=== PATIENT | female | born 1980 | race Caucasian/White ===

== ENCOUNTER 2020-07-16 09:28 | Outpatient (REF) | payer OTHER, SELFPAY ==
[2020-07-16 12:03] LABS: Hematocrit 43.2 % (37-47); Hemoglobin 14.4 g/dl (12.0-16.0); Mean Corpuscular HGB Conc 33.3 g/dl (31.0-35.0); Mean Corpuscular Hemoglobin 30.3 pg (27.0-33.0); Mean Corpuscular Volume 90.9 fL (80-98); Platelet Count 281 X10*3/uL (160-400); Red Blood Count 4.75 X10*6/uL (4.20-5.50); Red Cell Distribution Width 12.3 % (11.0-16.0); White Blood Count 11.4 X10*3/uL (4.8-10.8)
[2020-07-16 12:43] LABS: Alanine Aminotransferase 46 U/L (0-31); Albumin Level 4.5 g/dL (3.5-5.0); Alkaline Phosphatase 66 U/L (39-117); Anion Gap 13 (12-20); Aspartate Amino Transferase 38 U/L (5-31); Bilirubin Direct 0.2 mg/dL (0.0-0.5); Bilirubin Total 0.6 mg/dL (0.0-1.0); Blood Urea Nitrogen 13 mg/dL (9-16); Carbon Dioxide 26 mmol/L (22-29); Chloride 104 mmol/L (96-108); Cholesterol 214 mg/dL; Estimated Glomerular Filt Rate > 60; Glucose Fasting 88 mg/dL (60-99); HDL Cholesterol 51 mg/dL; LDL Cholesterol Calculated 136 mg/dl; Potassium 4.3 mmol/L (3.3-5.1); Sodium 139 mmol/L (135-145); Total Protein 7.2 g/dL (6.5-8.0); Triglycerides 139 mg/dL
[2020-07-16 13:03] LABS: TSH reflex Free T4 1.72 uIU/mL (0.32-4.0)
[2020-07-16 15:22] LABS: CT PCR NOT DETECTED (Not Detect.); NG PCR NOT DETECTED (Not Detect.)
[2020-07-17 08:22] LABS: BV Int Neg Control Negative (Negative); BV Int Pos Control Positive (Positive)
[2020-07-19 05:42] LABS: HPV mRNA E6/E7 rflx Not Detected (Not Detected)
== END 2020-07-16 09:29 | disposition home or self-care (01) ==
LOC: HO.LAB 09:28
PROVIDERS: Obstetrics & Gynecology; PCP Hospitalist; Visit Provider Hospitalist
DX: Z01.419 Encounter for gynecological examination (general) (routine) without abnormal findings (principal); Z11.3 Encounter for screening for infections with a predominantly sexual mode of transmission; Z11.51 Encounter for screening for human papillomavirus (HPV)
CPT/HCPCS: 36415; 80048; 80061; 80076; 84443; 85027; 87480; 87491; 87510; 87591; 87624; 87660; 88142

== ENCOUNTER 2020-07-29 15:50 | Outpatient (REF) | payer OTHER, SELFPAY ==
--- NOTE | ~2020-07-29 | MM_ITS ---
EXAMINATION: MM SCREENING DIGITAL BREAST TOMOSYNTHESIS, BILATERAL CLINICAL INFORMATION: Screening. Asymptomatic. Age 40. No prior breast imaging. Family history breast cancer, paternal grandmother. The lifetime risk of breast cancer based on the Tyrer-Cuzick Model is 16%. COMPARISON: None (current study represents initial baseline exam). TECHNIQUE: Digital breast tomosynthesis is performed in both the craniocaudal and mediolateral oblique views along with computer-aided detection (CAD). Synthesized 2D images are generated from the tomosynthesis. Additional right CC and right MLO views are provided. FINDINGS: There are scattered areas of fibroglandular density (ACR BI-RADS breast composition Category b). There are no significant masses, abnormal calcifications, or other abnormalities. The axilla and skin contours are unremarkable. MM/MM tomosynthesis screening BI IMPRESSION: No mammographic evidence of malignancy. ASSESSMENT: BI-RADS 1: Negative RECOMMENDATION: Routine annual mammography screening. This patient's information was entered into a reminder system with a target due date for their next mammogram.
== END 2020-07-29 15:51 | disposition home or self-care (01) ==
LOC: HO.MAMMO 15:50
PROVIDERS: PCP Hospitalist; Visit Provider Hospitalist
DX: Z12.31 Encounter for screening mammogram for malignant neoplasm of breast (principal)
CPT/HCPCS: 77063; 77067

== ENCOUNTER 2020-12-24 15:51 | Outpatient (REF) | payer OTHER, SELFPAY ==
[2020-12-24 17:45] LABS: Alanine Aminotransferase 18 U/L (0-31); Albumin Level 4.3 g/dL (3.5-5.0); Alkaline Phosphatase 57 U/L (39-117); Anion Gap 11 (12-20); Aspartate Amino Transferase 18 U/L (5-31); Bilirubin Total 0.4 mg/dL (0.0-1.0); Blood Urea Nitrogen 15 mg/dL (9-16); Calcium 9.1 mg/dL (8.4-10.2); Carbon Dioxide 23 mmol/L (22-29); Chloride 107 mmol/L (96-108); Estimated Glomerular Filt Rate > 60; Glucose Random 144 mg/dL (60-115); Potassium 3.9 mmol/L (3.3-5.1); Sodium 137 mmol/L (135-145)
== END 2020-12-24 15:52 | disposition home or self-care (01) ==
LOC: HO.LAB 15:51
PROVIDERS: Visit Provider Hospitalist
DX: R74.8 Abnormal levels of other serum enzymes (principal)
CPT/HCPCS: 36415; 80053

== ENCOUNTER 2021-11-12 09:32 | Outpatient (REF) | payer OTHER, SELFPAY ==
[2021-11-12 11:47] LABS: Hematocrit 40.8 % (37.0-47.0); Hemoglobin 13.7 g/dl (12.0-16.0); Mean Corpuscular HGB Conc 33.6 g/dl (31.0-35.0); Mean Corpuscular Hemoglobin 30.6 pg (27.0-33.0); Mean Corpuscular Volume 91.1 fL (80.0-98.0); Platelet Count 205 X10*3/uL (160-400); Red Blood Count 4.48 X10*6/uL (4.20-5.50); Red Cell Distribution Width 12.7 % (11.0-16.0); White Blood Count 9.2 X10*3/uL (4.8-10.8)
[2021-11-12 12:15] LABS: TSH reflex Free T4 1.09 uIU/mL (0.32-4.0)
[2021-11-12 12:24] LABS: Cholesterol 218 mg/dL; HDL Cholesterol 50 mg/dL; LDL Cholesterol Calculated 145 mg/dl; Triglycerides 116 mg/dL
== END 2021-11-12 09:33 | disposition home or self-care (01) ==
LOC: HO.WFDLDS 09:32
PROVIDERS: Visit Provider Hospitalist
DX: Z00.00 Encounter for general adult medical examination without abnormal findings (principal)
CPT/HCPCS: 36415; 80061; 84443; 85027

== ENCOUNTER 2022-04-11 18:10 | Emergency (ER) | payer OTHER, SELFPAY ==
--- NOTE | ~2022-04-11 | US_ITS ---
Indication: Pain, evaluate for muscle tear Real-time imaging by the government employee. Findings; No suspicious finding on the imaging submitted. No fluid collection. US/US extremity nonvascular palacios IMPRESSION: There is no obvious finding on ultrasound. Given history recommend MR for full evaluation
[2022-04-11 18:19] VITALS: BP 156/101; PULSE 96; RESP 18; TEMP 36.7; O2SAT 98; BMI 40.2
--- NOTE | 2022-04-11 18:20 | ED.LOWEXIN ---
HPI - Extremity Injury (Lower) General Chief Complaint: Extremity Injury, Lower Stated Complaint: right leg injury Time Seen by Provider: 04/11/22 18:20 Source: patient Mode of arrival: ambulatory History of Present Illness HPI Narrative: 42-year-old feel with a past medical history of hypothyroid, presenting to the ED complaining of right half pain s/p hearing pop while doing kick boxing class afternoon. Denies direct trauma to calf. Denies injury to either area. Reports difficulty ambulating secondary to pain. Denies fever, chills complaint: leg injury Onset (ago): hour(s) Related Data Previous Rx's Medication Instructions Recorded levothyroxine 100 mcg tablet 200 mcg PO DAILY #180 tabs 10/29/21 carbamide peroxide 6.5 % ear drops 5 drp otic (ear) left DAILY 4 days 01/09/22 (Debrox) #15 mL Allergies Allergy/AdvReac Type Severity Reaction Status Date / Time sulfacetamide Allergy Intermediate allergy Verified 01/09/22 16:55 [From Sulfacet-R] Review of Systems Review of Systems: Constitutional: No Fever, No Chills ENT/Mouth: No Ear Pain, No Nasal Congestion, No sore throat, No Rhinorrhea, No Swallowing Difficulty Cardiovascular: No Chest Pain, No SOB Respiratory: No Cough, No Sputum, No Wheezing Gastrointestinal: No Nausea, No Vomiting, No Diarrhea, No Constipation, No Abdominal pain Genitourinary: No Dysuria, No Urinary Frequency, No Hematuria, No Flank Pain Musculoskeletal: + calf pain, No Myalgias, No Joint Swelling Skin: No Skin Lesions, No rash Neuro: No Weakness, No Numbness, No Paresthesias Yes all other systems are reviewed and are negative Constitutional: Constitutional: Reports as per HPI [facility] Past Medical History Attestation statement: The following information was validated with the patient. Surgical History No pertinent past surgical history Family History Family History Father No problems noted. Mother No problems noted. 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 Current occupational exposures/hazards: No Gender identity: Female Cognitive needs: No Hearing needs: No Vision needs: No Physical Exam Vital Signs: Vital Signs: Last Vital Signs Temp 98.1 F 04/11/22 18:19 Pulse 96 04/11/22 18:19 Resp 18 04/11/22 18:19 BP 156/101 H 04/11/22 18:19 Pulse Ox 98 04/11/22 18:19 O2 Del Method 04/11/22 18:19 BMI result Body Mass Index 40.2 Const: General: cooperative, healthy appearing and no acute distress Orientation/consciousness: patient oriented x3 Limitations: no limitations HEENT: Head: Yes normal to inspection and Yes atraumatic Ears: hearing grossly normal bilaterally General nose exam: Normal external nose present Face and sinus: Yes normal facial exam Eyes: General: appearance normal, both eyes and all related structures EOM: EOMs intact bilaterally Neck: Neck: Yes normal visual inspection and Yes no meningeal signs Resp: Effort & Inspection: normal respiratory effort and no respiratory distress Cardio: Rate: regular rate Heart sounds: S1 normal heart sound present and S2 normal heart sound present Peripheral pulses: Peripheral pulses 2+ throughout Skin: Rashes: no rashes Wounds: no wounds Neuro: General: patient oriented x3, tone normal and no meningeal signs Extrem: Other: Right calf without noted deformity/ecchymosis or erythema. Tender to mid calf with mild swelling. Negative Hickman test Course Course Course Narrative: US extremity nonvascular palacios IMPRESSION: There is no obvious finding on ultrasound. Given history recommend MR for full evaluation >> patient placed in walking boot and supplied with crutches is to follow-up with orthopedics Results discussed with patient including worrisome signs and symptoms and strict return precautions, and when to return to the emergency department. They verbalized understanding and feel safe for discharge at this time. Medical Decision Making Medical Decision Making MDM Narrative: 42-year-old feel with a past medical history of hypothyroid, presenting to the ED complaining of right half pain s/p hearing pop while doing kick boxing class afternoon. On exam hypertensive likely from pain, ambulating with limping gait, physical exam as above. Neurovascular intact distally. Negative Hickman test. Concern for gastrocnemius muscle tear/sprain vs achilles injury. Low suspicion for DVT. No evidence of infection Plan: Ultrasound Differential Diagnosis Differential Diagnoses: The differential diagnosis associated with the presentation includes As above Independent Interpretation I performed an independent interpretation of an: Ultrasound Radiology Impression Discussion of test interpretation with radiology: I have reviewed the radiologist's reading. Prescription Management I considered prescription management with: Pain Medication Discharge Plan Discharge Clinical Impression: Gastrocnemius muscle strain Patient Disposition: Home, Self-Care Instructions: Muscle Strain (ED), R.I.C.E. Treatment (ED) Additional Instructions: you likely strained her calf muscle. Use walking boot and crutches as needed. Bear weight only as tolerated. Have close follow-up with orthopedic Ice and elevate Take Tylenol and Motrin. If symptoms persist or worsen return to the emergency department Prescriptions: No Action levothyroxine 100 mcg tablet 200 mcg PO DAILY Qty: 180 1RF Debrox 6.5 % drops 5 drp otic (ear) left DAILY 4 Days Qty: 15 0RF Referrals: [facility] – [place] Orthopedic Surgeons [Provider Group] - 5 days
== END 2022-04-11 21:26 | disposition home or self-care (01) ==
PROVIDERS: Emergency Provider Emergency Medicine
DX: S86.811A Strain of other muscle(s) and tendon(s) at lower leg level, right leg, initial encounter (principal); X50.9XXA Other and unspecified overexertion or strenuous movements or postures, initial encounter; M79.661 Pain in right lower leg; F17.210 Nicotine dependence, cigarettes, uncomplicated; Y93.71 Activity, boxing; Y92.9 Unspecified place or not applicable; Y99.9 Unspecified external cause status
CPT/HCPCS: 76882; 99282; 99284

== ENCOUNTER → 2022-04-28 13:49 | Outpatient (BNVA) | payer OTHER, SELFPAY | PROVIDERS: Visit Provider Physician Assistant | DX: S86.811A Strain of other muscle(s) and tendon(s) at lower leg level, right leg, initial encounter (principal) ==

== ENCOUNTER 2022-06-03 16:02 | Outpatient (REF) | payer OTHER, SELFPAY | END 2022-06-03 16:03 | disposition home or self-care (01) | LOC: HO.LAB 16:02 | PROVIDERS: PCP Hospitalist; Visit Provider Hospitalist | DX: E03.9 Hypothyroidism, unspecified (principal) | CPT/HCPCS: 36415; 84439; 84443 ==

== ENCOUNTER 2022-06-17 15:49 | Outpatient (REF) | payer OTHER, SELFPAY ==
--- NOTE | ~2022-06-17 | MM_ITS ---
EXAMINATION: MM SCREENING DIGITAL BREAST TOMOSYNTHESIS, BILATERAL CLINICAL INFORMATION: Screening. Asymptomatic. The lifetime risk of breast cancer based on the Tyrer-Cuzick Model is 18.5%. COMPARISON: Mammography: 07/29/2020 TECHNIQUE: Digital breast tomosynthesis is performed in both the craniocaudal and mediolateral oblique views along with computer-aided detection (CAD). Synthesized 2D images are generated from the tomosynthesis. FINDINGS: There are scattered areas of fibroglandular density (ACR BI-RADS breast composition Category b). Within the right breast on craniocaudal view medially, there is a circumscribed approximately 6 mm in diameter density without calcifications lying approximately 8 cm from the nipple for which spot compression view is recommended. No correlate on mediolateral oblique projection is identified. Within the superior aspect of the left breast, there is an asymmetric density for which spot compression view is recommended. I do not definitely see a correlate on craniocaudal view. MM/MM tomosynthesis screening BI IMPRESSION: Bilateral densities for further evaluation as described. ASSESSMENT: BI-RADS 0: Incomplete - Need Additional Imaging Evaluation RECOMMENDATION: 1. Additional views of the bilateral breasts. 2. Targeted ultrasound if warranted after review of the additional views. 3. Radiology department staff will contact the patient for additional imaging. This patient's information was entered into a reminder system with a target due date for their next mammogram.
== END 2022-06-17 15:50 | disposition home or self-care (01) ==
LOC: HO.MAMMO 15:49
PROVIDERS: Visit Provider Hospitalist
DX: Z12.31 Encounter for screening mammogram for malignant neoplasm of breast (principal)
CPT/HCPCS: 77063; 77067

== ENCOUNTER 2022-07-01 16:00 | Outpatient (RCR) | payer OTHER, SELFPAY ==
--- NOTE | 2022-05-20 17:11 | MHC.PT.EP ---
[facility] [place] Office [place] Office [place] Office [address] Laquita Ibanez [address] [phone] F: [phone] F: [phone] F: [phone] F: [phone] Physical Therapy Plan of Care Date of Evaluation: Date of Surgery: Diagnosis: R calf strain/sprain Assessment: Patient is a 42 y.o. feamle who is referred to PT by KYLE Estrada, with Dx of RIGHT calf sprain/strain. Patient impairments include pain, limited ROM, weakness, antalgic gait. Patient current functional limitations are low squats to cabinets, climb, kickboxing/ vigorous exercises, hiking, and walking long distances. Patient will benefit from skilled PT to address aforementioned impairments and functional limitations to meet established goals. Frequency and Duration: The patient will be seen 1x/week for 4 weeks Short Term Goals: 2 weeks Patient demonstrates consistency and independence with HEP to self manage symptoms. Patient presents with increased R ankle DF 0 degrees to restore normal heel to toe gait pattern. Comprehensive Ophthalmologist Goals: 4 weeks Patient presents with increased R ankle eversion 5/5 to be able to perform low squats to cabinets. Patient presents with increased R ankle DF AROM 5 degrees to be able to climb hills when walking outdoors. Treatment Plan: Modalities to reduce pain, spasms and effusion. Manual therapy to restore motion and function. Therapeutic exercise to improve strength and flexibility. Neuromuscular re-education for posture and balance. Therapeutic activities to return to functional activities of daily living. Electronically signed by: Francia Forrester, PT, DPT Please sign and return to therapist. Thank you for your referral.
--- NOTE | 2022-07-02 17:57 | MHC.PT.DC ---
[facility] [place] Office [place] Office [place] Office [address] Laquita Ibanez [address] [phone] F: [phone] F: [phone] F: [phone] F: [phone] Physical Therapy Discharge Report Diagnosis: R calf strain/sprain Date of Surgery: Date of Evaluation: 05/20/22 Date of Discharge: 07/02/22 Treatments to Date: 6 Cancellations to Date: No Shows to Date: Discharge Status: Achieved Goals Improved Function Independent with HEP Discharge Summary: Pt roosevelt all dynamic activities w/o px to her gastroc . Significant increase with LEF'S All Goals met. Patient discharged from PT. Electronically signed by: Francia Forrester, PT, DPT Please sign and return to therapist. Thank you for your referral.
== END 2022-07-02 17:58 | disposition home or self-care (01) ==
LOC: HO.PT 16:00
PROVIDERS: PCP Hospitalist; Visit Provider Physician Assistant
DX: S86.811D Strain of other muscle(s) and tendon(s) at lower leg level, right leg, subsequent encounter (principal)
CPT/HCPCS: 97035; 97110; 97140; 97161; 97530

== ENCOUNTER 2022-07-17 11:07 | Outpatient (REF) | payer OTHER, SELFPAY ==
[2022-07-17 12:40] LABS: Estimated Average Glucose 108 mg/dL; Hemoglobin A1c % 5.4 %
[2022-07-17 13:10] LABS: TSH reflex Free T4 4.92 uIU/mL (0.32-4.0)
[2022-07-17 13:49] LABS: Free T4 (Free Thyroxine) 1.29 ng/dL (0.71-1.85)
== END 2022-07-17 11:08 | disposition home or self-care (01) ==
LOC: HO.LAB 11:07
PROVIDERS: PCP Hospitalist; Visit Provider Hospitalist
DX: Z00.00 Encounter for general adult medical examination without abnormal findings (principal); R73.09 Other abnormal glucose
CPT/HCPCS: 36415; 83036; 84439; 84443

== ENCOUNTER 2022-07-23 14:48 | Outpatient (REF) | payer OTHER, SELFPAY ==
--- NOTE | ~2022-07-23 | MM_ITS ---
EXAMINATION: MM DIAGNOSTIC DIGITAL BREAST TOMOSYNTHESIS, BILATERAL CLINICAL INFORMATION: Recall from screening for subtle asymmetric density medial right breast and upper left breast, suspect summation artifact or incompletely compressed glandular tissue. COMPARISON: Mammography: 06/17/2022, 05/29/2020 (baseline). TECHNIQUE: Digital breast tomosynthesis is performed. 2D images are generated from the tomosynthesis. The following views are obtained: Spot right CC, spot left MLO. FINDINGS: There are scattered areas of fibroglandular density (ACR BI-RADS breast composition Category b). The additional views show no underlying mass or architectural abnormality or persistent asymmetric density. Results are discussed with the patient at time of visit. MM/MM tomosynthesis added view BI IMPRESSION: Additional views show no significant changes from baseline exam. ASSESSMENT: BI-RADS 1: Negative RECOMMENDATION: Routine annual mammography screening. This patient's information was entered into a reminder system with a target due date for their next mammogram.
== END 2022-07-23 14:49 | disposition home or self-care (01) ==
LOC: HO.MAMMO 14:48
PROVIDERS: PCP Hospitalist; Visit Provider Hospitalist
DX: R92.2 Inconclusive mammogram (principal)
CPT/HCPCS: 77062; 77066

== ENCOUNTER 2022-10-19 11:46 | Outpatient (AMB) | payer OTHER, SELFPAY ==
[2022-10-19 13:01] VITALS: BP 138/78; PULSE 96; TEMP 35.4; O2SAT 98
--- NOTE | 2022-10-19 13:01 | MHC.OFFWIV ---
Intake Vital Signs 10/19/22 13:01 Height 5 ft 5 in BP 138/78 Blood Pressure Location Lt brachial Position Sitting Pulse 96 Pulse Source Pulse Oximeter Temp 95.7 F L Temp Source Temporal Artery Scan Pulse Oximetry (%) 98 Oxygen Delivery Method Room Air Intake Visit Reasons: EST/left ear ache/[phone] Patient Tobacco Use Status: Current everyday Tobacco user (rarely smokes) Allergies sulfacetamide [From Sulfacet-R] Allergy (Intermediate, Verified 10/19/22 13:01) allergy Do you need a note to return to daycare/school/sports/work: No HPI HPI Comments History of Present Illness Details 42-year-old female presents for left-sided ear pain for the past 2 weeks. States that she has been taking [id number] medication with poor effect. She does report a sore throat, but does not report measured fevers, chills, dizziness, loss balance, palpitations, or rashes. PFSH Surgical History No pertinent past surgical history Family History Father No problems noted. Mother No problems noted. 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 occupational exposures/hazards: No Gender identity: Female Cognitive needs: No Hearing needs: No Vision needs: No Review of Systems Const Details: Constitutional: No Fever, No Chills ENT/Mouth: Positive left Ear Pain, No Hoarseness, positive sore throat Eyes: No Eye Pain, No Swelling, No Redness, No Foreign Body Cardiovascular: No Chest Pain, No SOB Respiratory: No Cough, No Dyspnea Gastrointestinal: No Nausea, No Vomiting, No Diarrhea, No abdominal Pain Genitourinary: No Dysuria, No Hematuria Musculoskeletal: No joint pain, No Myalgias, No Joint Swelling Skin: No Skin lacerations, No rash Neuro: No Weakness, No Dizziness, No Headache All systems reviewed & are unremarkable except as noted in HPI and below Physical Exam Vital Signs: Last Vital Signs Temp 95.7 F L 10/19/22 13:01 Pulse 96 10/19/22 13:01 BP 138/78 10/19/22 13:01 Pulse Ox 98 10/19/22 13:01 Oxygen Delivery Method Room Air 10/19/22 13:01 Appearance: Alert. Oriented X3. No acute distress. Eyes: Pupils equal, round and reactive to light. ENT: Pharynx normal. Left tympanic membrane erythematous, bulging, suppurative without perforation. Bilateral canals intact. Left canal impacted with cerumen, cerumen disimpacted. No mastoid tenderness. No tenderness to tragal pressure. Neck: Normal inspection. Neck supple. No vertebral tenderness or step-offs. No nuchal rigidity. CVS: Normal heart rate and rhythm. Pulses normal. Respiratory: No respiratory distress. Breath sounds normal. Skin: Skin warm and dry. Normal skin color. Normal skin turgor. Extremities: Gait well balanced well coordinated. Neuro: No motor deficit. No sensory deficit. Cranial nerves 2-12 intact. Assessment & Plan Assessment & Plan (1) Otitis media: Code(s): H66.90 - Otitis media, unspecified, unspecified ear (2) Impacted cerumen of both ears: Code(s): H61.23 - Impacted cerumen, bilateral Plan 42-year-old female presents for left-sided ear pain and sore throat for the past several weeks. She does have a history of cerumen impaction and otitis media. Exam indicates impacted cerumen to the left canal, right tympanic membrane and canal are clear. After cerumen disimpaction by irrigation lavage by JOE, it is noted that patient's left tympanic membrane is erythematous, bulging, with suppurative effusions without perforation. Considering that the patient has been treated multiple times in the past with Augmentin for otitis media, will treat accordingly. Patient has strep pharyngitis test is pending, this medication will also cover for strep. Patient does not have any fevers, chills, no indication of mastoiditis, or nuchal rigidity. No meningeal sign. No rashes. Patient verbalized understanding of discharge instructions. Verbalized understandings of signs and symptoms indicating need for emergent intervention. Orders: Orders AMB Rapid Strep Screen Today J02.9 - Acute pharyngitis, unspecified Medications: New amoxicillin-pot clavulanate 875-125 mg 1 tab PO Q12H 10 days 20 tabs 0RF Patient Instructions: You were evaluated for left-sided ear pain and sore throat. Her strep test is pending. Your exam indicates left otitis media, and internal ear infection. We disimpacted cerumen from the left canal. We are treating you for otitis media with Augmentin 875 mg every 12 hours for the next 10 days. This will also cover for pharyngitis, your strep test is pending. If your test is positive, you do not need to have any further care as this medication does cover for strep pharyngitis. Alternate Tylenol 650 mg every 6 hours and Motrin 600 mg every 6 hours as needed for pain and fever management. Consider taking these medications 3 hours apart so you have pain and fever management every 3 hours. Write down what time you take these medications to prevent accidental overdose. Motrin is the same medication as Advil and ibuprofen. Tylenol is the same medication as acetaminophen. Thank you for choosing this urgent care for evaluation. Please follow-up with primary care physician as needed. Return to the emergency department for any new, concerning, or worsening symptoms. Coding Level of Care Code Est Pt Level 3 (41236) Diagnoses Otitis media H66.90 Impacted cerumen of both ears H61.23
== END 2022-10-19 14:25 | disposition home or self-care (01) ==
PROVIDERS: PCP Hospitalist; Visit Provider Nurse Practitioner Family
DX: H66.90 Otitis media, unspecified, unspecified ear (principal); H61.23 Impacted cerumen, bilateral
CPT/HCPCS: 99213

== ENCOUNTER 2022-10-29 09:49 | Outpatient (AMB) | payer OTHER, SELFPAY ==
--- NOTE | 2022-10-29 10:41 | MHC.OFFWIV ---
Intake Vital Signs 10/29/22 10:57 BP 118/78 Blood Pressure Location Rt brachial Position Sitting Pulse 60 Temp 98.7 F Temp Source Temporal Artery Scan Pulse Oximetry (%) 98 Oxygen Delivery Method Room Air Intake Visit Reasons: EP Ear pain (lobby) Intake Note: Patient here for left ear pain, she came to be seen in our walk in about 10 days ago and was given antibiotics, she has now finished meds and feels like it didnt help because she is still having the same issue. Patient Tobacco Use Status: Current everyday Tobacco user Allergies sulfacetamide [From Sulfacet-R] Allergy (Intermediate, Verified 10/19/22 13:01) allergy HPI EP Ear pain (lobby) HPI Details Patient is a 42-year-old female who comes to the walk-in clinic complaining of persistent fullness to the left greater than right ear for some weeks now. She was evaluated 10 days ago and diagnosed otitis media, prescribed Augmentin states that she completed the course however symptoms have not improved. She denies fever or chills, headache or dizziness, malaise or myalgias, sore throat, cough, or other respiratory symptoms or significant associated symptoms. She does have some loss of hearing and hears crackling in the ears. No history of his own persistent ear infections since being diagnosed with COVID a few years ago, at which time she states that she had some difficulty clearing the infection. No underlying immunocompromising issues reported. [facility] Surgical History No pertinent past surgical history Family History Father No problems noted. Mother No problems noted. 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 occupational exposures/hazards: No Gender identity: Female Cognitive needs: No Hearing needs: No Vision needs: No Review of Systems Const All systems reviewed & are unremarkable except as noted in HPI and below Physical Exam Vital Signs: Last Vital Signs Temp 98.7 F 10/29/22 10:57 Pulse 60 10/29/22 10:57 BP 118/78 10/29/22 10:57 Pulse Ox 98 10/29/22 10:57 Oxygen Delivery Method Room Air 10/29/22 10:57 Const General: cooperative, healthy appearing, comfortable, no acute distress, alert, awake, Physically active and well groomed; No anxious, diaphoretic, ill appearing, intoxicated appearing, poor hygiene or tired appearing Nutritional Appearance: average body habitus Orientation/consciousness: oriented to person Limitations: no limitations HEENT Head: Yes normal to inspection, Yes normocephalic and Yes atraumatic Ears: hearing grossly normal bilaterally, external ears normal, Abnormal EAC present (left) cerumen impaction and TM abnormal dull and erythematous Face and sinus: Yes normal facial exam, Yes sinuses nontender and Yes face symmetric Eyes General: appearance normal, both eyes and all related structures Neck Neck: Yes normal visual inspection, Yes full ROM, Yes no lymphadenopathy, Yes trachea midline, Yes supple and No anterior neck swelling Chest Chest palpation & inspection: normal palpation of entire chest wall Resp Effort & Inspection: normal respiratory effort Skin Other: Good color, warm and dry Neuro General: oriented to person Psych Appearance: grossly normal Mental Status: mental status grossly normal Speech and movement: Normal speech and movement present Affect: normal affect Attitude: cooperative Thought process: Normal thought process present Insight: Good insight present (Psych) Judgement: Good judgement present (Psych) Office Procedures Cerumen Removal From which ear canal was the cerumen removed: left Removal: otoscope w/curette Notes: patient tolerated procedure well and ear canal clear (Only small residual) [id number] Wax Removal by Spoon/Curette Assessment & Plan Assessment & Plan (1) Otitis media: Code(s): H66.90 - Otitis media, unspecified, unspecified ear Plan: Patient with apparent persistent otitis media on the right side, and apparent acute otitis externa underneath her excessive cerumen on the left ear canal. I removed a significant amount of cerumen from the left canal. Will put her on a new course of oral antibiotics for the otitis media, and drops for the right side. She should follow-up if symptoms persist or worsen. (2) Otitis externa: Code(s): H60.90 - Unspecified otitis externa, unspecified ear Medications: New cefdinir 300 mg PO BID 10 days 20 caps 0RF [id number]-[id number]-[id number] 3.5-10,000-1 mg/mL-unit/mL-% 4 drps otic (ear) left QID 7 days 10 mL 0RF Coding Level of Care Code Est Pt Level 4 (18822) Diagnoses Otitis media H66.90 Otitis externa H60.90 CPT Codes Office Procedure - CPT: 94353-Wbo Wax Removal by Spoon/Curette ([id number])
[2022-10-29 10:57] VITALS: BP 118/78; PULSE 60; TEMP 37.1; O2SAT 98
== END 2022-10-29 11:53 | disposition home or self-care (01) ==
PROVIDERS: PCP Hospitalist; Visit Provider Physician Assistant Medical
DX: H66.92 Otitis media, unspecified, left ear (principal); H60.92 Unspecified otitis externa, left ear
CPT/HCPCS: 69210; 99214

== ENCOUNTER 2022-10-30 16:27 | Outpatient (AMB) | payer OTHER, SELFPAY ==
--- NOTE | 2022-10-30 16:35 | MHC.PC.OV ---
Vital Signs 10/30/22 16:38 Height 5 ft 5 in Weight 236 lb BMI 39.3 BP 124/74 Blood Pressure Location Lt brachial Position Sitting Pulse 82 Pulse Source Pulse Oximeter Pulse Oximetry (%) 99 Intake Visit Reasons: Bumps on back area Intake Note: pt is here for bumps on upper back, unsure of how long it was there. 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 Accompanied by: Self / Same As Patient Allergies sulfacetamide [From Sulfacet-R] Allergy (Intermediate, Verified 10/30/22 17:00) allergy Medication List - Last Reconciled 10/30/22 by Lakia Duncan CNP cefdinir 300 mg PO BID 10 days levothyroxine 200 mcg (2 x 100 mcg) PO DAILY [id number] 3.5-10,000-1 mg/mL-unit/mL-% 4 drps otic (ear) left QID 7 days Tobacco use date assessed: 05/20/22 Dental Screening Dental Screen Date: 10/30/22 Did you have a dental visit in the last 12 months?: Yes Did you have a dental problem in the last 6 months where you did not have access to dental care?: No Was dental information given to patient?: Patient has dentist HPI HPI Comments History of Present Illness Details 42-year-old female presents with complaints of painless bumps to her back. She is unsure of how long the bumps have been present. She initially thought they were pimples. She denies burning sensation of the bumps. No fever, chills, body ache, fatigue, weakness. She admits to taking levothyroxine as prescribed. [facility] Surgical History No pertinent past surgical history Family History Father No problems noted. Mother No problems noted. 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 Shreyas Balderas, Cherise Wright, Eric Pacheco and colleagues, with an educational prasad from [employer]. Review of Systems Const Details: Const Denies chills, Denies fatigue, Denies fever(s), Denies headache(s) and Denies weakness ENT Denies dizziness and Denies headache(s) Card Denies chest pain, Denies lightheadedness, Denies dyspnea and Denies other (Palpitations) Resp Denies cough, Denies dyspnea, Denies wheezing and Denies other ( shortness of breath) GI Denies abdominal pain, Denies melena, Denies hematochezia, Denies change in bowel habits, Denies dyspepsia and Denies nausea Denies hematuria and Denies dysuria Musc Denies abnormal gait, Denies myalgias, Denies arthralgias, Denies numbness and Denies tingling Skin/Breast Reports lumps to posterior neck and upper back, Denies unusual bruising and Denies wounds Neuro Denies abnormal gait, Denies dizziness, Denies headache(s), Denies memory loss, Denies numbness, Denies Sensory deficit (Neuro), Denies tingling and Denies weakness Psych Denies anxiety and Denies depression Endo Denies fatigue Aller/Immun Denies wheezing Physical exam (Primary Care) Vital Signs: Last Vital Signs Pulse 82 10/30/22 16:38 BP 124/74 10/30/22 16:38 Pulse Ox 99 10/30/22 16:38 BMI result Body Mass Index 39.3 Tobacco/Smoking Status: Tobacco use Status Tobacco use date assessed 05/20/22 10/30/22 16:37 Patient Tobacco Use Status Current everyday Tobacco 10/30/22 16:37 e-Cigarette/Vaping Use Never Used 10/30/22 16:37 Thrive Assessment: Date of Thrive Assessment Date Thrive assessed 05/20/22 10/30/22 16:37 Const Other: General: no acute distress and well developed Nutritional Appearance: well nourished Orientation/consciousness: patient oriented x3 HENMT Head: Yes normocephalic and Yes atraumatic Eyes General: appearance normal, both eyes and all related structures Pupils: Equal, round and reactive pupils present EOM: EOMs intact bilaterally Resp Effort & Inspection: normal respiratory effort Auscultation: clear to auscultation bilaterally Cardio Rate: regular rate Rhythm: regular rhythm Heart sounds: S1 normal heart sound present, S2 normal heart sound present, no gallops, no murmurs and no rubs GI Palpation (GI): No Abdominal aortic bruit present, Soft to palpation, nontender, No hepatosplenomegaly present and No Rebound tenderness present Auscultation: normal bowel sounds General: Yes no CVA tenderness Back/Spine/Pelvis Back: no CVA tenderness Cervical Spine: cervical ROM normal and No Cervical spine tenderness Thoracic/Lumbar Spine: thoraco-lumbar ROM normal, No pain with thoraco-lumbar ROM, No thoracic spinal tenderness and No lumbar spinal tenderness Extrem General: Yes normal to inspection, No edema and No calf tenderness Skin General: warm and dry. Normal skin color. Normal skin turgor Lesions: Small, firm, mobile lump noted to posterior neck and upper back between the scapulae, no erythema, edema, or pustular head noted Rashes: no rashes Trauma: no lacerations or abrasions Wounds: no wounds Nails: normal Neuro General: patient oriented x3, gait normal and no focal neuro deficit Cranial nerves: Yes Equal, round and reactive pupils present Cognition (Neuro): normal cognition Gait exam (Neuro): Normal gait present Sensory Exam: No Sensory deficit (Neuro) Psych Affect: normal affect Assessment and Plan Assessment & Plan (1) Lumps on the skin: Code(s): R22.9 - Localized swelling, mass and lump, unspecified Plan: 42-year-old female presents with complaints of painless bumps to her back. She is unsure of how long the bumps have been present Small, firm, mobile lump noted to posterior neck and upper back between the scapulae, no erythema, edema, or pustular head noted Likely lipoma Ultrasound ordered Warm/cold compresses encouraged for pain or discomfort Return with symptoms or concerns Verbalized understanding and agreed with plan. (2) Hypothyroidism (acquired): Code(s): E03.9 - Hypothyroidism, unspecified Plan: TSH was slightly elevated in June 2022 TSH/T4 ordered Continue to take levothyroxine as prescribed Will review lab results and make changes to her care plan if warranted Follow-up with PCP as planned Return with concerns or symptoms Verbalized understanding and agreed with the treatment plan. Orders: Orders TSH reflex Free T4 Today E03.9 - Hypothyroidism, unspecified US soft tiss head and/or neck Today R22.9 - Localized swelling, mass and lump, unspecified Coding Level of Care Code Est Pt Level 3 (28937) Diagnoses Lumps on the skin R22.9 Hypothyroidism (acquired) E03.9 Time Spent (min) 25
[2022-10-30 16:38] VITALS: BP 124/74; PULSE 82; O2SAT 99; BMI 39.3
== END 2022-10-30 17:14 | disposition home or self-care (01) ==
PROVIDERS: PCP Hospitalist; Visit Provider Nurse Practitioner Family
DX: R22.9 Localized swelling, mass and lump, unspecified (principal); E03.9 Hypothyroidism, unspecified
CPT/HCPCS: 99213

== ENCOUNTER 2022-11-06 08:44 | Outpatient (REF) | payer OTHER, SELFPAY ==
[2022-11-06 10:27] LABS: TSH reflex Free T4 5.66 uIU/mL (0.32-4.0)
[2022-11-06 13:21] LABS: Free T4 (Free Thyroxine) 1.12 ng/dL (0.71-1.85)
== END 2022-11-06 08:45 | disposition home or self-care (01) ==
LOC: HO.LAB 08:44
PROVIDERS: PCP Hospitalist; Visit Provider Nurse Practitioner Family
DX: E03.9 Hypothyroidism, unspecified (principal)
CPT/HCPCS: 36415; 84439; 84443

== ENCOUNTER 2022-11-11 13:54 | Outpatient (REF) | payer OTHER, SELFPAY ==
--- NOTE | ~2022-11-11 | US_ITS ---
EXAMINATION: US SOFT TISSUE HEAD/NECK CLINICAL INFORMATION: Localized swelling, mass or lump, unspecified. COMPARISON: None available. TECHNIQUE: Linear transducer bliss-scale and color Doppler examination of the posterior neck/back. FINDINGS: Corresponding with the palpable findings in the posterior lower neck and upper back, there are 0.4 x 0.4 x 0.3 cm and 0.9 x 0.7 x 0.6 cm hypoechoic complex intradermal cysts. These show increase in through sound transmission and no associated color Doppler flow. There is no discrete draining sinus track. No mass or lymphadenopathy is seen. US/US soft tiss head and/or neck IMPRESSION: Corresponding with the palpable findings in the posterior lower neck/upper back, 4 mm and 9 mm intradermal cyst are seen. The appearance suggests possible epidermal inclusion cysts. These should be managed on a clinical basis.
== END 2022-11-11 13:55 | disposition home or self-care (01) ==
LOC: HO.US 13:54
PROVIDERS: PCP Hospitalist; Visit Provider Nurse Practitioner Family
DX: R22.9 Localized swelling, mass and lump, unspecified (principal)
CPT/HCPCS: 76536

== ENCOUNTER 2023-01-08 15:02 | Outpatient (REF) | payer OTHER, SELFPAY ==
[2023-01-08 16:43] LABS: TSH reflex Free T4 2.42 uIU/mL (0.32-4.0)
== END 2023-01-08 15:03 | disposition home or self-care (01) ==
LOC: HO.LAB 15:02
PROVIDERS: PCP Nurse Practitioner Family; Visit Provider Nurse Practitioner Family
DX: E03.9 Hypothyroidism, unspecified (principal)
CPT/HCPCS: 36415; 84443

== ENCOUNTER 2023-02-22 14:55 | Outpatient (AMB) | payer OTHER, SELFPAY ==
--- NOTE | 2023-02-22 14:59 | MHC.OFFVIS ---
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 She has no major concerns today she has noticed at times that her periods got a little bit closer together they seem to have spaced out a little bit more now in her more normal (about 24 days between the end of 1 period and Beginning of the next which is how she counts it). She had to return for repeat views of a mammogram last spring which was unnerving but everything turned out to be fine and she will be getting her yearly mammogram in the spring. She was told once about 10 years ago in [place] that she had fibroids and she is just wondering about them. They are not particularly causing her any trouble although when her periods became a little bit closer she wondered if that is what was going on she has lost a little bit await and so her periods her regularize little bit more now. Her thyroid is stable now on the levothyroxine and she was screened for other health concerns within the last couple of years. She thinks she gets enough calcium in her diet as well as has a balanced diet she does kickboxing and walking for exercise. 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 She is not sexually active now but when she was she was using withdrawal. If she became sexually active she would use condoms she has no real concerns about STIs, but is open to testing for what we normally test for. [facility] Surgical History No pertinent past surgical history Family History (Updated 02/22/23 @ 15:06 by VAIBHAV Morrison) Father No problems noted. Mother No problems noted. 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 Current occupational exposures/hazards: No Gender identity: Female Cognitive needs: No Hearing needs: No Vision needs: No Female Reproductive History Menstrual Age of Menarche: 12 Duration of menses: 3-5 days Date of last menstrual period: 02/17/23 control method: none Total pregnancies: 0 Date of last pap smear: 07/17/20 (negative) Date of Mammogram: 07/23/22 Physical Exam Vital Signs: Last Vital Signs BP 120/76 02/22/23 15:00 BMI result Body Mass Index 37.3 Const General: healthy appearing, comfortable, no acute distress, well developed and alert Nutritional Appearance: average body habitus Orientation/consciousness: patient oriented x3 Limitations: no limitations HEENT Head: Yes normocephalic Neck Neck: Yes normal visual inspection Thyroid: Thyroid normal Chest Chest palpation & inspection: normal inspection of the chest Breast/axilla inspection: normal inspection of the breasts and normal inspection of the axillae Breast/axilla palpation: normal palpation of the breasts and normal palpation of the axillae Resp Effort & Inspection: normal respiratory effort GI Inspection: Yes normal to inspection, No Abdominal wall edema and No distended Palpation (GI): Soft to palpation and nontender Other: External exam within normal limits though vulva is slightly pink. Patient not complaining of any itching currently but sometimes does have some itching. OTC Monistat discussed Vagina pink moist healthy appearing cervix pink moist with normal appearing mucus swabs taken for testing. Uterus difficult to feel completely but does not feel especially enlarged adnexa not enlarged good tone with Kegel General: Yes bladder normal to palpation External Female Exam: normal external appearance and normal appearance of the urethra Speculum Exam - Vagina: normal appearance of the vagina, normal palpation and normal vaginal discharge Speculum Exam - Cervix: normal appearance of the cervix, normal palpation and nontender Bimanual exam- vagina & uterus: normal bimanual exam, normal palpation, uterine size normal, bladder normal to palpation, consistency normal, normal palpation, uterine mobility normal, uterine shape normal, No Cervical tenderness present, non-tender and no cervical motion tenderness Bimanual Exam- Adnexa, other: normal adnexae, no masses, normal and No adnexal tenderness Neuro General: patient oriented x3 Results Reviewed Results Reviewed: Name: Lalita Brown Age/Sex: 40/F Attending: Sera Lomax NP : 1980 Submitted by: Lola Krishnan MD Copies to: Sera Lomax NP MR #: [id number] Status: DEP REF Collected: 07/16/20 Location: .LAB Received: 07/17/20 Interpretation Satisfactory for evaluation. Negative for intraepithelial lesion or malignancy. HPV mRNA E6/E7: NOT DETECTED This assay detects E6/E7 viral messenger RNA (mRNA) from 14 high-risk HPV types (16, 18, 31, 33, 35, 39, 45, 51, 52, 56, 58, 59, 66, 68) HPV testing performed by [facility], [place], [place]. See reference laboratory portion of the EMR for entire report. Clinical Information LMP: 07/06/20 Previous PAP test: Unknown Date/Findings Material Received ThinPrep Cervical Copies To Lola Krishnan MD [address] [place] [address] [place] [id number] Sera Lomax NP [address] [place] [address] Electronically Signed By: Raquel Beltran 07/19/20 9861 The Pap Test is a screening procedure with the inherent possibility of both false negative and false positive results. Results should be interpreted in the context of historic and current clinical findings. Reliability of the Pap Test is enhanced by performing the test on a regular repetitive basis. Patient: Lalita Brown Age/Sex: 40/F MR#: [id number] Page 1 of 1 Patient: Lalita Brown MR#: [id number] : 1980 Acct:[id number] Age/Sex: 42 / F ADM Date: 07/23/22 Loc: HO.MAMMO Attending Dr: Sera Lomax NP Ordering Physician: Sera Lomax NP Results: 1Negative Date of Service: 07/23/22 Follow Up: 1 Year From Original Mammogram Procedure(s): MM tomosynthesis added view BI Accession Number(s): [id number] cc: Sera Lomax NP~ EXAMINATION: MM DIAGNOSTIC DIGITAL BREAST TOMOSYNTHESIS, BILATERAL CLINICAL INFORMATION: Recall from screening for subtle asymmetric density medial right breast and upper left breast, suspect summation artifact or incompletely compressed glandular tissue. COMPARISON: Mammography: 06/17/2022, 05/29/2020 (baseline). TECHNIQUE: Digital breast tomosynthesis is performed. 2D images are generated from the tomosynthesis. The following views are obtained: Spot right CC, spot left MLO. FINDINGS: There are scattered areas of fibroglandular density (ACR BI-RADS breast composition Category b). The additional views show no underlying mass or architectural abnormality or persistent asymmetric density. Results are discussed with the patient at time of visit. MM/MM tomosynthesis added view BI IMPRESSION: Additional views show no significant changes from baseline exam. ASSESSMENT: BI-RADS 1: Negative RECOMMENDATION: Routine annual mammography screening. This patient's information was entered into a reminder system with a target due date for their next mammogram. Dictated By: Austin Hernández MD Signed By: <Electronically signed by Austin Hernández MD in OV> 07/23/22 1729 DD/ 1515 TD/TT: Brush Fabrication Supervisor: GISELLE Assessment & Plan Assessment & Plan (1) History of uterine fibroid: Code(s): Z86.018 - Personal history of other benign neoplasm (2) Well woman exam with routine gynecological exam: Code(s): Z01.419 - Encounter for gynecological examination (general) (routine) without abnormal findings (3) Cervical cancer screening: Comment: neg pap w neg hpv in 2020, no hx of abnls as far as she knows; Code(s): Z12.4 - Encounter for screening for malignant neoplasm of cervix Plan -----Discussed in this visit the following: healthy balanced diet, regular and consistent exercise, getting recommended health screens, doing the best she can for her particular health concerns, kegel exercises, pap smear screening and followup recommendations, mammography screening and SBE, normal changes in cycles in her life stage--- . Testing done for gonorrhea chlamydia trichomoniasis Gardnerella and Yoli discussed the common findings of Gardnerella and Yoli in vaginal donna and the there is no need for treatment unless symptoms are consistent with bacterial vaginosis or yeast. Discussed the limitations of testing. Offered testing for STIs in blood work but she does not feel she has a need at this time. If she became sexually active in the future she would use condoms. Discussed future mammogram screenings discussed the normal regimen for screening for Pap smears in her age group discussed simin menopausal changes to expect. Since she has curious about her fibroids and was interested in finding out if that was responsible for her heavier closer periods for a while, I offered a pelvic ultrasound to assess them and we would have a follow-up visit afterwards. If she decides not to have the ultrasound, for cost or any other reason, that would be fine and she could just cancel it and it would be fine. I do not feel there is a particular urgency at this time based on her exam and menstrual history I did discuss with her reasons why it would be important to definitely do an ultrasound for instance if she had a very irregular bleeding pattern or pain or other issues going on. I have ordered the ultrasound in if she cancels she may cancel an follow-up visit would go way as well. Discussed some of the upcoming symptoms of simin menopausal changes and how to manage them. RTC 1 year. Orders: Orders CT NG by PCR Today Z20.2 - Contact with and (suspected) exposure to infections with a predominantly sexual mode of transmission US pelvic and transvaginal Today Z86.018 - Personal history of other benign neoplasm Bacterial Vaginosis Panel Today Z20.2 - Contact with and (suspected) exposure to infections with a predominantly sexual mode of transmission Coding Level of Care Code Est Pt Prev Care 40-64y(81363) Diagnoses History of uterine fibroid Z86.018 Well woman exam with routine gynecological exam Z01.419 Cervical cancer screening Z12.4
[2023-02-22 15:00] VITALS: BP 120/76; BMI 37.3
== END 2023-02-22 16:04 | disposition home or self-care (01) ==
PROVIDERS: PCP Hospitalist; Visit Provider Advanced Practice Midwife
DX: Z01.419 Encounter for gynecological examination (general) (routine) without abnormal findings (principal); Z86.018 Personal history of other benign neoplasm
CPT/HCPCS: 99396

== ENCOUNTER 2023-02-22 14:55 | Outpatient (REF) | payer OTHER, SELFPAY ==
[2023-02-23 02:04] LABS: CT PCR NOT DETECTED (Not Detect.); NG PCR NOT DETECTED (Not Detect.)
[2023-02-23 12:08] LABS: BV Int Neg Control Negative (Negative); BV Int Pos Control Positive (Positive)
== END 2023-02-22 14:56 | disposition home or self-care (01) ==
LOC: HO.LNP 14:55
PROVIDERS: PCP Hospitalist; Visit Provider Advanced Practice Midwife
DX: Z01.419 Encounter for gynecological examination (general) (routine) without abnormal findings (principal); Z20.2 Contact with and (suspected) exposure to infections with a predominantly sexual mode of transmission
CPT/HCPCS: 0353U; 87480; 87510; 87660

== ENCOUNTER 2023-06-19 10:37 | Outpatient (REF) | payer OTHER, SELFPAY | END 2023-06-19 10:38 | disposition home or self-care (01) | LOC: HO.MAMMO 10:37 | PROVIDERS: PCP Nurse Practitioner Family; Visit Provider Hospitalist | DX: Z12.31 Encounter for screening mammogram for malignant neoplasm of breast (principal) | CPT/HCPCS: 77063; 77067 ==

== ENCOUNTER → 2023-06-19 10:45 | Outpatient (BNV) | payer OTHER, SELFPAY | PROVIDERS: PCP Nurse Practitioner Family; Visit Provider Radiology Diagnostic Radiology | DX: Z12.31 Encounter for screening mammogram for malignant neoplasm of breast (principal) | CPT/HCPCS: 77063; 77067 ==

== ENCOUNTER 2023-10-04 14:03 | Outpatient (REF) | payer OTHER, SELFPAY ==
--- NOTE | ~2023-10-04 | US_ITS ---
EXAMINATION: US PELVIS CLINICAL INFORMATION: Personal history of neoplasm. COMPARISON: None available. TECHNIQUE: Ultrasound of the pelvis is performed using both transabdominal and transvaginal transducers along with Doppler. Transvaginal imaging is performed due to inadequate visualization transabdominally. FINDINGS: Uterus: The uterus is anteverted and retroflexed measuring 9.0 x 4.7 x 6.3 cm. The double wall endometrial thickness is 13 mm. The uterus is smooth in contour and has normal myometrial echogenicity. 3 mural fibroids are noted ranging in size from 1.5 cm up to 3.4 cm. Adnexa: Both ovaries are visualized. There is normal color flow to the adnexa. There is no ovarian torsion. There is no pelvic ascites or fluid collection. Right ovary measures 3.0 x 1.6 x 2.2 cm for a volume of 5.0 mL. Left ovary measures 3.4 x 2.7 x 2.8 cm for a volume of 13.5 mL which includes a cyst measuring 2.3 cm. US/US pelvic and transvaginal IMPRESSION: 1. Uterine fibroids. 2. A 2.3 cm left ovarian cyst. No follow-up is necessary.
== END 2023-10-04 14:04 | disposition home or self-care (01) ==
LOC: HO.US 14:03
PROVIDERS: PCP Nurse Practitioner Family; Visit Provider Advanced Practice Midwife
DX: Z86.018 Personal history of other benign neoplasm (principal)
CPT/HCPCS: 76830; 76856

== ENCOUNTER 2023-10-06 10:53 | Outpatient (AMB) | payer OTHER, SELFPAY ==
--- NOTE | 2023-10-06 10:57 | A.OFFPC_ITS ---
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 Is last menstrual period known: Yes Last menstrual period: 08/26/23 Post menopausal: No Patient : No Allergies Sulfa (Sulfonamide Antibiotics) Allergy (Mild, Verified 10/06/23 11:46) Rash Medication List - Last Reconciled 10/06/23 by Sabrina Perez, OUTBOARD MOTOR MECHANIC- levothyroxine 200 mcg (2 x 100 mcg) PO DAILY Tobacco use date assessed: 10/06/23 Dental Screening Dental Screen Date: 10/06/23 Did you have a dental visit in the last 12 months?: Yes Did you have a dental problem in the last 6 months where you did not have access to dental care?: No Was dental information given to patient?: Patient has dentist HPI HPI Comments History of Present Illness Details 43-year-old female with former tobacco u ser, uterine fibroid, elevated liver enzymes, impaired fasting glucose, hypothyroidism, obesity. 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 related to 12/07 exposure), Mom with DM, MGM with DM, older brother - alive and well. No children. Health Maintenance: ? Colon NA ? Mammo 06/19/2023 ? DEXA NA ? PAP 07/17/2020 ? Tdap 04/13/2012 will get done today. Specialists: [facility] Here today to est care & for a CPE. Records reviewed before visit today. Hypothyroid, due for repeat labs. Taking levothyroxine as directed. Denies sx. Quit smoking, 1/2 PPD x 20 years. Bumps on back and neck which required US imaging in the past, one of the bumps is gone now but other one is still there. It is more annoying than anything. The sizes waxes and wanes. Has not had this looked at by Derm yet. Is interested. Intentional wt loss, exercising. Having irregular periods, hx of uterine fibroids, TV US done last week, results pending. 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 Routine eye exam - wears contacts ALATNA s/p MARYLOU, would like hearing exam. Plan Refer to dermatology an audiology. Repeat labs in 6 months. Continue levothyroxine. Refill sent today. Labs done today and reviewed. Labs from today show a normal CBC, normal CMP, hemoglobin A1c 5.3%, normal iron profile, total cholesterol 182, LDL 110, HDL 56, triglycerides 80, vitamin-D 23.7, TSH 1.08, normal urine microalbumin creatinine ratio Return to office in 6 months for routine follow up of hypothyroidism & Vit D def, sooner as needed [facility] Medical History (Updated 10/06/23 @ 15:21 by Sabrina Perez, [facility]) Elevated liver enzymes Elevated glucose level Impacted cerumen of both ears Surgical History No pertinent past surgical history Family History (Updated 02/22/23 @ 15:06 by VAIBHAV Morrison) Father No problems noted. Mother No problems noted. 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 1. Little interest or pleasure in doing things: not at all 2. Feeling down, depressed, or hopeless: several days 3. Trouble falling or staying asleep, or sleeping too much: several days 4. Feeling tired or having little energy: several days 5. Poor appetite or overeating: several days 6. Feeling bad about yourself - or that you are a failure or have let yourself or your family down: several days 7. Trouble concentrating on things, such as reading the newspaper or watching television: several days 8. Moving or speaking so slowly that other people could have noticed. Or the opposite - being so fidgety or restless that you have been moving around a lot more than usual: not at all 9. Thoughts that you would be better off or of hurting yourself in some way: not at all Total score: 6 Depression Screening Interpretation: Negative Depression Screening Done: Yes 60271 - PHQ-9 Billing: Yes Source: Developed by Drs. Shreyas Balderas, Cherise Wright, Eric Pacheco and colleagues, with an educational prasad from [employer]. Thrive Questionnaire Date Thrive assessed: 10/06/23 I am a: Patient What is your living situation today?: I have a steady place to live Within the past 12 months, did the food you bought not last and you didn't have the money to get more?: Never true Within the past 12 months, did you worry whether your food would run out before you got money to buy more?: Never true Do you have trouble paying for medicines?: No Do you have trouble getting transportation to medical appointments?: No Do you have trouble paying your heating and electricity bill?: No Do you have trouble taking care of your child, family member or friend?: No Do you have trouble with day-to-day activities such as bathing, preparing meals, shopping, managing finances, etc.?: No Are you currently unemployed and looking for a job?: No Are you interested in more education?: No Please select the resources that you would like help with: None Currently or been in a relationship where the following occur: No concerns reported THRIVE Score: 0 AUDIT C Alcohol Use Questionnaire (AUDIT-C) 1. How often do you have a drink containing alcohol?: Monthly or less 2. How many drinks containing alcohol do you have on a typical day when you are drinking?: 1 or 2 3. How often do you have six or more drinks on one occasion?: Never Total Score: 1 Score Reviewed/Action Taken: Yes MEKHI-7 AMB Questionnaire MEKHI-7 Date MEKHI - 7 assessed: 10/06/23 Feeling nervous, anxious, or on edge: 1 = Several days Not being able to stop or control worryin = Several days Worrying too much about different things: 1 = Several days Trouble relaxin = Several days Being so restless that it is hard to sit still: 0 = Not at all Becoming easily annoyed or irritable: 0 = Not at all Feeling afraid as if something awful might happen: 0 = Not at all Total MEKHI-7 score (0-4 normal; 5-9 mild; 10-14 moderate; 15-21 severe): 4 Source: Developed by Drs. Shreyas Balderas, Cherise Wright, Eric Pacheco and colleagues, with an educational prasad from [employer]. MEKHI-7 Assessment Billing MEKHI-7 Assessment Tool: MEKHI-7 Assessment 06248 Review of Systems Const Details: Constitutional: Denies fever. Skin: Denies rash. Eye: Denies eye pain. ENMT: Denies sore throat and nasal congestion. Respiratory: Denies shortness of breath and cough. Gastrointestinal: Denies nausea, vomiting or abdominal pain. Cardiovascular: Denies chest pain and syncope. Genitourinary: Denies dysuria. Musculoskeletal: Denies back pain and extremity pain. Neurologic: Denies headaches, confusion, and weakness. Psychiatric: Denies suicidal thoughts and substance abuse. Allergy/ Immunologic: Denies impaired immunity. Physical exam (Primary Care) Vital Signs: Last Vital Signs Temp 97.7 F 10/06/23 11:00 Pulse 63 10/06/23 11:00 Resp 16 10/06/23 11:00 BP 112/70 10/06/23 11:00 Pulse Ox 96 10/06/23 11:00 Oxygen Delivery Method Room Air 10/06/23 11:00 BMI result Body Mass Index 35.3 BMI Assessment/Plan discussion: High BMI High, discussed plan: lifestyle Tobacco/Smoking Status: Tobacco use Status Tobacco use date assessed 10/06/23 10/06/23 11:07 Patient Tobacco Use Status Former Tobacco user (she 10/06/23 11:07 quit) e-Cigarette/Vaping Use Never Used 10/06/23 10:59 PHQ-9: PHQ-9 Score PHQ-9: Total score 6 10/06/23 14:55 Depression Screening Interpretation: Negative Thrive Assessment: Date of Thrive Assessment Date Thrive assessed 10/06/23 10/06/23 11:12 Currently or been in a relationship where the following occur: No concerns reported Const Other: General: Well developed, well nourished, in no acute distress. Appears stated age. Head: Normocephalic, atraumatic. Eyes: Pupils are equal, round and reactive to light and accommodation. Conjunctivae are clear. Vision grossly normal. Ears: TMs clear AU, EACS WNL Nose: Patent, without discharge. Mouth: There are no ulcers or lesions noted. No inflammation, no post nasal drip, no plaques nor exudates. Neck: Supple, no adenopathy or thyromegaly. Lungs: Clear to auscultation bilaterally. No rales, rhonchi or wheeze noted. Good air flow in all colon. Heart: Regular rate and rhythm. No murmurs, click, rubs or gallops are noted. Abdomen: Bowel sounds present in all quadrants. The abdomen is soft, nontender, with no masses or organomegaly noted. No hernias are noted. Musculoskeletal: Joints are nontender, without swelling, redness, or effusions. Range of motion is observed to be normal. Pulses: Peripheral pulses are equal and palpable bilaterally. Extremities: No clubbing, cyanosis nor edema is noted. Neurologic: Gait and station normal. Cranial Nerves 2-12 intact. Motor strength grossly symmetrical and intact. No sensory loss. Balance normal. Skin: No rashes, ulcers noted. Turgor is good. Skin color is good. Hair and nails are without abnormalities. Nape of neck is a marble size cyst Psych: Normal eye contact, affect and mood appropriate, and normal interactions. Patient is alert and appropriate to context. Immunizations Boostrix Tdap 2.5 Lf unit-8 mcg-5 Lf/0.5 mL intramuscular syringe Performing Provider: RAMON Fenton Performing Location: [facility] Administered by: Yandy Presley RN on 10/06/23 12:29 Dose Route Admin Location Dispensed Lot Number Expiration Date NDC Risk Management Analyst 0.5 mL IM Left Deltoid 0.5 mL [id number] 11/04/25 [id number] Lulu VIS Given Date VIS Provided VIS Publication Date 10/06/23 Single Vaccine 20 Eligibility Eligibility Date Funding Source Not VFC Eligible 10/06/23 Private Assessment and Plan Assessment & Plan (1) Encounter for general adult medical examination without abnormal findings: Code(s): Z00.00 - Encounter for general adult medical examination without abnormal findings (2) Hypothyroidism (acquired): Code(s): E03.9 - Hypothyroidism, unspecified (3) Elevated liver enzymes: Comment: resolved based on labs today. Code(s): R74.8 - Abnormal levels of other serum enzymes (4) Elevated glucose level: Comment: resolved based on labs today Code(s): R73.09 - Other abnormal glucose (5) Skin cyst: Code(s): L72.9 - Follicular cyst of the skin and subcutaneous tissue, unspecified (6) Hearing loss: Code(s): H91.90 - Unspecified hearing loss, unspecified ear Qualifiers: Hearing loss type: unspecified Laterality: bilateral Qualified Code(s): H91.93 - Unspecified hearing loss, bilateral (7) Obesity (BMI 35.0-39.9 without comorbidity): Code(s): E66.9 - Obesity, unspecified (8) Vitamin D deficiency: Code(s): E55.9 - Vitamin D deficiency, unspecified Orders: Orders Comprehensive [place]. Panel Fast Today E03.9 - Hypothyroidism, unspecified, R73.09 - Other abnormal glucose, R74.8 - Abnormal levels of other serum enzymes, Z00.00 - Encounter for general adult medical examination without abnormal findings Complete Blood Count no Diff Today E03.9 - Hypothyroidism, unspecified, R73.09 - Other abnormal glucose, R74.8 - Abnormal levels of other serum enzymes, Z00.00 - Encounter for general adult medical examination without abnormal findings IRON PROFILE Today E03.9 - Hypothyroidism, unspecified, R73.09 - Other abnormal glucose, R74.8 - Abnormal levels of other serum enzymes, Z00.00 - Encounter for general adult medical examination without abnormal findings Lipid Panel Today E03.9 - Hypothyroidism, unspecified, R73.09 - Other abnormal glucose, R74.8 - Abnormal levels of other serum enzymes, Z00.00 - Encounter for general adult medical examination without abnormal findings TSH reflex Free T4 Today E03.9 - Hypothyroidism, unspecified, R73.09 - Other abnormal glucose, R74.8 - Abnormal levels of other serum enzymes, Z00.00 - Encounter for general adult medical examination without abnormal findings Vitamin D 25-OH Total 03/29/24 E03.9 - Hypothyroidism, unspecified, E55.9 - Vitamin D deficiency, unspecified TSH reflex Free T4 03/29/24 E03.9 - Hypothyroidism, unspecified, E55.9 - Vitamin D deficiency, unspecified Hemoglobin A1c Today E03.9 - Hypothyroidism, unspecified, R73.09 - Other abnormal glucose, R74.8 - Abnormal levels of other serum enzymes, Z00.00 - Encounter for general adult medical examination without abnormal findings Microalbumin, Random (w Creat) Today E03.9 - Hypothyroidism, unspecified, R73.09 - Other abnormal glucose, R74.8 - Abnormal levels of other serum enzymes, Z00.00 - Encounter for general adult medical examination without abnormal fin dings Vitamin B12 and Folate Today E03.9 - Hypothyroidism, unspecified, R73.09 - Other abnormal glucose, R74.8 - Abnormal levels of other serum enzymes, Z00.00 - Encounter for general adult medical examination without abnormal findings Vitamin D 25-OH Total Today E03.9 - Hypothyroidism, unspecified, R73.09 - Other abnormal glucose, R74.8 - Abnormal levels of other serum enzymes, Z00.00 - Encounter for general adult medical examination without abnormal findings TDaP Immunization Today Z23 - Encounter for immunization Referrals Dermatology Referral L72.9 - Follicular cyst of the skin and subcutaneous tissue, unspecified Audiology Referral H91.90 - Unspecified hearing loss, unspecified ear Medications: New cholecalciferol (vitamin D3) 50 mcg PO DAILY 90 caps 1RF Changed From levothyroxine 200 mcg (2 x 100 mcg) PO DAILY 180 tabs 1RF E03.9 - Hypothyroidism, unspecified To levothyroxine 200 mcg (2 x 100 mcg) PO DAILY 90 days 180 tabs 1RF E03.9 - Hypothyroidism, unspecified Patient Instructions: Health screenings for women You should visit your health care provider from time to time, even if you are healthy. The purpose of these visits is to: Screen for medical issues Assess your risk for future medical problems Encourage a healthy lifestyle Update vaccinations and other preventive care services Help you get to know your provider in case of an illness Information Even if you feel fine, you should still see your provider for regular checkups. These visits can help you avoid problems in the future. For example, the only way to find out if you have high blood pressure is to have it checked regularly. High blood sugar and high cholesterol levels also may not have any symptoms in the early stages. A simple blood test can check for these conditions. There are specific times when you should see your provider or receive specific health screenings. The [place] Preventive Services Task Force publishes a list of recommended screenings. Below are screening guidelines for women ages 18 to 39. BLOOD PRESSURE SCREENING Your blood pressure should be checked at least once every 3 to 5 years if: Your blood pressure is in the normal range (top number less than 120 mm Hg and bottom number less than 80 mm Hg) You don't have risk factors for high blood pressure Ask your provider if you need your blood pressure checked more often if: The top number is 120 to 129 mm Hg or the bottom number is 70 to 79 mm Hg You have diabetes, heart disease, kidney problems, are overweight, or have certain other health conditions You have a first-degree relative with high blood pressure You are Black You had high blood pressure during a If the top number is 130 mm Hg or greater or the bottom number is 80 mm Hg or greater, this is considered stage 1 hypertension. Schedule an appointment with your provider to learn how you can reduce your blood pressure. Watch for blood pressure screenings in your area. Ask your provider if you can stop in to have your blood pressure checked. BREAST CANCER SCREENING Experts do not agree about the benefits of breast self-exams in finding breast cancer or saving lives. Talk to your provider about what is best for you. A screening mammogram is not recommended for most women under age 40. Your provider may discuss and recommend mammograms, MRI scans, or ultrasounds if you have an increased risk for breast cancer, such as: A mother or sister who had breast cancer at a young age (most often starting screening earlier than the age the close relative was diagnosed) You carry a high-risk genetic marker CERVICAL CANCER SCREENING Cervical cancer screening should start at age 21 years unless your provider advises otherwise. After the first test: Women ages 21 through 29 should have a Pap test every 3 years. Exoprts do not agree on whether HPV testing is recommended for this age group. Women ages 30 through 65 should be screened with either a Pap test every 3 years or the HPV test every 5 years or both tests every 5 years (called cotesting ). Women who have been treated for precancer (cervical dysplasia) should continue to have Pap tests for 20 years after treatment or until age 65, whichever is longer. If you have had your uterus and cervix removed (total hysterectomy), and you have not been diagnosed with cervical cancer or precancer (high grade cervical neoplasia), you do not need cervical cancer screening. CHOLESTEROL SCREENING Cholesterol screening should begin at: Age 45 for women with no known risk factors for coronary heart disease Age 20 for women with known risk factors for coronary heart disease Repeat cholesterol screening should take place: Every 5 years for women with normal cholesterol levels More often if changes occur in lifestyle (including weight gain and diet) More often if you have diabetes, heart disease, kidney problems, or certain other conditions DIABETES SCREENING You should be screened for diabetes starting at age 35 and then repeated every 3 years if you have no risk factors for diabetes. Screening may need to start earlier and be repeated more often if you have other risk factors for diabetes, such as: You have a first degree relative with diabetes. You are overweight or have obesity. You have high blood pressure, prediabetes, or a history of heart disease. Screening for diabetes should be done if you are planning to become and you are overweight and have other risk factors such as high blood pressure. DENTAL EXAM Go to the dentist once or twice every year for an exam and cleaning. Your dentist will evaluate if you need more frequent visits. EYE EXAM Have an eye exam every 5 to 10 years before age 40. If you have vision problems, have an eye exam every 2 years or more often if recommended by your provider. You should have an eye exam that includes an examination of your retina (back of your eye) at least every year if you have diabetes. IMMUNIZATIONS Commonly needed vaccines include: Flu shot: get one every year. COVID-19 vaccine: ask your provider what is best for you. Tetanus-diphtheria and acellular pertussis (Tdap) vaccine: have one at or after age 19 as one of your tetanus-diphtheria vaccines if you did not receive it as an adolescent. Tetanus-diphtheria: have a booster (or Tdap) every 10 years. Varicella vaccine: receive 2 doses if you never had chickenpox or the varicella vaccine. Hepatitis B vaccine: receive 2, 3, or 4 doses, depending on your exact circumstances. Measles, mumps, and rubella (MMR) vaccine: receive 1 to 2 doses if you are not already immune to MMR. Your provider can tell you if you are immune. Ask your provider about the human papillomavirus (HPV) vaccine if: You have not received the HPV vaccine in the past You have not completed the full vaccine series (you should catch up on this shot) Ask your provider if you should receive other immunizations if you have certain health problems that increase your risk for some diseases such as pneumonia. INFECTIOUS DISEASE SCREENING Women who are sexually active should be screened for chlamydia and gonorrhea up until age 25. Women 25 years and older should be screened for chlamydia and gonorrhea if at high risk. Screening for hepatitis C: All adults ages 18 to 79 should get a one-time test for hepatitis C. people should be screened at every . Screening for human immunodeficiency virus (HIV): All people ages 15 to 65 should get a one-time test for HIV. Depending on your lifestyle and medical history, you may also need to be screened for infections such as syphilis and HIV, as well as other infections. PHYSICAL EXAM All adults should visit their provider from time to time, even if they are healthy. The purpose of these visits is to: Screen for disease Assess your risk of future medical problems Encourage a healthy lifestyle Update your vaccinations and other preventive care services Maintain a relationship with a provider in case of an illness Your height, weight, and BMI should be checked at every exam. During your exam, your provider may ask you about: Depression and anxiety Diet and exercise Alcohol and tobacco use Safety issues, such as using seat belts, smoke detectors, and intimate partner violence Your medicines and risk for interactions SKIN SELF-EXAM Your provider may check your skin for signs of skin cancer, especially if you're at high risk, such as if you: Have had skin cancer before Have close relatives with skin cancer Have a weakened immune system OTHER SCREENING Talk with your provider about colon cancer screening if you have a strong family history of colon cancer or polyps, or if you have had inflammatory bowel disease or polyps yourself. Routine bone density screening of women under 40 is not recommended. Walk-In Care (Urgent Care): We Make it Easy Walk-in for urgent medical issues such as: ? Seasonal Allergies ? Insect Bites ? Cough ? Diarrhea ? Acute Asthma Attacks ? Back, Knee or Joint Pain ? Ear Infection ? Fever without a Rash ? Headaches ? Nausea ? [place] Eye, Rash or Skin Irritation ? Sore Throat ? Sports Physicals ? Vomiting Most insurances are accepted. Patients do not need to be part of the [facility] to seek care at the walk-in clinic. Locations [address] [facility] , [place] [address] ? [phone] [facility] Walk-In Care in [place] provides services to ages 18 and over. Open Wednesday-Wednesday: 8 a.m. to 5 p.m. and Wednesday: 9 a.m. to 3 p.m.* *Hours may vary due to staffing availability. To confirm Walk-In Care hours in [place], please call [phone]. [address] [place] [address] ? [phone] [facility] Walk-In Care in [place] provides services to ages 12 and over. Open Wednesday-Wednesday: 8 a.m. to 5 p.m. Hours may vary due to staffing availability. To confirm Walk-In Care hours in [place], please call [phone]. LABORATORY SERVICES: [facility] Lab ? Primary Location [address] [place] [address] Wednesday through Wednesday 6:00 AM ? 5:00 PM Wednesday 7:00 AM ? 11:00 AM* [phone] The [facility] Lab is centrally located near the front entrance of the [facility] for easy outpatient access. Convenient parking is provided for outpatients. *Hours may vary due to staffing availability. To confirm Laboratory hours for any location, please call [phone]. Offsite Location For your convenience, we offer offsite laboratory draw stations at the following locations: [address] [place] [address] ? [address], [address] Wednesday through Wednesday 7:30 AM ? 1:00 PM* [phone] *Hours may vary due to staffing availability. To confirm Laboratory hours for any location, please call [phone]. [place] ? [address] Wednesday through Wednesday 6:00 AM ? 3:30 PM* Wednesday 6:30 AM ? 3 PM* [phone] *Hours may vary due to staffing availability. To confirm Laboratory hours for any location, please call [phone]. [address] [facility] Wednesday through Wednesday 7:30 AM ? 4:00 PM* [phone] *Hours may vary due to staffing availability. To confirm Laboratory hours for any location, please call [phone]. [address] Wednesday through 9:00 AM ? 4:00 PM* *Hours may vary due to staffing availability. To confirm Laboratory hours for any location, please call [phone]. Appointments are not necessary. Walk-ins are welcome. Like all the departments throughout the [facility], our Lab undergoes frequent reviews to ensure the quality and accuracy of test results, and our staff takes special pride in its status as a nationally accredited facility. Patient Portal: ONE PATIENT. ONE RECORD. BETTER CARE. [facility] has a fully integrated, cutting- edge mobile electronic health information system that has revolutionized the way we care for our patients and manage our organization. This system improves communication and coordination enabling us to provide safe, higher-quality care, and an overall positive experience for staff and patients. Our first priority, as always, is to deliver the highest quality care possible. The system is running in the background supporting that priority. This portal is for all [facility] services and practices. If you are experiencing any technical difficulties with enrolling or logging into the Patient Portal please complete the [facility] Patient Portal Technical Support Form. [facility] now offers a new secure on-line interactive tool for patients to review their health information ? Patient Portal. This interactive web portal will enable patients and their families to take an active role in their care by providing easy, secure access to their health information via the internet. The Patient Portal provides patients with instant access to their health information, including laboratory results, medications, allergies, demographic information, visit history, and more. In addition to managing their own care, parents and health care proxies with authorized consent will appreciate the ability to access the records of those individuals for whom they provide care. Please note: if you wish to gain access (Proxy) to another patient?s portal, you will be required to come to the Medical Records Department in person at [facility]. Both the patient giving proxy access and the proxy will need to provide photo identification and complete the appropriate authorization. The Patient Portal also allows track their appointments online. The [facility] Patient Portal also saves patients time by allowing them to submit updates to their demographic and contact information prior to their visits. Portal email notifications will also alert patients to any new activity on their portal, such as test results and new appointments. In order to initially enroll in the [facility] Patient Portal, you will need to enter some required information including the following: ? your [facility] Medical Record number ? your personal home email address ? name ? date of Please note: In order to enroll in the [facility] Patient Portal, we need to have your email address on file in your electronic medical record. The email address needs to be specific for one person (yourself) in order for your Portal enrollment to be successful. You can update your email address in person with our Registration staff when you are registering for a hospital visit. Otherwise, you will need to come to the Health Information Management (Medical Records) Department at [facility]. We are open from Wednesday ? Wednesday from 7:30 a.m. ? 4:30 p.m. You will be required to present a photo id. Once you have successfully enrolled in the Patient Portal, you will receive a one-time user id and password for the Portal, sent to your email address. This will allow you to log into the Patient Portal within 99 hrs and reset your own logon id and password, and define personal security questions. Once your permanent login and password have been set, you can log into the [facility] Patient Portal at any time via the blue button above or from the Portal Logon button on any page of the [facility] website. [facility] and [facility] encourage all of our patients to enroll in Patient Portal as it presents a valuable opportunity for patients and their families to actively participate in their care and stay healthy Welcome to [facility]. We look forward to working with you. Coding Level of Care Code Est Pt Prev Care 40-64y(18964) Diagnoses Encounter for general adult medical examination without abnormal findings Z00.00 Hypothyroidism (acquired) E03.9 Elevated liver enzymes R74.8 Elevated glucose level R73.09 Skin cyst L72.9 Bilateral hearing loss, unspecified hearing loss type H91.93 Hearing loss type: unspecified Laterality: bilateral Obesity (BMI 35.0-39.9 without comorbidity) E66.9 Vitamin D deficiency E55.9 Additional Codes MEKHI-7 Assessment Billing - MEKHI-7 Assessment Tool: MEKHI-7 Assessment 09384 ([id number])
[2023-10-06 11:00] VITALS: BP 112/70; PULSE 63; RESP 16; TEMP 36.5; O2SAT 96; BMI 35.3
== END 2023-10-06 12:18 | disposition home or self-care (01) ==
PROVIDERS: PCP Nurse Practitioner Family; Visit Provider Nurse Practitioner Family
DX: Z00.00 Encounter for general adult medical examination without abnormal findings (principal); E03.9 Hypothyroidism, unspecified; R74.8 Abnormal levels of other serum enzymes; Z23 Encounter for immunization; R73.09 Other abnormal glucose; L72.9 Follicular cyst of the skin and subcutaneous tissue, unspecified; H91.93 Unspecified hearing loss, bilateral; E66.9 Obesity, unspecified; E55.9 Vitamin D deficiency, unspecified
CPT/HCPCS: 90471; 90715; 99396

== ENCOUNTER 2023-10-06 12:31 | Outpatient (REF) | payer OTHER, SELFPAY ==
[2023-10-06 14:17] LABS: Hematocrit 39.1 % (37.0-47.0); Hemoglobin 13.3 g/dl (12.0-16.0); Mean Corpuscular Hemoglobin 31.5 pg (27.0-33.0); Mean Corpuscular Volume 92.7 fL (80.0-98.0); PLT CLUMP 1; Red Blood Count 4.22 X10*6/uL (4.20-5.50); Red Cell Distribution Width 12.7 % (11.0-16.0)
[2023-10-06 14:18] LABS: White Blood Count 9.1 X10*3/uL (4.8-10.8)
[2023-10-06 14:34] LABS: Estimated Average Glucose 105 mg/dL; Hemoglobin A1c % 5.3 % (<6.0)
[2023-10-06 14:37] LABS: Mean Platelet Volume 13.4 fL (9.4-12.3); Platelet Count 187 X10*3/uL (160-400)
[2023-10-06 14:57] LABS: Creatinine Urine 65.91 mg/dL; Microalbum/Creatinine Ratio Ur 18.2 ug/mg cr (<30)
[2023-10-06 15:06] LABS: Alanine Aminotransferase 22 U/L (0-31); Albumin Level 4.2 g/dL (3.5-5.0); Alkaline Phosphatase 68 U/L (39-117); Anion Gap 11 (12-20); Aspartate Amino Transferase 22 U/L (5-31); Bilirubin Total 0.6 mg/dL (0.0-1.0); Blood Urea Nitrogen 11 mg/dL (9-16); Calcium 9.1 mg/dL (8.4-10.2); Carbon Dioxide 25 mmol/L (22-29); Chloride 108 mmol/L (96-108); Cholesterol 182 mg/dL (<200); Estimated Glomerular Filt Rate > 60; Glucose Fasting 75 mg/dL (60-99); HDL Cholesterol 56 mg/dL (>40); Iron 130 mcg/dL (30-160); LDL Cholesterol Calculated 110 mg/dL (<100); Percent Iron Saturation 48 % (15-50); Potassium 3.8 mmol/L (3.3-5.1); Sodium 140 mmol/L (135-145); Total Iron Binding Capacity 273 mcg/dL (228-428); Total Protein 6.8 g/dL (6.5-8.0); Triglycerides 80 mg/dL (<150); Unsaturated Iron Binding 143 ug/dL
[2023-10-06 15:10] LABS: TSH reflex Free T4 1.08 uIU/mL (0.32-4.0); Vitamin D 25-OH Total 23.7 ng/mL (>30)
[2023-10-06 15:25] LABS: Vitamin B12 320 pg/mL (200-900)
== END 2023-10-06 12:32 | disposition home or self-care (01) ==
LOC: HO.WFDLDS 12:31
PROVIDERS: Visit Provider Nurse Practitioner Family
DX: Z00.00 Encounter for general adult medical examination without abnormal findings (principal); E03.9 Hypothyroidism, unspecified; R73.09 Other abnormal glucose; R74.8 Abnormal levels of other serum enzymes
CPT/HCPCS: 36415; 80053; 80061; 82043; 82306; 82570; 82607; 82746; 83036; 83540; 84443; 85027

== ENCOUNTER 2023-11-01 13:51 | Outpatient (AMB) | payer OTHER, SELFPAY ==
--- NOTE | 2023-11-01 13:51 | A.OFFVIS_ITS ---
Intake Visit Reasons: TV Follow up US Allergies Sulfa (Sulfonamide Antibiotics) Allergy (Mild, Verified 11/01/23 13:52) Rash Medication List - Last Reconciled 11/01/23 by Yandy Babcock CNM cholecalciferol (vitamin D3) 50 mcg PO DAILY levothyroxine 200 mcg (2 x 100 mcg) PO DAILY 90 days Is last menstrual period known: Yes (10/18/23) HPI HPI TV Follow up US: Details: This is a tele visit to review patient's ultrasound that was ordered after a 02/15/2023 visit to follow-up on a history of fibroids. It was done this past September. She reports that she is not sexually active she was sexually active with her last partner in the used the pull out method. In the past she was on hormonal control pills combination pills most likely and she did not like how they made her feel so was not a good trade off for the contraception for her. Her periods are very very heavy and crampy and lately they started to come more like every 3 to 3 and half weeks so they are coming closer which is annoying as well. She says that she takes ibuprofen to do with the cramps and she sometimes takes up to 12 mg ibuprofen in 1 does. She typically does not repeat the dose during the day but she does know that is a lot. In her problem list there was a note of previous elevated LFTs but she can not remember from when that was and discussion took place in this visit as well as review past LFTs as far back as 2020 to see if there were it it LFTs and discussed possible negative effects of increased doses of nonsteroidal anti-in flammatories on her GI system as well liver functions and other organ systems. I reviewed the ultrasound in detail which shows 3 fibroids ranging from 1-1/2-3.4 cm and and these can be blamed for her heavier periods those difficult to say for sure. Discussed options for dealing with this is she so chose and she is aware that it is trade off between side effects and affect the desire. Discussed that it is probably not vu to take that much ibuprofen in 1 dose she always eats ahead of taking it. Discussed the options available to her at this point that would be less invasive which include progestin only OCPs and I discussed the rationale why we would not start combination OCPs at this stage of her life. And that those might be a less invasive way to see if the progestin would have any effect on the dysmenorrhea and the amount of her periods. If it had some ameliorating effect but she wanted to increase the effect could then progressed to a Mirena IU S or she could try that from the start. Either 1 would best be started at beginning of the menses and explained why. If neither had any ameliorating effect on her heavy crampy periods, and she wished to discuss surgical options in having a visit with ink jet operator would be in order and explained again that I am not a ink jet operator and do not do surgery. She does not have another appointment scheduled. If we do not see her before then her next appointment would be January for her account solutions analyst annual exam and if she decided in several months to try either 1 of these options that I discussed then she should call and at least have a tele visit to discuss them if she decides soon it could be sooner and she would need to call the minute she gets a period in order to schedule the Mirena insertion both should be initiated within the 1s t 2 days of her menses. [facility] Medical History Elevated liver enzymes Elevated glucose level Impacted cerumen of both ears Surgical History No pertinent past surgical history Family History Father No problems noted. Mother No problems noted. 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 Current occupational exposures/hazards: No Gender identity: Female Cognitive needs: No Hearing needs: No Vision needs: No Female Reproductive History Menstrual Age of Menarche: 12 Date of last pap smear: 07/17/20 (neg.) Telehealth Telehealth Telehealth Platform: Telephone Location of provider rendering services: practice address Location of patient: address on file Patient Identification confirmed using: Name, : Yes Telehealth method: voice only Patient verbally consented to treatment: Yes Patient verbally consented to billing insurance company: Yes Patient informed of any privacy concerns related to visit: Yes Minutes spent on Phone/Video with Pt.: 21 Results Reviewed Results Reviewed: Patient: Lalita Brown MR#: [id number] : 1980 Acct:[id number] Age/Sex: 43 / F ADM Date: 10/04/23 Loc: HO.US Attending Dr: Yandy Babcock CNM Ordering Physician: Yandy Babcock CNM Date of Service: 10/04/23 Procedure(s): US pelvic and transvaginal Accession Number(s): [id number] cc: Yandy Babcock CNM; Lakia Duncan INFRASTRUCTURE CONSULTANT~ EXAMINATION: US PELVIS CLINICAL INFORMATION: Personal history of neoplasm. COMPARISON: None available. TECHNIQUE: Ultrasound of the pelvis is performed using both transabdominal and transvaginal transducers along with Doppler. Transvaginal imaging is performed due to inadequate visualization transabdominally. FINDINGS: Uterus: The uterus is anteverted and retroflexed measuring 9.0 x 4.7 x 6.3 cm. The double wall endometrial thickness is 13 mm. The uterus is smooth in contour and has normal myometrial echogenicity. 3 mural fibroids are noted ranging in size from 1.5 cm up to 3.4 cm. Adnexa: Both ovaries are visualized. There is normal color flow to the adnexa. There is no ovarian torsion. There is no pelvic ascites or fluid collection. Right ovary measures 3.0 x 1.6 x 2.2 cm for a volume of 5.0 mL. Left ovary measures 3.4 x 2.7 x 2.8 cm for a volume of 13.5 mL which includes a cyst measuring 2.3 cm. US/US pelvic and transvaginal IMPRESSION: 1. Uterine fibroids. 2. A 2.3 cm left ovarian cyst. No follow-up is necessary. Dictated By: Austin Patel MD Signed By: <Electronically signed by Austin Patel MD in OV> 10/25/23 3362 DD/ 9155 TD/TT: Perinatal Instructor: FELICITY Assessment & Plan Assessment & Plan (1) Cervical cancer screening: Comment: neg pap w neg hpv in 2020, no hx of abnls as far as she knows; Code(s): Z12.4 - Encounter for screening for malignant neoplasm of cervix Category: Medical (2) History of uterine fibroid: Code(s): Z86.018 - Personal history of other benign neoplasm Category: Medical (3) Personal history of dysmenorrhea: Code(s): Z87.42 - Personal history of other diseases of the female genital tract Category: Medical (4) control counseling: Code(s): Z30.09 - Encounter for other general counseling and advice on contraception Category: Medical Plan This is a tele visit to review patient's ultrasound that was ordered after a 02/15/2023 visit to follow-up on a history of fibroids. It was done this past September. She reports that she is not sexually active she was sexually active with her last partner in the used the pull out method. In the past she was on hormonal control pills combination pills most likely and she did not like how they made her feel so was not a good trade off for the contraception for her. Her periods are very very heavy and crampy and lately they started to come more like every 3 to 3 and half weeks so they are coming closer which is annoying as well. She says that she takes ibuprofen to do with the cramps and she sometimes takes up to 12 mg ibuprofen in 1 does. She typically does not repeat the dose during the day but she does know that is a lot. In her problem list there was a note of previous elevated LFTs but she can not remember from when that was and discussion took place in this visit as well as review past LFTs as far back as 2020 to see if there were it it LFTs and discussed possible negative effects of increased doses of nonsteroidal anti-inflammatories on her GI system as well liver functions and other organ systems. I reviewed the ultrasound in detail which shows 3 fibroids ranging from 1-1/2-3.4 cm and and these can be blamed for her heavier periods those difficult to say for sure. Discussed options for dealing with this is she so chose and she is aware that it is trade off between side effects and affect the desire. Discussed that it is probably not vu to take that much ibuprofen in 1 dose she always eats ahead of taking it. Discussed the options available to her at this point that would be less invasive which include progestin only OCPs and I discussed the rationale why we would not start combination OCPs at this stage of her life. And that those might be a less invasive way to see if the progestin would have any effect on the dysmenorrhea and the amount of her periods. If it had some ameliorating effect but she wanted to increase the effect could then progressed to a Mirena IU S or she could try that from the start. Either 1 would best be started at beginning of the menses and explained why. If neither had any ameliorating effect on her heavy crampy periods, and she wished to discuss surgical options in having a v isit with ink jet operator would be in order and explained again that I am not a ink jet operator and do not do surgery. She does not have another appointment scheduled. If we do not see her before then her next appointment would be January for her account solutions analyst annual exam and if she decided in several months to try either 1 of these options that I discussed then she should call and at least have a tele visit to discuss them if she decides soon it could be sooner and she would need to call the minute she gets a period in order to schedule the Mirena insertion both should be initiated within the 1st 2 days of her menses. Coding Level of Care Code Tele Est Pt Level 3 (46037) Diagnoses Cervical cancer screening Z12.4 History of uterine fibroid Z86.018 Personal history of dysmenorrhea Z87.42 control counseling Z30.09 Time Spent (min) 40 Comment 5 cr/21 speaking w pt/14 charting
== END 2023-11-01 14:41 | disposition home or self-care (01) ==
LOC: HO.HWSM 13:51
PROVIDERS: PCP Nurse Practitioner Family; Visit Provider Advanced Practice Midwife
DX: Z30.09 Encounter for other general counseling and advice on contraception (principal); Z86.018 Personal history of other benign neoplasm; Z87.42 Personal history of other diseases of the female genital tract
CPT/HCPCS: 99213

== ENCOUNTER → 2023-11-01 13:51 | Outpatient (BNVA) | payer OTHER, SELFPAY | PROVIDERS: PCP Nurse Practitioner Family; Visit Provider Advanced Practice Midwife ==

== ENCOUNTER 2024-02-07 11:27 | Outpatient (AMB) | payer OTHER, SELFPAY ==
--- NOTE | 2024-02-07 11:28 | MHC.PC.OV ---
Vital Signs 02/07/24 11:30 Height 5 ft 5 in Weight 202 lb BMI 33.6 BP 111/67 Blood Pressure Location Lt brachial Position Sitting Respiration 13 Pulse 67 Pulse Source Pulse Oximeter Pulse Oximetry (%) 97 Oxygen Delivery Method Room Air Intake Visit Reasons: back pain Intake Note: Patient complaining of back pain with abd pain x 2 weeks Washer Assembler Required: No Allergies Sulfa (Sulfonamide Antibiotics) Allergy (Mild, Verified 02/07/24 11:30) Rash Tobacco use date assessed: 10/06/23 Dental Screening Dental Screen Date: 10/06/23 HPI HPI Comments History of Present Illness Details 44-year-old female with former tobacco user, uterine fibroid, elevated liver enzymes, impaired fasting glucose, hypothyroidism, obesity, family hx of breast ca, Vit D def, 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 related to 12/07 exposure), Mom with DM, MGM with DM, older brother - alive and well. No children. Health Maintenance: ? Colon NA ? Mammo 06/19/2023 ? DEXA NA ? PAP 07/17/2020 ? Tdap 10/06/23 Specialists: Technical Sales Advisor Orthopedics Derm Audio Here today for c/o back pain, low back, left side that started 3-4 weeks ago. Worse w/ standing. Better w/ laying down, heat and walking. has been doing wt lifting/barbell class, pain started before this but is worse . Has been taking it easy over the last few days and admits the pain is better than it has been. is also having digestive problems, described as cramping and sometimes constipation. Unsure if this is related or not. Has had constipation in the past. Reports normal urination, no hematuria, no fever, chills, nausea, vomiting. Thinks maybe this has happened before & resolved w/o intervention. Denies red flag assoc w/ back pain. Exam Awake alert oriented, no acute distress Neck full range of motion Abdomen is soft, normoactive bowel sounds, no peritoneal signs, does have some mild tenderness with deep palpation of transverse low abdomen without rebound No spinal tenderness with palpation, mild tenderness to paraspinal left low back, no CVAT bilat, SLR + bilat causing pain in L low back, moves all extremities x4, normal strength, tone, reflexes, neurovascularly intact Plan The plan will be to check a urine to rule out urinary cause. We will check a KUB given the new complaints of constipation. We will also check spinal films to include SI involvement as she does have pain paraspinal in the on the left lower back. Patient will be called later with the results as well as the treatment plan. Called w/ results at 1634 UA negative. Xrays show mod constipation and mild lumbar spondylosis at L5-S1. Advised to use Miralax OTC, cont to use until constipation is resolved. Supportive care for her back; APAP NTE 3gm/24 hours, topical treatments such as lidocaine patches, tiger balm, etc can sometimes be helpful.. Offered and declined mgmt referral @ this time Asked she contact me if her pain does not improve or worsens. This note is constructed using voice recognition software. While every effort has been made to ensure accuracy in collection development librarian, still errors may have been included Sometimes, these errors may affect the content or meaning of the given sentence . Total time spent caring for the patient today was 30 minutes. This includes time spent before the visit reviewing the chart, time spent during the visit, and time spent after the visit on documentation [facility] Medical History Elevated liver enzymes Elevated glucose level Impacted cerumen of both ears Surgical History No pertinent past surgical history Family History Father No problems noted. Mother No problems noted. 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 Shreyas Balderas, Cherise Wright, Eric Pacheco and colleagues, with an educational prasad from [employer]. Physical exam (Primary Care) Vital Signs: Last Vital Signs Pulse 67 02/07/24 11:30 Resp 13 02/07/24 11:30 BP 111/67 02/07/24 11:30 Pulse Ox 97 02/07/24 11:30 Oxygen Delivery Method Room Air 02/07/24 11:30 BMI result Body Mass Index 33.6 Tobacco/Smoking Status: Tobacco use Status Tobacco use date assessed 10/06/23 02/07/24 11:32 Patient Tobacco Use Status Former Tobacco user (she 02/07/24 11:32 quit) e-Cigarette/Vaping Use Never Used 02/07/24 11:32 Thrive Assessment: Date of Thrive Assessment Date Thrive assessed 10/06/23 02/07/24 11:32 Results Reviewed Results Reviewed: [facility] [address] [place] [address] [place] [address] XRay Report Signed Patient: Lalita Brown MR#: [id number] : 1980 Acct:[id number] Age/Sex: 44 / F ADM Date: 02/07/24 Loc: HO.HMGCX Attending Dr: Sabrina ACEVEDO Ordering Physician: Sabrina Perez Date of Service: 02/07/24 Procedure(s): XR KUB Accession Number(s): [id number] cc: Sabrina Perez~ EXAMINATION: XR ABDOMEN KUB CLINICAL INDICATION: Abdominal pain. COMPARISON: None available. TECHNIQUE: AP view of the abdomen. FINDINGS: Nonobstructive bowel gas pattern. Moderate degree of colonic stool burden. No acute osseous findings. Included portions of the lung bases are clear. XR/XR KUB IMPRESSION: Nonobstructive bowel gas pattern. Moderate colonic stool burden. Electronically signed by: Tanesha Vang MD 02/07/2024 03:45 PM [facility] Dictated By: Tanesha Vang Signed By: <Electronically signed by Tanesha Vang in OV> 02/07/24 1545 DD/ 1220 TD/TT: 02/07/24 1234 Health Data Administrator: [facility] [address] [place] [address] [place] [address] XRay Report Signed Patient: Lalita Brown MR#: [id number] : 1980 Acct:[id number] Age/Sex: 44 / F ADM Date: 02/07/24 Loc: HO.HMGCX Attending Dr: Sabrina ACEVEDO Ordering Physician: Sabrina Perez Date of Service: 02/07/24 Procedure(s): XR sacroiliac joint 1-2V Accession Number(s): [id number] cc: Sabrina Perez~ EXAMINATION: XR SACROILIAC JOINTS CLINICAL INFORMATION: Lower back pain. COMPARISON: None available. TECHNIQUE: 3 views of the sacroiliac joints FINDINGS: Bones and soft tissues are normal. No fracture. Alignment is anatomic. Sacroiliac joint spaces are well-maintained without erosions or surrounding sclerosis. XR/XR sacroiliac joint 1-2V IMPRESSION: Normal sacroiliac joints. Electronically signed by: Tanesha Vang MD 02/07/2024 03:51 PM [facility] Dictated By: Tanesha Vang Signed By: <Electronically signed by Tanesha Vang in OV> 02/07/24 1551 DD/ 1220 TD/TT: 02/07/24 1234 Health Data Administrator: [facility] [address] [place] [address] [place] [address] XRay Report Signed Patient: Lalita Brown MR#: [id number] : 1980 Acct:[id number] Age/Sex: 44 / F ADM Date: 02/07/24 Loc: HORioHMGCX Attending Dr: Sabrina ACEVEDO Ordering Physician: Sabrina Perez Date of Service: 02/07/24 Procedure(s): XR lumbar spine 4V min Accession Number(s): [id number] cc: Sabrina Perez~ RADIOGRAPH LUMBAR SPINE CLINICAL HISTORY: Lower back pain. COMPARISON: No relevant prior studies are available for comparison. TECHNIQUE: 5 views of the lumbar spine including bilateral oblique views. FINDINGS: No evidence of acute compression deformity or subluxation. Mild intervertebral disc height loss and facet arthropathy at L5-S1 with suggestion of neuroforaminal encroachment. Small multilevel anterior marginal osteophytes. No significant paraspinal soft tissue abnormality. XR/XR lumbar spine 4V min IMPRESSION: 1. No acute compression deformity or subluxation. 2. Mild lumbar spondylosis at L5-S1. Electronically signed by: Tanesha Vang MD 02/07/2024 03:53 PM EST Dictated By: Tanesha Vang Signed By: <Electronically signed by Tanesha Vang in OV> 02/07/24 1553 DD/ 1220 TD/TT: 02/07/24 1234 Health Data Administrator: Coding Level of Care Code Est Pt Level 4 (32177) Complex EM visit Add On G2211 Diagnoses Acute left-sided low back pain without sciatica M54.50 Chronicity: acute Sciatica presence: without sciatica Abdominal cramping R10.9 Constipation K59.00 Lumbar spondylolysis M43.06 Assessment & Plan Assessment & Plan (1) Left low back pain: Code(s): M54.50 - Low back pain, unspecified Category: Medical Qualifiers: Chronicity: acute Sciatica presence: without sciatica Qualified Code(s): M54.50 - Low back pain, unspecified Plan: . (2) Abdominal cramping: Code(s): R10.9 - Unspecified abdominal pain Category: Medical Plan: . (3) Constipation: Code(s): K59.00 - Constipation, unspecified Category: Medical (4) Lumbar spondylolysis: Comment: mild lumbar spondylosis at L5-S1. Code(s): M43.06 - Spondylolysis, lumbar region Category: Medical Plan . Orders: Orders XR sacroiliac joint 1-2V Today M54.50 - Low back pain, unspecified, R10.9 - Unspecified abdominal pain UA CC w/rflx Micro + Cult Today M54.50 - Low back pain, unspecified, R10.9 - Unspecified abdominal pain XR KUB Today M54.50 - Low back pain, unspecified, R10.9 - Unspecified abdominal pain
[2024-02-07 11:30] VITALS: BP 111/67; PULSE 67; RESP 13; O2SAT 97; BMI 33.6
== END 2024-02-07 11:46 | disposition home or self-care (01) ==
LOC: HO.HMCFM 11:27
PROVIDERS: PCP Nurse Practitioner Family; Visit Provider Nurse Practitioner Family
DX: M54.50 Low back pain, unspecified (principal); R10.9 Unspecified abdominal pain; K59.00 Constipation, unspecified; M43.06 Spondylolysis, lumbar region

== ENCOUNTER 2024-02-07 11:27 | Outpatient (REF) | payer OTHER, SELFPAY ==
--- NOTE | ~2024-02-07 | XR_ITS ---
EXAMINATION: XR SACROILIAC JOINTS CLINICAL INFORMATION: Lower back pain. COMPARISON: None available. TECHNIQUE: 3 views of the sacroiliac joints FINDINGS: Bones and soft tissues are normal. No fracture. Alignment is anatomic. Sacroiliac joint spaces are well-maintained without erosions or surrounding sclerosis. XR/XR sacroiliac joint 1-2V IMPRESSION: Normal sacroiliac joints. Electronically signed by: Tanesha Vang MD 02/07/2024 03:51 PM [facility]
--- NOTE | ~2024-02-07 | XR_ITS ---
RADIOGRAPH LUMBAR SPINE CLINICAL HISTORY: Lower back pain. COMPARISON: No relevant prior studies are available for comparison. TECHNIQUE: 5 views of the lumbar spine including bilateral oblique views. FINDINGS: No evidence of acute compression deformity or subluxation. Mild intervertebral disc height loss and facet arthropathy at L5-S1 with suggestion of neuroforaminal encroachment. Small multilevel anterior marginal osteophytes. No significant paraspinal soft tissue abnormality. XR/XR lumbar spine 4V min IMPRESSION: 1. No acute compression deformity or subluxation. 2. Mild lumbar spondylosis at L5-S1. Electronically signed by: Tanesha Vang MD 02/07/2024 03:53 PM [facility]
--- NOTE | ~2024-02-07 | XR_ITS ---
EXAMINATION: XR ABDOMEN KUB CLINICAL INDICATION: Abdominal pain. COMPARISON: None available. TECHNIQUE: AP view of the abdomen. FINDINGS: Nonobstructive bowel gas pattern. Moderate degree of colonic stool burden. No acute osseous findings. Included portions of the lung bases are clear. XR/XR KUB IMPRESSION: Nonobstructive bowel gas pattern. Moderate colonic stool burden. Electronically signed by: Tanesha Vang MD 02/07/2024 03:45 PM [facility]
[2024-02-07 15:59] LABS: Appearance Urine Clear; Color Urine Yellow; Glucose Urine UA Negative (Negative); Leukocyte Esterase Urine Negative (Negative); Nitrite Urine Negative (Negative); Urine Blood Negative (Negative); Urine Ketones Negative (Negative); Urine Protein Negative (Neg-Trace)
== END 2024-02-07 11:28 | disposition home or self-care (01) ==
LOC: HO.HMGCX 11:27
PROVIDERS: PCP Nurse Practitioner Family; Visit Provider Nurse Practitioner Family
DX: R10.9 Unspecified abdominal pain (principal); M54.50 Low back pain, unspecified
CPT/HCPCS: 72110; 72200; 74018; 81003

== ENCOUNTER 2024-04-05 15:01 | Outpatient (AMB) | payer OTHER, SELFPAY ==
--- NOTE | 2024-04-05 16:23 | MHC.PC.OV ---
Intake Visit Reasons: Lumps Concern Allergies Sulfa (Sulfonamide Antibiotics) Allergy (Mild, Verified 04/05/24 16:33) Rash Medication List - Last Reconciled 04/05/24 by Sabrina Perez [facility]- cholecalciferol (vitamin D3) 50 mcg PO DAILY levothyroxine 200 mcg (2 x 100 mcg) PO DAILY 90 days Tobacco use date assessed: 04/05/24 Dental Screening Dental Screen Date: 04/05/24 Did you have a dental visit in the last 12 months?: Yes Did you have a dental problem in the last 6 months where you did not have access to dental care?: No Was dental information given to patient?: Patient has dentist HPI HPI Comments History of Present Illness Details 44-year-old female with former tobacco user, uterine fibroid, elevated liver enzymes, impaired fasting glucose, hypothyroidism, obesity, family hx of breast ca, Vit D def, 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 related to 12/07 exposure), Mom with DM, MGM with DM, older brother - alive and well. No children. Health Maintenance: ?Colon NA ?Mammo 06/19/2023 ?DEXA NA ?PAP 07/17/2020 ?Tdap 10/06/23 Specialists: Contact Assembler Orthopedics Derm Audio The patient is a 44-year-old female presenting with concerns of a palpable breast lump and accompanying skin changes on the left breast. She first noticed the lump approximately a few days ago, accompanied by localized pain. The patient describes the lump as being positioned in the left breast, challenging to pinpoint due to breast size, but approximately at the 3 o'clock position on a clock face visualization. She reports that the lump feels more elongated rather than circular. Moreover, the patient observed skin changes slightly above the area of the lump, noting initially some form of maria de jesus or abnormality which has since largely resolved, although mild skin alterations persist. There is no history of trauma or recent injury to the area. The patient denies any fever, chills, or drainage from the nipples. She recalls undergoing a mammogram in May, which showed no abnormalities at that time. The patient admits to some apprehension regarding health-related issues and expresses concern about the findings. Review of Systems - Breast: Reports palpable lump on left breast, denies nipple discharge. - Skin: Reports skin changes above the lump on the left breast, denies associated insect bite. - Constitutional: Denies fever or chills. Exam Tearful when talking about her sx and anxiety See breast diagram below for details Plan - Proceed with an urgent diagnostic mammo and ultrasound of the left breast to assess the characteristics of the palpable lump. - If needed, follow up imaging such as a diagnostic mammogram or biopsy may be required based on the initial ultrasound findings. - Compare any new imaging results with the previous mammogram conducted in May for consistency and comprehensive evaluation. Patient was informed and verbally consented to the use of an ambient scribe for clinic note documentation during this visit. Discussion Notes I discussed with the patient the presence of a palpable breast lump and the need for further imaging to elucidate the nature of the mass, including an urgent diagnostic ultrasound. We also mentioned the potential need for subsequent diagnostic procedures such as a mammogram or biopsy if warranted by ultrasound findings. I advised the patient to refrain from excessive palpation of the affected area to prevent skewing the imaging results. Reassurance was provided regarding the patient's nervousness, and she was cautioned against searching for information online, which could lead to increased anxiety without any medical basis. It was explained that diagnostic evaluations would be expedited and that providing follow-up based on test results would be our priority. The importance of away from non-urgent internet searches and focusing on scheduled evaluations was emphasized. Patient Instructions - Arrange for a diagnostic imaging of your left breast as soon as possible by [facility]. The order has been sent. - Avoid excessive touching or palpation of the affected area to prevent irritation or inflammation. - Be mindful of any new changes in the breast or skin and report them. - Stay calm and trust the medical process, avoiding unnecessary internet searches. - Follow up with me if you have any questions or concerns before or after the imaging. This note is constructed using voice recognition software. While every effort has been made to ensure accuracy in cleaning specialist, still errors may have been included Sometimes, these errors may affect the content or meaning of the given sentence . Total time spent caring for the patient today was 20 minutes. This includes time spent before the visit reviewing the chart, time spent during the visit, and time spent after the visit on documentation [facility] Medical History Elevated liver enzymes Elevated glucose level Impacted cerumen of both ears Surgical History No pertinent past surgical history Family History Father No problems noted. Mother No problems noted. 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 Shreyas Balderas, Cherise Wright, Eric Pacheco and colleagues, with an educational prasad from [employer]. Physical exam (Primary Care) Tobacco/Smoking Status: Tobacco use Status Tobacco use date assessed 10/06/23 02/07/24 11:32 Patient Tobacco Use Status Former Tobacco user 02/07/24 11:32 e-Cigarette/Vaping Use Never Used 02/07/24 11:32 Thrive Assessment: Date of Thrive Assessment Date Thrive assessed 10/06/23 02/07/24 11:32 Chest Chest/axillae images: 1. flat erythematous skin change 2. patient points to oblonged palpable lump here Nipple intact, no drainage Telehealth Telehealth Telehealth Platform: [facility] Location of provider rendering services: practice address Location of patient: address on file Patient Identification confirmed using: Name, : Yes Telehealth method: video Patient verbally consented to treatment: Yes Patient verbally consented to billing insurance company: Yes Patient informed of any privacy concerns related to visit: Yes Minutes spent on Phone/Video with Pt.: 11 Coding Level of Care Code Tele Est Pt Level 3 (94425) Complex EM visit Add On G2211 Diagnoses Mass of upper outer quadrant of left breast N63.21 Breast mass location: upper outer quadrant Breast skin changes R23.4 Assessment & Plan Assessment & Plan (1) Left breast lump: Code(s): N63.20 - Unspecified lump in the left breast, unspecified quadrant Category: Medical Qualifiers: Breast mass location: upper outer quadrant Qualified Code(s): N63.21 - Unspecified lump in the left breast, upper outer quadrant (2) Breast skin changes: Code(s): R23.4 - Changes in skin texture Category: Medical Plan . Orders: Orders MM diagnostic mammo unilat LT Today N63.20 - Unspecified lump in the left breast, unspecified quadrant, R23.4 - Changes in skin texture US breast LT complete Today N63.20 - Unspecified lump in the left breast, unspecified quadrant, R23.4 - Changes in skin texture
== END 2024-04-05 16:37 | disposition home or self-care (01) ==
LOC: HO.HMCFM 15:01
PROVIDERS: PCP Nurse Practitioner Family; Visit Provider Nurse Practitioner Family
DX: N63.21 Unspecified lump in the left breast, upper outer quadrant (principal); R23.4 Changes in skin texture

== ENCOUNTER → 2024-04-05 15:01 | Outpatient (BNVA) | payer OTHER, SELFPAY | PROVIDERS: PCP Nurse Practitioner Family; Visit Provider Nurse Practitioner Family ==

== ENCOUNTER 2024-04-11 10:03 | Outpatient (REF) | payer OTHER, SELFPAY ==
--- NOTE | ~2024-04-11 | MM_ITS ---
EXAMINATION: MM DIAGNOSTIC DIGITAL BREAST TOMOSYNTHESIS, BILATERAL Limited left breast ultrasound. CLINICAL INFORMATION: Patient has red skin change and a left palpable breast lump in the 3:00 area. COMPARISON: Mammography: Comparison is made with relevant prior exams. TECHNIQUE: Digital breast mammography with tomosynthesis is performed in both the craniocaudal and mediolateral oblique views along with computer-aided detection (CAD). Limited left breast ultrasound. FINDINGS: There are scattered areas of fibroglandular density (ACR BI-RADS breast composition Category b). Right: There are no significant masses, abnormal calcifications, or other abnormalities. Left: BB marker in the upper outer breast without underlying abnormality. Targeted color Doppler ultrasound scanning in the area of palpable lump and small skin redness/change demonstrates normal fibroglandular breast tissue scanning from 1-3 o'clock. At 2:00 10 cm from the nipple there is a tiny hypoechoic intradermal area measuring approximately 3 x 1 mm this area could represent a sebaceous cyst flap epidermal inclusion cyst which is benign. Results are provided to the patient at time of visit by the technologist. MM/MM tomosynthesis diagnostic BI IMPRESSION: Right: Negative. Left: No mammographic or sonographic abnormality to account for the patient's palpable lump in the left breast. Possible 3 mm intradermal epidermal inclusion cyst/sebaceous cysts. Benign. Recommend breast surgical consultation at this time for skin irritation and redness and changes and left breast palpable lump without mammographic or sonographic findings. A breast MR could be considered for further evaluation if clinically indicated. MRI needs to be ordered by the patient's providing clinician. ASSESSMENT: BI-RADS BI-RADS 2 - Benign Findings RECOMMENDATION: 1 year F/U This patient's information was entered into a reminder system with a target due date for their next mammogram. Electronically signed by: Rowan Mireles DO 04/11/2024 11:56 AM [facility]
== END 2024-04-11 10:04 | disposition home or self-care (01) ==
LOC: HO.MAMMO 10:03
PROVIDERS: PCP Nurse Practitioner Family; Visit Provider Nurse Practitioner Family
DX: N63.21 Unspecified lump in the left breast, upper outer quadrant (principal); R23.4 Changes in skin texture
CPT/HCPCS: 76642; 77062; 77066

== ENCOUNTER → 2024-04-11 10:15 | Outpatient (BNV) | payer OTHER, SELFPAY | PROVIDERS: PCP Nurse Practitioner Family; Visit Provider Internal Medicine | DX: N63.25 Unspecified lump in the left breast, overlapping quadrants (principal); R23.4 Changes in skin texture | CPT/HCPCS: 76642; 77062; 77066 ==

== ENCOUNTER 2024-04-17 13:57 | Outpatient (AMB) | payer OTHER, SELFPAY ==
--- NOTE | 2024-04-17 13:57 | A.OFFPC_ITS ---
Vital Signs 04/17/24 14:00 Height 5 ft 5 in Weight 200 lb BMI 33.3 BP 136/78 Blood Pressure Location Lt brachial Position Sitting Respiration 14 Pulse 68 Pulse Source Pulse Oximeter Temp 97.8 F Temp Source Oral Pulse Oximetry (%) 98 Oxygen Delivery Method Room Air Intake Visit Reasons: 6 months fu Hypothyroid Intake Note: 6 months follow up Adult Daycare Coordinator Required: No Allergies Sulfa (Sulfonamide Antibiotics) Allergy (Mild, Verified 04/17/24 13:58) Rash Medication List - Last Reconciled 04/17/24 by Sabrina Perez, [facility]- cholecalciferol (vitamin D3) 50 mcg PO DAILY levothyroxine 200 mcg (2 x 100 mcg) PO DAILY 90 days Tobacco use date assessed: 04/05/24 Dental Screening Dental Screen Date: 04/05/24 HPI HPI Comments History of Present Illness Details 44-year-old female with former tobacco u ser, uterine fibroid, elevated liver enzymes, impaired fasting glucose, hypothyroidism, obesity, family hx of breast ca, Vit D def, 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 related to 12/07 exposure), Mom with DM, MGM with DM, older brother - alive and well. No children. Health Maintenance: ? Colon NA ? Mammo 06/19/2023 ? DEXA NA ? PAP 07/17/2020 ? Tdap 10/06/23 Flu Specialists: [facility] History of Present Illness The patient is a 44-year-old female presenting with a routine follow-up for hypothyroidism. She reports adherence to her prescribed thyroid medication and daily Vitamin D supplementation, with improved symptoms. Constipation well controlled @ current time. Low back feels good right now. Doing core exercises. She has experienced a recent musculoskeletal issue, describing a sensation on the outside of her right foot that feels like a rubber band being pulled. This condition has been more noticeable over the past couple of weeks, especially during exercise, and is alleviated by stretching. There are no new injuries, although she recently acquired new boots. The patient also mentions weight management challenges, noting a static weight within the same 5-pound range for the last two months despite active efforts including strength training and cardio exercises. The patient's medical history includes anxiety, which flared with concerns about a perceived breast lump. A referral for a breast surgeon consultation is pending due to an insurance referral requirement. There is a noted skin discoloration in the breast area with no recent changes in its appearance. She reports past struggles with depressive symptoms, particularly during winter months, but manages successfully without current significant issues. Social History - Regular exercise includes cardio four to six days a week and strength training. - Conscious about diet, tracking intake and implementing periodic caloric deficits. - Received flu and COVID vaccinations. - Multivitamin supplement intake. - Engages in physical activities like ki ckboxing. Physical Exam General: Awake, alert. No apparent distress Eyes: Sclera and conjunctiva clear bilaterally Throat: Moist mucosa membrane, pharynx within normal limits Neck: thyroid nontender Cardiovascular: Regular rate and rhythm Respiratory: Clear to auscultation bilaterally, breaths normal MSK: R foot neurovasc intact, unable to replicate the pain that she has, points to the lateral aspect of her foot and into the right side of her heel. The skin is intact. Plan - Maintain current management of hypothy roidism; review lab results to adjust medication if necessary. - Monitor right foot for worsening sympt oms; patient advised to continue stretching and apply warmth post-exercise. - Follow-up on breast surgeon referral; ensure insurance approval and subsequent scheduling. - Encourage continued physical activity and dietary monitoring for weight management. - Advise on strategies for managing anxi ety, including the continuation of current interventions. - Encourage hydration and use of zinc fo r throat itchiness. Patient was informed and verbally consented to the use of an ambient scribe for clinic note documentation during this visit. Discussion Notes I discussed with the patient the ongoing management of her hypothyroidism, emphasizing the importance of continuing her current medication and reviewing la b results to ensure optimal dosage. We talked about her right foot discomfort and agreed on continued monitoring and specific non-pharmacological strategies to alleviate symptoms, such as stretching and warming the area. I reassured her about the breast referral process and advised her to keep track of any changes. We also addressed her weight concerns, acknowledging her physical activity improvements and the significance of strength training in body composition changes. Lastly, we talked about her anxiety management and ways to mitigate winter-associated mood fluctuations. Patient Instructions - Continue taking thyroid medication as prescribed. - Perform stretches and apply warmth to the right foot after exercise. - Monitor any changes in the foot and sk in discoloration and update me if symptoms worsen. - Stay vigilant for communication from [place] breast surgeon's office; contact my office if there are delays. - Follow a balanced diet and exercise re gime, focusing on strength training and proper hydration. - Add zinc supplements for throat drynes s, as needed. - Schedule next wellness visit after Sep, sooner PRN refills will be sent after review of labs, as appropriate. Total time spent caring for the patient today was 45 minutes. This includes time spent before the visit reviewing the chart, time spent during the visit, and time spent after the visit on documentation, reviewing laboratory results, diagnostic imaging, medications, performing a medically necessary evaluation, counseling on diagnoses, care coordination, ordering appropriate tests, ordering appropriate medications, review of tests performed by other providers, reporting test results with the patient, communication with other healthcare providers. [facility], [facility] Medical History Elevated liver enzymes Elevated glucose level Impacted cerumen of both ears Surgical History No pertinent past surgical history Family History Father No problems noted. Mother No problems noted. 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 1. Little interest or pleasure in doing things: not at all 2. Feeling down, depressed, or hopeless: several days 3. Trouble falling or staying asleep, or sleeping too much: not at all 4. Feeling tired or having little energy: not at all 5. Poor appetite or overeating: not at all 6. Feeling bad about yourself - or that you are a failure or have let yourself or your family down: not at all 7. Trouble concentrating on things, such as reading the newspaper or watching television: not at all 8. Moving or speaking so slowly that other people could have noticed. Or the opposite - being so fidgety or restless that you have been moving around a lot more than usual: not at all 9. Thoughts that you would be better off or of hurting yourself in some way: not at all Total score: 1 Depression Screening Interpretation: Negative Depression Screening Done: Yes 16155 - PHQ-9 Billing: Yes Source: Developed by Drs. Shreyas Balderas, Cherise Wright, Eric Pacheco and colleagues, with an educational prasad from [employer]. Thrive Questionnaire Date Thrive assessed: 04/17/24 I am a: Patient What is your living situation today?: I have a steady place to live Within the past 12 months, did the food you bought not last and you didn't have the money to get more?: Never true Within the past 12 months, did you worry whether your food would run out before you got money to buy more?: Never true Do you have trouble paying for medicines?: No Do you have trouble getting transportation to medical appointments?: No Do you have trouble paying your heating and electricity bill?: No Do you have trouble taking care of your child, family member or friend?: No Do you have trouble with day-to-day activities such as bathing, preparing meals, shopping, managing finances, etc.?: No Are you currently unemployed and looking for a job?: No Are you interested in more education?: No Currently or been in a relationship where the following occur: I choose not to answer THRIVE Score: 0 AUDIT C Alcohol Use Questionnaire (AUDIT-C) 1. How often do you have a drink containing alcohol?: 2-4 times a month 2. How many drinks containing alcohol do you have on a typical day when you are drinking?: 1 or 2 3. How often do you have six or more drinks on one occasion?: Never Total Score: 2 Score Reviewed/Action Taken: Yes MEKHI-7 AMB Questionnaire MEKHI-7 Date MEKHI - 7 assessed: 04/17/24 Feeling nervous, anxious, or on edge: 2 = More than half the days Not being able to stop or control worryin = Not at all Worrying too much about different things: 1 = Several days Trouble relaxin = Several days Being so restless that it is hard to sit still: 0 = Not at all Becoming easily annoyed or irritable: 0 = Not at all Feeling afraid as if something awful might happen: 0 = Not at all Total MEKHI-7 score (0-4 normal; 5-9 mild; 10-14 moderate; 15-21 severe): 4 Source: Developed by Drs. Shreyas Balderas, Cherise Wright, Eric Pacheco and colleagues, with an educational prasad from [employer]. MEKHI-7 Assessment Billing MEKHI-7 Assessment Tool: MEKHI-7 Assessment 14906 Physical exam (Primary Care) Vital Signs: Last Vital Signs Temp 97.8 F 04/17/24 14:00 Pulse 68 04/17/24 14:00 Resp 14 04/17/24 14:00 BP 136/78 04/17/24 14:00 Pulse Ox 98 04/17/24 14:00 Oxygen Delivery Method Room Air 04/17/24 14:00 BMI result Body Mass Index 33.3 BMI Assessment/Plan discussion: High BMI High, discussed plan: lifestyle Tobacco/Smoking Status: Tobacco use Status Tobacco use date assessed 04/05/24 04/17/24 14:00 Patient Tobacco Use Status Former Tobacco user (she 04/17/24 14:00 quit) e-Cigarette/Vaping Use Never Used 04/17/24 14:00 PHQ-9: PHQ-9 Score PHQ-9: Total score 1 04/17/24 14:28 Depression Screening Interpretation: Negative Thrive Assessment: Date of Thrive Assessment Date Thrive assessed 04/17/24 04/17/24 14:00 Currently or been in a relationship where the following occur: I choose not to answer Coding Level of Care Code Est Pt Level 5 (27291) Complex EM visit Add On G2211 Diagnoses Vitamin D deficiency E55.9 Hypothyroidism (acquired) E03.9 Skin cyst L72.9 Slow transit constipation K59.01 Constipation type: slow transit constipation BMI 33.0-33.9,adult Z68.33 Class 1 obesity due to excess calories without serious comorbidity with body mass index (BMI) of 33.0 to 33.9 in adult E66.811; E66.09; Z68.33 Obesity type: due to excess calories Serious obesity comorbidity presence: without serious comorbidity Mass of upper outer quadrant of left breast N63.21 Breast mass location: upper outer quadrant Lumbar spondylolysis M43.06 Right foot pain M79.671 Additional Codes MEKHI-7 Assessment Billing - MEKHI-7 Assessment Tool: MEKHI-7 Assessment 34177 ([id number]) PHQ-9 - 11009 - PHQ-9 Billing: Yes ([id number]) Assessment & Plan Assessment & Plan (1) Vitamin D deficiency: Code(s): E55.9 - Vitamin D deficiency, unspecified Category: Medical (2) Hypothyroidism (acquired): Code(s): E03.9 - Hypothyroidism, unspecified Category: Medical (3) Skin cyst: Comment: L breast Code(s): L72.9 - Follicular cyst of the skin and subcutaneous tissue, unspecified Category: Medical (4) Constipation: Code(s): K59.00 - Constipation, unspecified Category: Medical Qualifiers: Constipation type: slow transit constipation Qualified Code(s): K59.01 - Slow transit constipation (5) BMI 33.0-33.9,adult: Code(s): Z68.33 - Body mass index [BMI] 33.0-33.9, adult Category: Medical (6) Class 1 obesity with body mass index (BMI) of 33.0 to 33.9 in adult: Code(s): E66.811 - Obesity, class 1; Z68.33 - Body mass index [BMI] 33.0-33.9, adult Category: Medical Qualifiers: Obesity type: due to excess calories Serious obesity comorbidity presence: without serious comorbidity Qualified Code(s): E66.811 - Obesity, class 1; E66.09 - Other obesity due to excess calories; Z68.33 - Body mass index [BMI] 33.0-33.9, adult (7) Left breast lump: Code(s): N63.20 - Unspecified lump in the left breast, unspecified quadrant Category: Medical Qualifiers: Breast mass location: upper outer quadrant Qualified Code(s): N63.21 - Unspecified lump in the left breast, upper outer quadrant (8) Lumbar spondylolysis: Comment: mild lumbar spondylosis at L5-S1. Code(s): M43.06 - Spondylolysis, lumbar region Category: Medical (9) Right foot pain: Code(s): M79.671 - Pain in right foot Category: Medical Plan .
[2024-04-17 14:00] VITALS: BP 136/78; PULSE 68; RESP 14; TEMP 36.6; O2SAT 98; BMI 33.3
== END 2024-04-17 14:29 | disposition home or self-care (01) ==
LOC: HO.HMCFM 13:57
PROVIDERS: PCP Nurse Practitioner Family; Visit Provider Nurse Practitioner Family
DX: E03.9 Hypothyroidism, unspecified (principal); E55.9 Vitamin D deficiency, unspecified; L72.9 Follicular cyst of the skin and subcutaneous tissue, unspecified; K59.01 Slow transit constipation; Z68.33 Body mass index [BMI] 33.0-33.9, adult; E66.811 Obesity, class 1; N63.21 Unspecified lump in the left breast, upper outer quadrant; M43.06 Spondylolysis, lumbar region; M79.671 Pain in right foot

== ENCOUNTER 2024-04-17 14:26 | Outpatient (REF) | payer OTHER, SELFPAY ==
[2024-04-17 17:23] LABS: TSH reflex Free T4 5.07 uIU/mL (0.32-4.0); Vitamin D 25-OH Total 64.7 ng/mL (>30)
[2024-04-17 18:32] LABS: Free T4 (Free Thyroxine) 1.28 ng/dL (0.71-1.85)
== END 2024-04-17 14:27 | disposition home or self-care (01) ==
LOC: HO.WFDLDS 14:26
PROVIDERS: Visit Provider Nurse Practitioner Family
DX: E55.9 Vitamin D deficiency, unspecified (principal); E03.9 Hypothyroidism, unspecified; L72.9 Follicular cyst of the skin and subcutaneous tissue, unspecified; K59.01 Slow transit constipation; E66.811 Obesity, class 1; E66.09 Other obesity due to excess calories; Z68.33 Body mass index [BMI] 33.0-33.9, adult; N63.21 Unspecified lump in the left breast, upper outer quadrant; M43.06 Spondylolysis, lumbar region; M79.671 Pain in right foot
CPT/HCPCS: 36415; 82306; 84439; 84443; 96127

== ENCOUNTER 2024-06-13 15:03 | Outpatient (AMB) | payer OTHER, SELFPAY ==
--- NOTE | 2024-06-13 15:10 | A.OFFVIS_ITS ---
Vital Signs 3 06/13/24 15:15 Height 5 ft 5 in Weight 197 lb BMI 32.8 BP 133/82 Blood Pressure Location Lt brachial Position Sitting Pulse 61 Intake Visit Reasons: unspecified lump in the left breast, UOQ Intake Note: Patient is seen in office for evaluation of a lump in the left breast, upper outer quadrant. Pt c/o: feels a lump on the left breast for aprox 4 months, denies redness, discharge, pain, no prior breast surgeries or infections, admits to hx of breast cancer paternal grandmother mm/us:04/11/24 Foundry Superintendant Required: No Social Worker: Social Worker Present Accompanied by: Self / Same As Patient Allergies Sulfa (Sulfonamide Antibiotics) Allergy (Mild, Verified 06/13/24 15:15) Rash Medication List - Last Reconciled 06/13/24 by Richy Castillo MD cholecalciferol (vitamin D3) 25 mcg PO DAILY levothyroxine 25 mcg PO DAILY levothyroxine 200 mcg (2 x 100 mcg) PO DAILY 90 days HPI Comments Details: 44-year-old female patient presenting for evaluation of a lump in the left breast noted on self-examination and confirmed on physical examination. The lump was 1st identified approximately 4 months ago on self-examination. She denies any significant pain, discharge or bleeding from the site. The lesion appears to be limited to the skin with no underlying mass noted. She underwent evaluation with mammogram and ultrasound on 04/11/2024 which revealed no suspicious findings in either breast. Her family history is significant only for a maternal grandmother with history of breast cancer diagnosed in her mid 50s. The patient's menarche was at 12, she is G0, in his premenopausal. She denies a family history of ovarian. She does have Ashkenazi Adventist heritage in her mother's side. [facility] Medical History Elevated liver enzymes Elevated glucose level Impacted cerumen of both ears Surgical History No pertinent past surgical history Family History Father No problems noted. Mother No problems noted. 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 Current occupational exposures/hazards: No Gender identity: Female Cognitive needs: No Hearing needs: No Vision needs: No Female Reproductive History Menstrual Age of Menarche: 12 Date of last menstrual period: 05/30/24 Total pregnancies: 0 Review of Systems Const All systems reviewed & are unremarkable except as noted in HPI and below Physical Exam Vital Signs: Last Vital Signs Pulse 61 06/13/24 15:15 BP 133/82 06/13/24 15:15 BMI result Body Mass Index 32.8 Const General: cooperative and no acute distress Nutritional Appearance: well nourished Orientation/consciousness: patient oriented x3 Limitations: no limitations HEENT Head: Yes normocephalic and Yes atraumatic Ears: hearing grossly normal bilaterally Chest Other: Left breast: Small superficial skin cyst in the upper outer quadrant measuring approximately 3 mm in diameter with a bluish discoloration with no underlying mass. Findings most consistent with a epidermal inclusion cyst. No nipple retraction, no nipple discharge, no palpable mass, no enlarged lymph nodes. Right breast: No skin change, no nipple retraction, no nipple discharge, no palpable mass, no enlarged lymph nodes Chest/axillae images: 2 1. Site of cystic skin lesion Resp Effort & Inspection: normal respiratory effort, no audible wheezes, no cough and no respiratory distress Cardio Jugular venous distension: no JVD GI Inspection: Yes normal to inspection Skin Other: Warm, dry, no rash Neuro General: patient oriented x3 Extrem General: Yes no clubbing, cyanosis or edema Assessment & Plan Assessment & Plan (1) Breast skin changes: Code(s): R23.4 - Changes in skin texture Category: Medical Plan 44-year-old female patient presenting with a left breast skin lesion which appears most consistent with an epidermal inclusion cyst with no underlying mass appreciated. The remainder of her breast exam was normal as well. Review of the mammogram and ultrasound also revealed no suspicious changes in either breast. I recommended observation of this skin lesion with excision if the lesion becomes more symptomatic with redness, pain or discharge. She is welcome to call if any changes are noted for re-evaluation. The patient expressed understanding and agrees with the plan. Coding Level of Care Code New Pt Level 4 (56627) Diagnoses Breast skin changes R23.4
[2024-06-13 15:15] VITALS: BP 133/82; PULSE 61; BMI 32.8
== END 2024-06-13 15:45 | disposition home or self-care (01) ==
LOC: HO.HGS 15:03
PROVIDERS: PCP Nurse Practitioner Family; Visit Provider Surgery
DX: R23.4 Changes in skin texture (principal)
CPT/HCPCS: 99204

== ENCOUNTER 2024-06-14 13:29 | Outpatient (REF) | payer OTHER, SELFPAY ==
[2024-06-15 13:02] LABS: Bacterial Vaginosis PCR NEGATIVE (Negative); Candida Group PCR DETECTED (Not Detect); Candida glab krusei PCR NOT DETECTED (Not Detect); Trichomonas vaginalis PCR NOT DETECTED (Not Detect)
== END 2024-06-14 13:30 | disposition home or self-care (01) ==
LOC: HO.LAB 13:29
PROVIDERS: PCP Nurse Practitioner Family; Visit Provider Nurse Practitioner Family
DX: N89.8 Other specified noninflammatory disorders of vagina (principal); E03.9 Hypothyroidism, unspecified; E66.811 Obesity, class 1; E66.09 Other obesity due to excess calories; Z68.33 Body mass index [BMI] 33.0-33.9, adult
CPT/HCPCS: 81515; 96127

== ENCOUNTER 2024-06-14 13:29 | Outpatient (AMB) | payer OTHER, SELFPAY ==
--- NOTE | 2024-06-14 13:32 | A.OFFPC_ITS ---
Vital Signs 06/14/24 13:35 Height 5 ft 5 in Weight 197 lb 8 oz BMI 32.9 BP 118/72 Blood Pressure Location Lt brachial Position Sitting Respiration 12 Pulse 68 Pulse Source Pulse Oximeter Temp 97.2 F Temp Source Oral Pulse Oximetry (%) 99 Oxygen Delivery Method Room Air Intake Visit Reasons: yeast inf Intake Note: Patient complaining of itching and discharge since Wednesday Security Project Manager Required: No Allergies Sulfa (Sulfonamide Antibiotics) Allergy (Mild, Verified 06/14/24 13:40) Rash Tobacco use date assessed: 06/14/24 Dental Screening Dental Screen Date: 06/14/24 Did you have a dental visit in the last 12 months?: Yes Did you have a dental problem in the last 6 months where you did not have access to dental care?: No Was dental information given to patient?: Patient has dentist HPI HPI Comments History of Present Illness Details 44-year-old female with former tobacco u ser, uterine fibroid, elevated liver enzymes, impaired fasting glucose, hypothyroidism, obesity, family hx of breast ca, Vit D def, epidermal inclusion cyst L breast (gen surg eval 05/2024) Social: [place] as a 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 related to 12/07 exposure), Mom with DM, MGM with DM, older brother - alive and well. No children. Health Maintenance: ?Colon NA ?Mammo 06/19/2023 ?DEXA NA ?PAP 07/17/2020 ?Tdap 10/06/23 Flu Specialists: [employer] System [facility] History of Present Illness - The patient is a 44-year-old female pr esenting with vaginal itching and discharge. - Symptoms began the previous Wednesday and are characterized by white discharge without malodor. - There is no history of antibiotic use before the onset of symptoms. - Monistat was used on Wednesday, providing partial relief. - Recently active with a new sexual part ner, but patient denies STI concerns. - Previous history of bacterial vaginosi s. - Reduced discharge noted, but continued dryness and occasional itchiness persist. Hypothyroid - taking levothyroxine as directed, due for repeat labs, will get done today. Physical Exam Awake alert NAD Self swab for BV performed Mood and affect appropriate Discussion Notes I discussed that the current symptoms likely indicate a yeast infection. I explained the process for performing a self-swab to check for yeast, bacterial vaginosis, and Trichomonas. The benefits of patient-performed swabs, given their similar accuracy to provider-performed swabs, were highlighted. I explained the potential need for further treatment based on the results of the swab and the possibility of intravaginal MetroGel if bacterial vaginosis is confirmed. Additionally, I informed the patient about new recommendations to consider james ating male partners to reduce recurrence of bacterial vaginosis. The patient is aware that results typically return in 24 hours, and results will be communicated via the portal. Anticipatory guidance includes monitoring for future symptoms and the steps to be followed based on current results. Regarding hypothyroidism, a lab order was due two weeks ago, and the patient will follow up with the necessary blood work today. A work excuse note will be provided as per the patient?s request. Assessment and Plan 1. Vaginal Candidiasis: The patient's sy mptoms suggest Yoli infection, warranting swab testing for confirmation. Self-swab testing for yeast, BV, and Trichomonas has been advised to ascertain the infection type. 2. Bacterial Vaginosis: As BV is a possi bility due to history, if detected, intravaginal MetroGel treatment will be considered. Partner treatment was discussed to reduce recurrence risk. 3. Hypothyroidism: The patient is schedu led for thyroid function testing today to evaluate the current levothyroxine regimen, with follow-up decisions based on test outcomes. Patient Instructions - Perform the self-swab test as instruct ed to evaluate for yeast infection and STDs. - Await swab test results which will be available within 24 hours and accessed via the patient portal. - Please go to the lab today for thyroid function testing. - Monitor for any worsening symptoms or new concerns. - A work note will be provided at the [facility] desk for your convenience. Consent Consent was obtained from the patient for Amsel criteria testing using a self- performed vaginal swab to check for yeast, bacterial vaginosis, and Trichomonas. Risks of potential discomfort during swabbing were discussed, with reassurance provided regarding the procedure?s similar accuracy to provider-performed swabs. The patient agreed to proceed with plans outlined for potential diagnoses and understands discussion points made about privacy and accessing results through the patient portal. Consent for the drawing of blood for thyroid testing was verbally confirmed. Patient was informed and verbally consented to the use of an ambient scribe for clinic note documentation during this visit. Total time spent caring for the patient today was 30 minutes. This includes time spent before the visit reviewing the chart, time spent during the visit, and time spent after the visit on documentation, reviewing laboratory results, diagnostic imaging, medications, performing a medically necessary evaluation, counseling on diagnoses, care coordination, ordering appropriate tests, ordering appropriate medications, review of tests performed by other providers, reporting test results with the patient, communication with other healthcare providers. [facility] Medical History Elevated liver enzymes Elevated glucose level Impacted cerumen of both ears Surgical History No pertinent past surgical history Family History Father No problems noted. Mother No problems noted. 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 1. Little interest or pleasure in doing things: not at all 2. Feeling down, depressed, or hopeless: not at all 3. Trouble falling or staying asleep, or sleeping too much: several days 4. Feeling tired or having little energy: several days 5. Poor appetite or overeating: not at all 6. Feeling bad about yourself - or that you are a failure or have let yourself or your family down: not at all 7. Trouble concentrating on things, such as reading the newspaper or watching television: not at all 8. Moving or speaking so slowly that other people could have noticed. Or the opposite - being so fidgety or restless that you have been moving around a lot more than usual: not at all 9. Thoughts that you would be better off or of hurting yourself in some way: not at all Total score: 2 Depression Screening Interpretation: Negative Depression Screening Done: Yes 20553 - PHQ-9 Billing: Yes Source: Developed by Drs. Shreyas Balderas, Cherise Wright, Eric Pacheco and colleagues, with an educational prasad from [employer]. Thrive Questionnaire Date Thrive assessed: 06/14/24 I am a: Patient What is your living situation today?: I have a steady place to live Within the past 12 months, did the food you bought not last and you didn't have the money to get more?: Never true Within the past 12 months, did you worry whether your food would run out before you got money to buy more?: Never true Do you have trouble paying for medicines?: No Do you have trouble getting transportation to medical appointments?: No Do you have trouble paying your heating and electricity bill?: No Do you have trouble taking care of your child, family member or friend?: No Do you have trouble with day-to-day activities such as bathing, preparing meals, shopping, managing finances, etc.?: No Are you currently unemployed and looking for a job?: No Are you interested in more education?: No Please select the resources that you would like help with: None Currently or been in a relationship where the following occur: I choose not to answer THRIVE Score: 0 AUDIT C Alcohol Use Questionnaire (AUDIT-C) 1. How often do you have a drink containing alcohol?: Never 3. How often do you have six or more drinks on one occasion?: Never Total Score: 0 Score Reviewed/Action Taken: Yes MEKHI-7 AMB Questionnaire MEKHI-7 Date MEKHI - 7 assessed: 06/14/24 Feeling nervous, anxious, or on edge: 0 = Not at all Not being able to stop or control worryin = Not at all Worrying too much about different things: 0 = Not at all Trouble relaxin = Not at all Being so restless that it is hard to sit still: 0 = Not at all Becoming easily annoyed or irritable: 0 = Not at all Feeling afraid as if something awful might happen: 0 = Not at all Total MEKHI-7 score (0-4 normal; 5-9 mild; 10-14 moderate; 15-21 severe): 0 Source: Developed by Drs. Shreyas Balderas, Cherise Wright, Eric Pacheco and colleagues, with an educational prasad from [employer]. MEKHI-7 Assessment Billing MEKHI-7 Assessment Tool: MEKHI-7 Assessment 66077 Physical exam (Primary Care) Vital Signs: Last Vital Signs Temp 97.2 F 06/14/24 13:35 Pulse 68 06/14/24 13:35 Resp 12 06/14/24 13:35 BP 118/72 06/14/24 13:35 Pulse Ox 99 06/14/24 13:35 Oxygen Delivery Method Room Air 06/14/24 13:35 BMI result Body Mass Index 32.9 BMI Assessment/Plan discussion: High BMI High, discussed plan: lifestyle Tobacco/Smoking Status: Tobacco use Status Tobacco use date assessed 06/14/24 06/14/24 13:37 Patient Tobacco Use Status Former Tobacco user 06/14/24 13:37 e-Cigarette/Vaping Use Never Used 06/14/24 13:37 PHQ-9: PHQ-9 Score PHQ-9: Total score 2 06/14/24 13:37 Depression Screening Interpretation: Negative Thrive Assessment: Date of Thrive Assessment Date Thrive assessed 06/14/24 06/14/24 13:37 Currently or been in a relationship where the following occur: I choose not to answer Coding Level of Care Code Est Pt Level 4 (05142) Complex EM visit Add On G2211 Diagnoses Vaginal discharge N89.8 Hypothyroidism (acquired) E03.9 Class 1 obesity due to excess calories without serious comorbidity with body mass index (BMI) of 33.0 to 33.9 in adult E66.811; E66.09; Z68.33 Obesity type: due to excess calories Serious obesity comorbidity presence: without serious comorbidity BMI 33.0-33.9,adult Z68.33 Additional Codes MEKHI-7 Assessment Billing - MEKHI-7 Assessment Tool: MEKHI-7 Assessment 33654 ([id number]) PHQ-9 - 78714 - PHQ-9 Billing: Yes ([id number]) Assessment & Plan Assessment & Plan (1) Vaginal discharge: Code(s): N89.8 - Other specified noninflammatory disorders of vagina Category: Medical (2) Hypothyroidism (acquired): Code(s): E03.9 - Hypothyroidism, unspecified Category: Medical (3) Class 1 obesity with body mass index (BMI) of 33.0 to 33.9 in adult: Code(s): E66.811 - Obesity, class 1; Z68.33 - Body mass index [BMI] 33.0-33.9, adult Category: Medical Qualifiers: Obesity type: due to excess calories Serious obesity comorbidity presence: without serious comorbidity Qualified Code(s): E66.811 - Obesity, class 1; E66.09 - Other obesity due to excess calories; Z68.33 - Body mass index [BMI] 33.0-33.9, adult (4) BMI 33.0-33.9,adult: Code(s): Z68.33 - Body mass index [BMI] 33.0-33.9, adult Category: Medical Plan . Orders: Orders Bacterial Vaginosis Panel Today N89.8 - Other specified noninflammatory disorders of vagina
[2024-06-14 13:35] VITALS: BP 118/72; PULSE 68; RESP 12; TEMP 36.2; O2SAT 99; BMI 32.9
== END 2024-06-14 13:56 | disposition home or self-care (01) ==
LOC: HO.HMCFM 13:30
PROVIDERS: PCP Nurse Practitioner Family; Visit Provider Nurse Practitioner Family
DX: N89.8 Other specified noninflammatory disorders of vagina (principal); E03.9 Hypothyroidism, unspecified; E66.811 Obesity, class 1; E66.09 Other obesity due to excess calories; Z68.33 Body mass index [BMI] 33.0-33.9, adult

== ENCOUNTER 2024-06-14 13:53 | Outpatient (REF) | payer OTHER, SELFPAY | END 2024-06-14 13:54 | disposition home or self-care (01) | LOC: HO.WFDLDS 13:53 | PROVIDERS: Visit Provider Nurse Practitioner Family | DX: E03.9 Hypothyroidism, unspecified (principal) | CPT/HCPCS: 36415; 84443 ==

== ENCOUNTER 2024-08-02 15:37 | Outpatient (REF) | payer OTHER, SELFPAY | END 2024-08-02 15:38 | disposition home or self-care (01) | LOC: HO.SH 15:37 | PROVIDERS: Visit Provider Nurse Practitioner Family | DX: Z01.118 Encounter for examination of ears and hearing with other abnormal findings (principal); H93.13 Tinnitus, bilateral | CPT/HCPCS: 92557; 92567; 92588 ==

== ENCOUNTER 2024-10-31 07:52 | Outpatient (REF) | payer OTHER, SELFPAY ==
[2024-10-31 12:15] LABS: Hematocrit 41.9 % (37.0-47.0); Hemoglobin 13.8 g/dl (12.0-16.0); Mean Corpuscular HGB Conc 32.9 g/dl (31.0-35.0); Mean Corpuscular Hemoglobin 31.3 pg (27.0-33.0); Mean Corpuscular Volume 95.0 fL (80.0-98.0); NRBC Abs Auto 0.000 X10*3/uL (0.0-0.012); NRBC Pct Auto 0.0 /100WBC (0.0-0.2); Platelet Count 197 X10*3/uL (160-400); Red Blood Count 4.41 X10*6/uL (4.20-5.50); White Blood Count 11.1 X10*3/uL (4.8-10.8)
[2024-10-31 12:21] LABS: Hemoglobin A1C 128.0938 umol/L; Total Hemoglobin (HGBA1C) 3777.0816 umol/L
[2024-10-31 12:29] LABS: Alanine Aminotransferase 17 U/L (0-31); Albumin Level 4.4 g/dL (3.5-5.0); Alkaline Phosphatase 51 U/L (39-117); Anion Gap 10 (12-20); Aspartate Amino Transferase 27 U/L (5-31); Blood Urea Nitrogen 12 mg/dL (9-16); Calcium 8.8 mg/dL (8.4-10.2); Carbon Dioxide 26 mmol/L (22-29); Chloride 107 mmol/L (96-108); Cholesterol 185 mg/dL (<200); Estimated Glomerular Filt Rate > 60; HDL Cholesterol 66 mg/dL (>40); Potassium 4.0 mmol/L (3.3-5.1); Sodium 139 mmol/L (135-145); Total Protein 6.8 g/dL (6.5-8.0); Triglycerides 116 mg/dL (<150)
[2024-10-31 12:58] LABS: Folate 12.7 ng/mL (> or = 4.0); Vitamin B12 285 pg/mL (200-900)
== END 2024-10-31 07:53 | disposition home or self-care (01) ==
LOC: HO.LAB 07:52
PROVIDERS: PCP Nurse Practitioner Family; Visit Provider Nurse Practitioner Family
DX: Z00.00 Encounter for general adult medical examination without abnormal findings (principal); E03.9 Hypothyroidism, unspecified; E55.9 Vitamin D deficiency, unspecified; H91.93 Unspecified hearing loss, bilateral; K59.01 Slow transit constipation; E66.9 Obesity, unspecified; Z68.32 Body mass index [BMI] 32.0-32.9, adult; N60.82 Other benign mammary dysplasias of left breast; Z86.018 Personal history of other benign neoplasm; Z79.899 Other long term (current) drug therapy; Z80.3 Family history of malignant neoplasm of breast; Z82.49 Family history of ischemic heart disease and other diseases of the circulatory system; Z13.1 Encounter for screening for diabetes mellitus
CPT/HCPCS: 36415; 80053; 80061; 82043; 82172; 82306; 82570; 82607; 82746; 83036; 84443; 85027; 86141

== ENCOUNTER 2024-10-31 07:52 | Outpatient (AMB) | payer OTHER, SELFPAY ==
--- OUTSIDE RECORDS SUMMARY | 2024-10-31 07:54 | XMS_ITS | Clinical Summary ---
Author Organization [facility] Address [address] [place] [phone] Phone Care Team Providers Care Photographer Assistant Name Role Phone Chayo Cevallos MD Primary Care Provider Allergies Active Allergy Reactions Criticality Noted Date Comments Sulfa (Sulfonamide Antibiotics) 11/2022 Medications levothyroxine (SYNTHROID, LEVOTHROID) 100 MCG tablet 01/30/2023 Active Active Problems No known active problems Social History Tobacco Use Types Packs/Day Years Used Date Smoking Tobacco: Never Assessed Education Answer Date Recorded Are you interested in more education? Not on jc e 03/06/2023 Are you concerned about learning? Not on file 03/06/2023 No 03/06/2023 No 03/06/2023 Digital Access Answer Date Recorded No 03/06/2023 No 03/06/2023 Reliable internet access at home? Not on file 03/06/2023 Device with a working camera? Not on file Comments Unknown Sex and Gender Information Value Date Recorded Sex Assigned at Not on file Legal Sex Female 7:07 PM EST Gender Identity Not on file Sexual Orientation Not on file Last Filed Vital Signs Vital Sign Reading Time Taken Comments Blood Pressure 122/85 03/06/2023 11:51 AM EST Pulse 64 03/06/2023 11:51 AM EST Temperature 37.2 C (99 F) 03/06/2023 11:51 AM EST Respiratory Rate 16 03/06/2023 11:51 AM EST Oxygen Saturation 100% 03/06/2023 11:51 AM EST Inhaled Oxygen Concentration - - Weight 99.8 kg (220 lb) 03/06/2023 11:51 AM EST Height 166.4 cm (5' 5.5 ) 03/06/2023 11:51 AM ES T Body Mass Index 36.05 03/06/2023 11:51 AM EST Plan of Treatment Health Maintenance Due Date Last Done Comments TSH LEVEL 1980 DEPRESSION SCREENING 1992 SMOKING Hx and SMOKELESS TOB ACCO SCREENING 01/10/1993 HEPATITIS C SCREENING 01/10/1998 HIV ONE-TIME SCREENING (18-6 5 YEARS) 01/10/1998 PAP SMEAR 01/10/2001 SCREENING FOR DIABETES 01/10/2015 MAMMOGRAM 2020 Adult Td,Tdap Booster 04/13/2022 04/13/2012 COVID-19 VACCINE (2023-2 5 season) 2023 HEPATITIS A VACCINES Aged Out No long er eligible based on patient's age to complete this topic HIB VACCINES Aged Out No longer eligi ble based on patient's age to complete this topic MENINGOCOCCAL VACCINES (ACWY) Aged Out No longer eligible based on patient's age to complete this topic MENINGOCOCCAL VACCINES (B) Aged Out N o longer eligible based on patient's age to complete this topic PNEUMOCOCCAL VACCINES (0-49 years) Aged Out No longer eligible based on patient's age to complete this topic Medical Devices Not on file Insurance [facility] POS EPO [facility]PO [facility] [employer] Care Teams Photographer Assistant Relationship Specialty Start Date End Date Chayo Cevallos MD [address] [facility] [address] [place] [id number] PCP - General 03/06/23 Additional Source Comments The information contained in this document represents components of the legal health record. It is not the complete legal health record.[facility]
--- NOTE | 2024-10-31 07:55 | A.OFFPC_ITS ---
Vital Signs 10/31/24 07:58 Height 5 ft 5 in Weight 192 lb 2 oz BMI 32.0 BP 105/68 Blood Pressure Location Lt brachial Position Sitting Respiration 12 Pulse 55 Pulse Source Pulse Oximeter Temp 97.5 F Temp Source Oral Pulse Oximetry (%) 98 Oxygen Delivery Method Room Air Intake Visit Reasons: CPE Intake Note: CPE Fraternity Adviser Required: No Allergies Sulfa (Sulfonamide Antibiotics) Allergy (Mild, Verified 10/31/24 08:09) Rash Medication List - Last Reconciled 10/31/24 by Sabrina Perez DRY PAN CHARGER- cholecalciferol (vitamin D3) 25 mcg PO DAILY levothyroxine 25 mcg PO DAILY levothyroxine 200 mcg (2 x 100 mcg) PO DAILY 90 days Tobacco use date assessed: 10/31/24 Dental Screening Dental Screen Date: 10/31/24 Did you have a dental visit in the last 12 months?: Yes Did you have a dental problem in the last 6 months where you did not have access to dental care?: No Was dental information given to patient?: Patient has dentist HPI HPI Comments History of Present Illness Details 44-year-old female with former tobacco u ser, uterine fibroid, elevated liver enzymes, impaired fasting glucose, hypothyroidism, obesity, family hx of breast ca, Vit D def, epidermal inclusion cyst L breast (gen surg eval 05/2024) 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 related to 12/07 exposure), Mom with pacemaker, DM, MGM with DM, older brother - alive and well. No children. *New onset of cardiac stuff since last year. Sounds like CAD. Health Maintenance: ?Colon referred today to [facility] first screening ?Mammo 03/2024 ?DEXA NA ?PAP 07/17/2020, Active w/ [facility] ?Tdap 10/06/23 Flu Routine eye exam - wears contacts Specialists: In [facility] Derm referred last year but did not attend appt Audio WNL 2023 GI History of Present Illness - The patient is a 44-year-old female pr esenting for CPE - c/o menstrual irregularities. - Experiencing periods every 20 days - History of uterine fibroids confirmed via ultrasound in 2023. - Recent gynecological exam @ [facility]. Notes reviewed. - Hypothyroidism managed with levothyrox ine 225 mcg daily. Due for labs. - Vitamin D deficiency managed with supp lementation. Due for labs - Obesity with BMI of 32; weight loss ef forts affected by seasonal habits. - Family history notable for cardiovascu lar issues; brother had cardiac interventions, mother has pacemaker. New since last year. - Reports occasional dizziness upon jasmin ding. This is new. Not assoc w/ CP or syncope. Family History - Brother: Cardiac intervention. - Mother: Pacemaker. - Father: Similar cardiac procedure. - No family history of colon cancer. - Family history of breast cancer (not c olon cancer). Health Maintenance - Mammogram completed in March, follow -up with a breast surgeon confirmed an e pidermal inclusion cyst. - Tetanus vaccination up-to-date; admini stered last year. - Influenza vaccination discussed, plann ing to receive in the coming season. - Colonoscopy screening beginning at age 45 discussed due to new guidelines despite absence of family history of colorectal cancer. - Right not due for bone density screeni singh as she is still experiencing menstruation. Review of Systems - General: Denies significant weight los s, reports feeling stuck at current weight. - Cardiovascular: Reports a family histo ry of cardiovascular issues. Occasional dizziness upon standing. - Endocrine: Hypothyroidism managed with medication. - Reproductive: Reports menstrual irregu larities with cycles every 20; Family history of breast cancer. - Skin: Discussed past epidermal inclusi on cyst. - Musculoskeletal/Neurological: Denies f ainting episodes. - Ears: dry itchy skin bilat ears; using vaseline w/o effect Physical Exam General: Well developed, well nourished, in no acute distress. Appears stated age. BMI of 32. Head: Normocephalic, atraumatic. Eyes: Pupils are equal, round and reactive to light and accommodation. Conjunctivae are clear. Vision grossly normal. Ears: TMs clear AU, EACS WNL, Dry skin bilat EAC Nose: Patent, without discharge. Neck: Supple, no adenopathy or thyromegaly. Breast: Edu on SBE. Lungs: Clear to auscultation bilaterally. No rales, rhonchi or wheeze noted. Good air flow in all colon. Heart: Regular rate and rhythm. No murmurs, click, rubs or gallops are noted. Abdomen: Bowel sounds present in all quadrants. The abdomen is soft, nontender, with no masses or organomegaly noted. No hernias are noted. : Deferred. Reviewed recommendations for routine [facility] [facility].. Pulses: Peripheral pulses are equal and palpable bilaterally. Extremities: No clubbing, cyanosis nor edema is noted. Neurologic: Gait and station normal. Cranial Nerves 2-12 intact. Motor strength grossly symmetrical and intact. No sensory loss. Balance normal. Skin: No rashes, ulcers, or lesions noted. Turgor is good. Skin color is good. Hair and nails are without abnormalities. Psych: Normal eye contact, affect and mood appropriate, and normal interactions. Patient is alert and appropriate to context. Results Pending Discussion Notes During today's visit, we discussed the patient's ongoing menstrual irregularities and the recent gynecological evaluations, including past findings from ultrasound concerning her uterine fibroids. We spoke about possible management options such as using an IUD for regulating periods and potential surgical interventions for fibroid reduction. I sent a message to [facility] director of regulatory affairs to request appointment for further evaluation. Regarding her increased cardiovascular risk due to a family history, I explained the importance of monitoring her cholesterol levels, given new c/o dizziness consideration for a stress test. She worries about cost. [place] decision making, start w/ labs consider stress test or referral to cards in future PRN. Supportive care for dizziness (hydration, slow position changes, etc). We reviewed recent changes in screening guidelines recommending the beginning of colonoscopy at age 45, which will be set up with GI for evaluation. Additionally, consent was gained to proceed with a dermatology referral to evaluate any skin concerns, including her cyst and for a full skin check screening. Lastly, I reminded her of obtaining the flu vaccine for the upcoming season. Patient was given time to ask questions. All questions were answered to their satisfaction. Assessment and Plan 1. Menstrual Irregularities - Gynecological follow-up planned. - Consider IUD. 2. Hypothyroidism - Continue current medication. - Monitor thyroid levels. 3. Obesity - Emphasize diet and exercise. 4. Vitamin D Deficiency - Continue supplements. 5. Uterine Fibroids - Monitor; pending gynecological review. 6. Cardiovascular Family History - Potential stress test; labs planned. 7. Skin Concerns - Dermatology referral obtained. Some irritation noted bilat EAC, recommend using [id number] hydrocortisone. Referral for dermatology for skin check and cysts. Patient Instructions - Follow-up with FAMILY SERVICES COORDINATOR for menstrual ir regularities. - Continue taking levothyroxine and pati min D as prescribed. - Maintain a balanced diet and regular p hysical activity. - Obtain flu shot for the upcoming seaso n. - Schedule and attend dermatology appoin tment for skin evaluation. - Arrange stress test if recommended aft er lab results. - RTO 6 months w/ labs thyroid. Sooner p rn Consent Patient was informed and verbally consented to the use of an ambient scribe for clinic note documentation during this visit. An additional 30 minutes was spent addressing the problem(s) noted at todays visit. This includes time spent before the visit reviewing the chart, time spent during the visit, and time spent after the visit on documentation reviewing laboratory results, diagnostic imaging, medications, performing a medically necessary evaluation, counseling on diagnoses, care coordination, ordering appropriate tests, ordering appropriate medications, review of tests performed by other providers, reporting test results with the patient, communication with other healthcare providers. [facility] Medical History Elevated liver enzymes Elevated glucose level Impacted cerumen of both ears Surgical History No pertinent past surgical history Family History Father No problems noted. Mother No problems noted. 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 Current occupational exposures/hazards: No Gender identity: Female Cognitive needs: No Hearing needs: No Vision needs: No Female Reproductive History Menstrual Age of Menarche: 12 Questionnaire Thrive Questionnaire Date Thrive assessed: 06/14/24 I am a: Patient What is your living situation today?: I have a steady place to live Within the past 12 months, did the food you bought not last and you didn't have the money to get more?: Never true Within the past 12 months, did you worry whether your food would run out before you got money to buy more?: Never true Do you have trouble paying for medicines?: No Do you have trouble getting transportation to medical appointments?: No Do you have trouble paying your heating and electricity bill?: No Do you have trouble taking care of your child, family member or friend?: No Do you have trouble with day-to-day activities such as bathing, preparing meals, shopping, managing finances, etc.?: No Are you currently unemployed and looking for a job?: No Are you interested in more education?: No Please select the resources that you would like help with: None Currently or been in a relationship where the following occur: I choose not to answer THRIVE Score: 0 MEKHI-7 AMB Questionnaire MEKHI-7 Date MEKHI - 7 assessed: 06/14/24 Source: Developed by Drs. Shreyas Balderas, Cherise Wright, Eric Pacheco and colleagues, with an educational prasad from [employer]. Physical exam (Primary Care) Vital Signs: Last Vital Signs Temp 97.5 F 10/31/24 07:58 Pulse 55 10/31/24 07:58 Resp 12 10/31/24 07:58 BP 105/68 10/31/24 07:58 Pulse Ox 98 10/31/24 07:58 Oxygen Delivery Method Room Air 10/31/24 07:58 BMI result Body Mass Index 32.0 BMI Assessment/Plan discussion: High BMI High, discussed plan: lifestyle Tobacco/Smoking Status: Tobacco use Status Tobacco use date assessed 10/31/24 10/31/24 07:58 Patient Tobacco Use Status Former Tobacco user 10/31/24 07:55 e-Cigarette/Vaping Use Never Used 10/31/24 07:55 Thrive Assessment: Date of Thrive Assessment Date Thrive assessed 06/14/24 10/31/24 07:55 Currently or been in a relationship where the following occur: I choose not to answer Coding Level of Care Code Est Pt Level 4 (14540) Est Pt Prev Care 40-64y(31858) Diagnoses Encounter for general adult medical examination without abnormal findings Z00.00 Hypothyroidism (acquired) E03.9 Vitamin D deficiency E55.9 Bilateral hearing loss, unspecified hearing loss type H91.93 Hearing loss type: unspecified Laterality: bilateral Slow transit constipation K59.01 Constipation type: slow transit constipation Cervical cancer screening Z12.4 History of uterine fibroid Z86.018 Obesity (BMI 30-39.9) E66.9 Skin cyst L72.9 Skin cancer screening Z12.83 Family history of breast cancer Z80.3 Family history of pacemaker Z82.49 Family history of coronary artery disease Z82.49 Assessment & Plan Assessment & Plan (1) Encounter for general adult medical examination without abnormal findings: Onset Date: ~10/31/24 Code(s): Z00.00 - Encounter for general adult medical examination without abnormal findings Category: Medical (2) Hypothyroidism (acquired): Code(s): E03.9 - Hypothyroidism, unspecified Category: Medical (3) Vitamin D deficiency: Code(s): E55.9 - Vitamin D deficiency, unspecified Category: Medical (4) Hearing loss: Comment: normal hearing test [place] [facility] [place] Code(s): H91.90 - Unspecified hearing loss, unspecified ear Category: Medical Qualifiers: Hearing loss type: unspecified Laterality: bilateral Qualified Code(s): H91.93 - Unspecified hearing loss, bilateral (5) Constipation: Code(s): K59.00 - Constipation, unspecified Category: Medical Qualifiers: Constipation type: slow transit constipation Qualified Code(s): K59.01 - Slow transit constipation (6) Cervical cancer screening: Comment: neg pap w neg hpv in 2020, no hx of abnls as far as she knows; Code(s): Z12.4 - Encounter for screening for malignant neoplasm of cervix Category: Medical (7) History of uterine fibroid: Code(s): Z86.018 - Personal history of other benign neoplasm Category: Medical (8) Obesity (BMI 30-39.9): Code(s): E66.9 - Obesity, unspecified Category: Medical (9) Skin cyst: Comment: L breast Code(s): L72.9 - Follicular cyst of the skin and subcutaneous tissue, unspecified Category: Medical (10) Skin cancer screening: Code(s): Z12.83 - Encounter for screening for malignant neoplasm of skin Category: Medical (11) Family history of breast cancer: Code(s): Z80.3 - Family history of malignant neoplasm of breast Category: Medical (12) Family history of pacemaker: Comment: MOM 2024 Code(s): Z82.49 - Family history of ischemic heart disease and other diseases of the circulatory system Category: Medical (13) Family history of coronary artery disease: Comment: DAD AND BROTHER 2024 Code(s): Z82.49 - Family history of ischemic heart disease and other diseases of the circulatory system Category: Medical Plan , Orders: Orders Comprehensive Met. Panel Today E03.9 - Hypothyroidism, unspecified, E55.9 - Vitamin D deficiency, unspecified, E66.9 - Obesity, unspecified Complete Blood Count no Diff Today E03.9 - Hypothyroidism, unspecified, E55.9 - Vitamin D deficiency, unspecified, E66.9 - Obesity, unspecified Hemoglobin A1c Today E03.9 - Hypothyroidism, unspecified, E55.9 - Vitamin D deficiency, unspecified, E66.9 - Obesity, unspecified Lipid Panel Today E03.9 - Hypothyroidism, unspecified, E55.9 - Vitamin D deficiency, unspecified, E66.9 - Obesity, unspecified Microalbumin, Random (w Creat) Today E03.9 - Hypothyroidism, unspecified, E55.9 - Vitamin D deficiency, unspecified, E66.9 - Obesity, unspecified Vitamin B12 and Folate Today E03.9 - Hypothyroidism, unspecified, E55.9 - Vitamin D deficiency, unspecified, E66.9 - Obesity, unspecified Vitamin D 25-OH Total Today E03.9 - Hypothyroidism, unspecified, E55.9 - Vitamin D deficiency, unspecified, E66.9 - Obesity, unspecified Apolipoprotein A1 Today E03.9 - Hypothyroidism, unspecified, E55.9 - Vitamin D deficiency, unspecified, E66.9 - Obesity, unspecified Apolipoprotein B Today E03.9 - Hypothyroidism, unspecified, E55.9 - Vitamin D deficiency, unspecified, E66.9 - Obesity, unspecified CRP High Sensitivity Today E03.9 - Hypothyroidism, unspecified, E55.9 - Vitamin D deficiency, unspecified, E66.9 - Obesity, unspecified TSH reflex Free T4 6 Months E03.9 - Hypothyroidism, unspecified, E55.9 - Vitamin D deficiency, unspecified TSH reflex Free T4 Today E03.9 - Hypothyroidism, unspecified, E55.9 - Vitamin D deficiency, unspecified, E66.9 - Obesity, unspecified Vitamin D 25-OH Total 6 Months E03.9 - Hypothyroidism, unspecified, E55.9 - Vitamin D deficiency, unspecified Referrals Gastroenterology Referral Z12.11 - Encounter for screening for malignant neoplasm of colon Dermatology Referral L72.9 - Follicular cyst of the skin and subcutaneous tissue, unspecified, Z12.83 - Encounter for screening for malignant neoplasm of skin Patient Instructions: Health screenings for women You should visit your health care provider from time to time, even if you are healthy. The purpose of these visits is to: Screen for medical issues Assess your risk for future medical problems Encourage a healthy lifestyle Update vaccinations and other preventive care services Help you get to know your provider in case of an illness Information Even if you feel fine, you should still see your provider for regular checkups. These visits can help you avoid problems in the future. For example, the only way to find out if you have high blood pressure is to have it checked regularly. High blood sugar and high cholesterol levels also may not have any symptoms in the early stages. A simple blood test can check for these conditions. There are specific times when you should see your provider or receive specific health screenings. The [place] Preventive Services Task Force publishes a list of recommended screenings. Below are screening guidelines for women ages 18 to 39. BLOOD PRESSURE SCREENING Your blood pressure should be checked at least once every 3 to 5 years if: Your blood pressure is in the normal range (top number less than 120 mm Hg and bottom number less than 80 mm Hg) You don't have risk factors for high blood pressure Ask your provider if you need your blood pressure checked more often if: The top number is 120 to 129 mm Hg or the bottom number is 70 to 79 mm Hg You have diabetes, heart disease, kidney problems, are overweight, or have certain other health conditions You have a first-degree relative with high blood pressure You are Black You had high blood pressure during a If the top number is 130 mm Hg or greater or the bottom number is 80 mm Hg or greater, this is considered stage 1 hypertension. Schedule an appointment with your provider to learn how you can reduce your blood pressure. Watch for blood pressure screenings in your area. Ask your provider if you can stop in to have your blood pressure checked. BREAST CANCER SCREENING Experts do not agree about the benefits of breast self-exams in finding breast cancer or saving lives. Talk to your provider about what is best for you. A screening mammogram is not recommended for most women under age 40. Your provider may discuss and recommend mammograms, MRI scans, or ultrasounds if you have an increased risk for breast cancer, such as: A mother or sister who had breast cancer at a young age (most often starting screening earlier than the age the close relative was diagnosed) You carry a high-risk genetic marker CERVICAL CANCER SCREENING Cervical cancer screening should start at age 21 years unless your provider advises otherwise. After the first test: Women ages 21 through 29 should have a Pap test every 3 years. Exoprts do not agree on whether HPV testing is recommended for this age group. Women ages 30 through 65 should be screened with either a Pap test every 3 years or the HPV test every 5 years or both tests every 5 years (called cotesting ). Women who have been treated for precancer (cervical dysplasia) should continue to have Pap tests for 20 years after treatment or until age 65, whichever is longer. If you have had your uterus and cervix removed (total hysterectomy), and you have not been diagnosed with cervical cancer or precancer (high grade cervical neoplasia), you do not need cervical cancer screening. CHOLESTEROL SCREENING Cholesterol screening should begin at: Age 45 for women with no known risk factors for coronary heart disease Age 20 for women with known risk factors for coronary heart disease Repeat cholesterol screening should take place: Every 5 years for women with normal cholesterol levels More often if changes occur in lifestyle (including weight gain and diet) More often if you have diabetes, heart disease, kidney problems, or certain other conditions DIABETES SCREENING You should be screened for diabetes starting at age 35 and then repeated every 3 years if you have no risk factors for diabetes. Screening may need to start earlier and be repeated more often if you have other risk factors for diabetes, such as: You have a first degree relative with diabetes. You are overweight or have obesity. You have high blood pressure, prediabetes, or a history of heart disease. Screening for diabetes should be done if you are planning to become and you are overweight and have other risk factors such as high blood pressure. DENTAL EXAM Go to the dentist once or twice every year for an exam and cleaning. Your dentist will evaluate if you need more frequent visits. EYE EXAM Have an eye exam every 5 to 10 years before age 40. If you have vision problems, have an eye exam every 2 years or more often if recommended by your provider. You should have an eye exam that includes an examination of your retina (back of your eye) at least every year if you have diabetes. IMMUNIZATIONS Commonly needed vaccines include: Flu shot: get one every year. COVID-19 vaccine: ask your provider what is best for you. Tetanus-diphtheria and acellular pertussis (Tdap) vaccine: have one at or after age 19 as one of your tetanus-diphtheria vaccines if you did not receive it as an adolescent. Tetanus-diphtheria: have a booster (or Tdap) every 10 years. Varicella vaccine: receive 2 doses if you never had chickenpox or the varicella vaccine. Hepatitis B vaccine: receive 2, 3, or 4 doses, depending on your exact circumstances. Measles, mumps, and rubella (MMR) vaccine: receive 1 to 2 doses if you are not already immune to MMR. Your provider can tell you if you are immune. Ask your provider about the human papillomavirus (HPV) vaccine if: You have not received the HPV vaccine in the past You have not completed the full vaccine series (you should catch up on this shot) Ask your provider if you should receive other immunizations if you have certain health problems that increase your risk for some diseases such as pneumonia. INFECTIOUS DISEASE SCREENING Women who are sexually active should be screened for chlamydia and gonorrhea up until age 25. Women 25 years and older should be screened for chlamydia and gonorrhea if at high risk. Screening for hepatitis C: All adults ages 18 to 79 should get a one-time test for hepatitis C. people should be screened at every . Screening for human immunodeficiency virus (HIV): All people ages 15 to 65 should get a one-time test for HIV. Depending on your lifestyle and medical history, you may also need to be screened for infections such as syphilis and HIV, as well as other infections. PHYSICAL EXAM All adults should visit their provider from time to time, even if they are healthy. The purpose of these visits is to: Screen for disease Assess your risk of future medical problems Encourage a healthy lifestyle Update your vaccinations and other preventive care services Maintain a relationship with a provider in case of an illness Your height, weight, and BMI should be checked at every exam. During your exam, your provider may ask you about: Depression and anxiety Diet and exercise Alcohol and tobacco use Safety issues, such as using seat belts, smoke detectors, and intimate partner violence Your medicines and risk for interactions SKIN SELF-EXAM Your provider may check your skin for signs of skin cancer, especially if you're at high risk, such as if you: Have had skin cancer before Have close relatives with skin cancer Have a weakened immune system OTHER SCREENING Talk with your provider about colon cancer screening if you have a strong family history of colon cancer or polyps, or if you have had inflammatory bowel disease or polyps yourself. Routine bone density screening of women under 40 is not recommended.
[2024-10-31 07:58] VITALS: BP 105/68; PULSE 55; RESP 12; TEMP 36.4; O2SAT 98; BMI 32.0
== END 2024-10-31 08:43 | disposition home or self-care (01) ==
LOC: HO.HMCFM 07:52
PROVIDERS: PCP Nurse Practitioner Family; Visit Provider Nurse Practitioner Family
DX: Z00.00 Encounter for general adult medical examination without abnormal findings (principal); E03.9 Hypothyroidism, unspecified; E55.9 Vitamin D deficiency, unspecified; H91.93 Unspecified hearing loss, bilateral; K59.01 Slow transit constipation; Z12.4 Encounter for screening for malignant neoplasm of cervix; Z86.018 Personal history of other benign neoplasm; E66.9 Obesity, unspecified; L72.9 Follicular cyst of the skin and subcutaneous tissue, unspecified; Z12.83 Encounter for screening for malignant neoplasm of skin; Z80.3 Family history of malignant neoplasm of breast; Z68.32 Body mass index [BMI] 32.0-32.9, adult; Z82.49 Family history of ischemic heart disease and other diseases of the circulatory system

== ENCOUNTER 2024-10-31 08:52 | Outpatient (REF) | payer OTHER, SELFPAY | END 2024-10-31 08:53 | disposition home or self-care (01) | LOC: HO.WFDLDS 08:52 | PROVIDERS: Visit Provider Nurse Practitioner Family | DX: Z13.89 Encounter for screening for other disorder (principal) ==

== ENCOUNTER 2024-11-09 14:16 | Outpatient (REF) | payer OTHER, SELFPAY ==
[2024-11-09 17:42] LABS: Bacterial Vaginosis PCR NEGATIVE (Negative); Candida Group PCR NOT DETECTED (Not Detect); Candida glab krusei PCR NOT DETECTED (Not Detect); Trichomonas vaginalis PCR NOT DETECTED (Not Detect)
[2024-11-09 18:11] LABS: CT PCR NOT DETECTED (Not Detect.); NG PCR NOT DETECTED (Not Detect.)
== END 2024-11-09 14:17 | disposition home or self-care (01) ==
LOC: HO.LNP 14:16
PROVIDERS: PCP Nurse Practitioner Family; Visit Provider Advanced Practice Midwife
DX: N93.9 Abnormal uterine and vaginal bleeding, unspecified (principal); Z11.3 Encounter for screening for infections with a predominantly sexual mode of transmission; Z86.018 Personal history of other benign neoplasm
CPT/HCPCS: 81025; 81515; 87491; 87591; 87626; 88175

== ENCOUNTER 2024-11-09 14:16 | Outpatient (AMB) | payer OTHER, SELFPAY ==
--- NOTE | 2024-11-09 14:25 | MHC.OFFVIS ---
Vital Signs 11/09/24 14:33 Height 5 ft 5 in Weight 192 lb BMI 31.9 BP 104/66 Intake Visit Reasons: Control consult Intake Note: Month of September menstrual 20 days, period started up again today. Accompanied by: Self / Same As Patient Allergies Sulfa (Sulfonamide Antibiotics) Allergy (Mild, Verified 11/09/24 14:31) Rash HPI Comments Details: Patient is here today due to concerns for her hormones and having menses every 20d x 1yrs., lasting x 6-7d. Not currently sexually active. No pelvic pain or urinary symptoms. History of fibroids. [facility] Medical History Abnormal uterine bleeding (AUB) Elevated liver enzymes Elevated glucose level Impacted cerumen of both ears Surgical History No pertinent past surgical history Family History Father No problems noted. Mother No problems noted. 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 Current occupational exposures/hazards: No Gender identity: Female Cognitive needs: No Hearing needs: No Vision needs: No Female Reproductive History Menstrual Age of Menarche: 12 Date of last menstrual period: 11/09/24 control method: none Total pregnancies: 0 Review of Systems Const All systems reviewed & are unremarkable except as noted in HPI and below Physical Exam Vital Signs: Last Vital Signs BP 104/66 11/09/24 14:33 BMI result Body Mass Index 31.9 Const General: cooperative, healthy appearing and no acute distress Orientation/consciousness: patient oriented x3 GI Inspection: Yes normal to inspection Palpation (GI): Soft to palpation and Other GI palpation findings present (Nontender) Rectal Exam - Female: visual inspection normal General: Yes bladder normal to palpation External Female Exam: normal appearance of the urethra Speculum Exam - Vagina: normal appearance of the vagina, normal palpation and normal vaginal discharge Speculum Exam - Cervix: normal appearance of the cervix and normal palpation Bimanual exam- vagina & uterus: normal bimanual exam, normal palpation, uterine size normal, bladder normal to palpation, normal palpation, uterine shape normal and non-tender Bimanual Exam- Adnexa, other: normal adnexae Neuro General: patient oriented x3 Results AMB Test Urine AMB Test Urine Negative Last Edit by Alina Duong LPN on 11/09/24 15:06 Results Reviewed Results Reviewed: [address] [address] Ultrasound Report Signed Patient: Lalita Brown MR#: [id number] : 1980 Acct:[id number] Age/Sex: 43 / F ADM Date: 10/04/23 Loc: HO.US Attending Dr: Yandy Babcock CNM Ordering Physician: Yandy Babcock CNM Date of Service: 10/04/23 Procedure(s): US pelvic and transvaginal Accession Number(s): [id number] cc: Yandy Babcock CNM; Lakia Duncan IMPLEMENTATION ADVISOR~ EXAMINATION: US PELVIS CLINICAL INFORMATION: Personal history of neoplasm. COMPARISON: None available. TECHNIQUE: Ultrasound of the pelvis is performed using both transabdominal and transvaginal transducers along with Doppler. Transvaginal imaging is performed due to inadequate visualization transabdominally. FINDINGS: Uterus: The uterus is anteverted and retroflexed measuring 9.0 x 4.7 x 6.3 cm. The double wall endometrial thickness is 13 mm. The uterus is smooth in contour and has normal myometrial echogenicity. 3 mural fibroids are noted ranging in size from 1.5 cm up to 3.4 cm. Adnexa: Both ovaries are visualized. There is normal color flow to the adnexa. There is no ovarian torsion. There is no pelvic ascites or fluid collection. Right ovary measures 3.0 x 1.6 x 2.2 cm for a volume of 5.0 mL. Left ovary measures 3.4 x 2.7 x 2.8 cm for a volume of 13.5 mL which includes a cyst measuring 2.3 cm. US/US pelvic and transvaginal IMPRESSION: 1. Uterine fibroids. 2. A 2.3 cm left ovarian cyst. No follow-up is necessary. 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 Differential diagnosis-may include but not limited to- leiomyosarcoma which is a rare uterine sarcoma 3-7/100,000, difficult to distinguish from fibroids on ultrasound from uterine sarcoma's. Unlikely any single test will have a highly positive predictive value. Hysterectomy is not recommended for sole purpose of excluding malignant neoplasm. Consult for surgical exploration, medical treatment, other treatments, verses expectant management, pros and cons, risks and benefits. Expectant management follow up in 6 months, then yearly for stability. Patient prefers to proceed with expectant management. Referral to MD if indicated for level of care if indicated Report any PMB/AUB, pelvic pressure, bloating, or pain. (2) Abnormal uterine bleeding (AUB): Code(s): N93.9 - Abnormal uterine and vaginal bleeding, unspecified Category: Medical Plan Discussed workup for AUB to include pelvic ultrasound, cervical cultures, up-to-date lab work, and pap. Counseled regarding AUB recommended endometrial biopsy to rule out any abnormal uterine pathology including atypia, precancer, high today Orders: Orders HPV High risk Today N93.9 - Abnormal uterine and vaginal bleeding, unspecified US pelvic and transvaginal Today N93.9 - Abnormal uterine and vaginal bleeding, unspecified, Z86.018 - Personal history of other benign neoplasm AMB HCG Urine Test Today Z32.02 - Encounter for test, result negative Bacterial Vaginosis Panel Today Z11.3 - Encounter for screening for infections with a predominantly sexual mode of transmission CT NG by PCR Vag/Cerv Today Z11.3 - Encounter for screening for infections with a predominantly sexual mode of transmission Pap Smear Today N93.9 - Abnormal uterine and vaginal bleeding, unspecified Coding Diagnoses History of uterine fibroid Z86.018 Abnormal uterine bleeding (AUB) N93.9
[2024-11-09 14:33] VITALS: BP 104/66; BMI 31.9
--- OUTSIDE RECORDS SUMMARY | 2024-11-09 15:02 | XMS_ITS | Clinical Summary ---
Author Organization [facility]erg[facility] With [facility] Address [address] [place] [id number] Phone Care Team Providers Care Veterinary Radiologist Name Role Phone Chayo Cevallos MD Primary Care Provider Allergies Active Allergy Reactions Criticality Noted Date Comments Sulfa (Sulfonamide Antibiotics) 11/2022 Medications levothyroxine (SYNTHROID, LEVOTHROID) 100 MCG tablet 01/30/2023 Active Active Problems No known active problems Social History Tobacco Use Types Packs/Day Years Used Date Smoking Tobacco: Never Assessed Education Answer Date Recorded Are you interested in more education? Not on cj e 03/06/2023 Are you concerned about learning? [...] topic Medical Devices Not on file Insurance [facility] EPO [facility] D[facility]AL Care Teams Veterinary Radiologist Relationship Specialty Start Date End Date Chayo Cevallos MD [address] [facility] [address] [place] [id number] PCP - General 03/06/23 Additional Source Comments The information contained in this document represents components of the legal health record. It is not the complete legal health record.[facility]
== END 2024-11-09 15:20 | disposition home or self-care (01) ==
LOC: HO.HWS 14:17
PROVIDERS: PCP Nurse Practitioner Family; Visit Provider Advanced Practice Midwife
DX: Z32.02 Encounter for pregnancy test, result negative (principal)

== ENCOUNTER 2024-12-28 15:53 | Outpatient (REF) | payer OTHER, SELFPAY ==
--- NOTE | ~2024-12-28 | US_ITS ---
EXAMINATION: US PELVIS CLINICAL INFORMATION: Personal history of other benign neoplasm COMPARISON: Previous pelvic ultrasound September 2023 TECHNIQUE: Ultrasound of the pelvis is performed using both transabdominal and transvaginal transducers along with Doppler. Transvaginal imaging is performed due to inadequate visualization transabdominally. FINDINGS: Uterus: The uterus is anteverted and measures 9.6 x 5.2 x 6.4 cm. The double wall endometrial thickness is 0.5 mm. There are multiple uterine fibroids. Additional uterine fibroids are seen compared to September 2023 exam. Otherwise fibroids do not appear appreciably changed. 2.5 x 2.3 x 2.6 cm right cornual fibroid compared to 3.4 x 3.3 x 3 cm on prior exam, 2.1 x 1.5 x 1.3 cm intramural fundal fibroid, 1.6 x 1.7 x 1.6 cm posterior uterine body intramural fibroid compared to 2 x 2 x 2 cm on prior exam, 1.5 x 1.2 x 1.2 cm anterior uterine body intramural fibroid compared to 1.2 x 0.9 x 1.5 cm on prior exam and 1.9 x 1.7 x 1.6 cm upper left uterine body intramural fibroid. Adnexa: Both ovaries are visualized. There is normal color flow to the adnexa. There is no ovarian torsion. There is no pelvic ascites or fluid collection. Right ovary measures 2.7 x 1.4 x 1.9 cm. Left ovary measures 3.8 x 2.2 x 1.7 cm. 2 small complex cysts measuring 1.5 x 0.8 x 0.8 cm and 1.1 x 0.8 x 0.9 cm with internal echoes. Probably represent physiologic cysts. US/US pelvic and transvaginal IMPRESSION: Multiple uterine fibroids. Normal thickness endometrium. Normal right ovary. 2 small complex likely physiologic left ovarian cysts. Electronically signed by: Harriett Carmichael MD 12/28/2024 05:14 PM EDT
--- OUTSIDE RECORDS SUMMARY | 2024-12-28 16:53 | XMS_ITS | Clinical Summary ---
Author Organization [facility] Address [address] [place] [phone] Phone Care Team Providers Care Diesel Powerplant Mechanic Name Role Phone Chayo Cevallos MD Primary [...] MAMMOGRAM 2020 Adult Td,Tdap Booster 04/13/2022 04/13/2012 INFLUENZA VACCINE (#1) 2024 COVID-19 VACCINE (2023-2 5 season) 2024 HEPATITIS A VACCINES Aged Out No long [...] topic Medical Devices Not on file Insurance [facility] POS EPO [facility] POS [facility]PO [facility] POS E[facility] C[facility] DENTAL Care Teams Diesel Powerplant Mechanic Relationship Specialty Start Date End Date Chayo Cevallos MD 1961 [facility] [place] [id number] PCP - General 03/06/23 Additional Source Comments The information contained in this document represents components of the legal health record. It is not the complete legal health record.[facility]
== END 2024-12-28 15:54 | disposition home or self-care (01) ==
LOC: HO.US 15:53
PROVIDERS: PCP Nurse Practitioner Family; Visit Provider Advanced Practice Midwife
DX: N93.9 Abnormal uterine and vaginal bleeding, unspecified (principal); Z86.018 Personal history of other benign neoplasm
CPT/HCPCS: 76830; 76856

== ENCOUNTER → 2024-12-28 15:56 | Outpatient (BNV) | payer OTHER, SELFPAY | PROVIDERS: PCP Nurse Practitioner Family; Visit Provider Radiology Diagnostic Radiology | DX: D25.9 Leiomyoma of uterus, unspecified (principal); N83.202 Unspecified ovarian cyst, left side | CPT/HCPCS: 76830; 76856 ==

== ENCOUNTER 2025-02-20 15:06 | Outpatient (REF) | payer OTHER, SELFPAY | END 2025-02-20 15:07 | disposition home or self-care (01) | LOC: HO.LNP 15:06 | PROVIDERS: PCP Nurse Practitioner Family; Visit Provider Advanced Practice Midwife | DX: N83.292 Other ovarian cyst, left side (principal); Z86.018 Personal history of other benign neoplasm; N93.9 Abnormal uterine and vaginal bleeding, unspecified; Z32.02 Encounter for pregnancy test, result negative | CPT/HCPCS: 58100; 81025; 88305 ==

== ENCOUNTER 2025-02-20 15:06 | Outpatient (AMB) | payer OTHER, SELFPAY ==
[2025-02-20 15:16] VITALS: BP 124/82; BMI 33.3
--- NOTE | 2025-02-20 15:16 | A.OFFVIS_ITS ---
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 History of fibroids. Currently has her menses today. [facility] Medical History (Updated 02/20/25 @ 16:35 by Ivonne Richards CNM) Complex ovarian cyst Abnormal uterine bleeding (AUB) Elevated liver enzymes Elevated glucose level Impacted cerumen of both ears Surgical History No pertinent past surgical history Family History Father No problems noted. Mother No problems noted. 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 Current occupational exposures/hazards: No Gender identity: Female Cognitive needs: No Hearing needs: No Vision needs: No Female Reproductive History Menstrual Age of Menarche: 12 Date of last menstrual period: 02/15/25 Review of Systems Const All systems reviewed & are unremarkable except as noted in HPI and below Physical Exam Vital Signs: Last Vital Signs BP 124/82 02/20/25 15:16 BMI result Body Mass Index 33.3 Const General: cooperative, healthy appearing and no acute distress Orientation/consciousness: patient oriented x3 GI Inspection: Yes normal to inspection Palpation (GI): Soft to palpation and Other GI palpation findings present (Nontender) Rectal Exam - Female: visual inspection normal General: Yes bladder normal to palpation External Female Exam: normal appearance of the urethra Speculum Exam - Vagina: normal appearance of the vagina, normal palpation, normal vaginal discharge and vaginal bleeding Speculum Exam - Cervix: normal appearance of the cervix and normal palpation Bimanual exam- vagina & uterus: normal bimanual exam, normal palpation, uterine size normal, bladder normal to palpation, normal palpation, uterine shape normal and non-tender Bimanual Exam- Adnexa, other: normal adnexae OB/external & speculum: vaginal bleeding Neuro General: patient oriented x3 Office Procedures Endometrial Biopsy Details: The patient is here today for an endometrial biopsy due to AUB to rule out any pathology including atypical, hyperplasia or cancer cells of the uterus. She was counseled regarding anticipatory guidance for the procedure including the risks for pain, infection, bleeding, perforation, potential injury to the tissues may include the cervix, uterus, tubes, bladder and bowels. These injuries may include further treatment and evaluation including surgery, blood transfusions, antibiotics, hospitalizations and anesthesia. Permanent injury and scarring can occur. She was consented for the procedure, and the consent forms were signed. She is agreeable to have the procedure today. All questions were answered. Endometrial Biopsy Procedure: The patient was placed in the dorsal lithotomy position and a sterile speculum inserted. Using aseptic technique for the procedure. The cervix was cleansed with Betadine x 3 swabs. A single toothed tenaculum was placed on the cervix for stabilization and the uterus was sounded to 9 cm with a 4mm pipelle, and tissue sample obtained. Minimal bleeding was observed. The tissue sample was placed in formalin in a patient labeled container by staff assisting and sent to the pathology department for processing and interpretation. The patient tolerate the procedure well and was in good condition when leaving the department. Endometrial Biopsy Post Procedure Care: Nothing in the vagina including: tampons, douching or intimacy until all the bleeding has subsided. There may be some post procedure bleeding for several days, this bleeding is usually light and may turn to a light brown or pink color. Mild cramps may occurs. Nothing in the vaginal including: tampons, douching, or intimacy until all the bleeding has subsided. You may take an over the counter mild analgesic such as Tylenol or Advil (if no allergies) per the manufactures recommendation on dosing, frequency, and follow the directions completely. Call the office if any: fever (over 100.4), flu like symptoms, abdominal pain (worse than cramping), foul smelling, infected appearing vaginal discharge, or heavy bleeding. If indicated: Use condoms to prevent and STI's, and only after the bleeding has stopped completely. Return to the office in 2 weeks for results and plan of care. This note is constructed using voice recognition software. While every effort has been made to ensure accuracy, school resource officer errors may have been included. [id number] Biopsy Results AMB Test Urine AMB Test Urine Negative Last Edit by VAIBHAV Cuadra on 02/20/25 15:22 Results Reviewed Results Reviewed: Laboratory Last Values [facility]st Clinic Negative 02/20/25 15:[address] [address] Ultrasound Report Signed Patient: Lalita Brown MR#: [id number] : 1980 Acct:[id number] Age/Sex: 44 / F ADM Date: 12/28/24 Loc: .US Attending Dr: Ivonne Richards CNM Ordering Physician: Ivonne Richards CNM Date of Service: 12/28/24 Procedure(s): US pelvic and transvaginal Accession Number(s): [id number] cc: Ivonne Richards CNM; Sabrina Perez BANDER-BC~ Reason for Exam: Z86.018 - Personal history of other benign neoplasm EXAMINATION: US PELVIS CLINICAL INFORMATION: Personal history of other benign neoplasm COMPARISON: Previous pelvic ultrasound September 2023 TECHNIQUE: Ultrasound of the pelvis is performed using both transabdominal and transvaginal transducers along with Doppler. Transvaginal imaging is performed due to inadequate visualization transabdominally. FINDINGS: Uterus: The uterus is anteverted and measures 9.6 x 5.2 x 6.4 cm. The double wall endometrial thickness is 0.5 mm. There are multiple uterine fibroids. Additional uterine fibroids are seen compared to September 2023 exam. Otherwise fibroids do not appear appreciably changed. 2.5 x 2.3 x 2.6 cm right cornual fibroid compared to 3.4 x 3.3 x 3 cm on prior exam, 2.1 x 1.5 x 1.3 cm intramural fundal fibroid, 1.6 x 1.7 x 1.6 cm posterior uterine body intramural fibroid compared to 2 x 2 x 2 cm on prior exam, 1.5 x 1.2 x 1.2 cm anterior uterine body intramural fibroid compared to 1.2 x 0.9 x 1.5 cm on prior exam and 1.9 x 1.7 x 1.6 cm upper left uterine body intramural fibroid. Adnexa: Both ovaries are visualized. There is normal color flow to the adnexa. There is no ovarian torsion. There is no pelvic ascites or fluid collection. Right ovary measures 2.7 x 1.4 x 1.9 cm. Left ovary measures 3.8 x 2.2 x 1.7 cm. 2 small complex cysts measuring 1.5 x 0.8 x 0.8 cm and 1.1 x 0.8 x 0.9 cm with internal echoes. Probably represent physiologic cysts. US/US pelvic and transvaginal IMPRESSION: Multiple uterine fibroids. Normal thickness endometrium. Normal right ovary. 2 small complex likely physiologic left ovarian cysts. Electronically signed by: Harriett Carmichael MD 12/28/2024 05:14 PM EDT RP Dictated By: Harriett Carmichael MD Signed By: <Electronically signed by Harriett Carmichael MD in OV> 12/28/24 1714 DD/ 1609 TD/TT: 12/28/24 1624 Reservations Agent: DIPIKA Assessment & Plan Assessment & Plan (1) History of uterine fibroid: Code(s): Z86.018 - Personal history of other benign neoplasm Category: Medical Plan: Counseled re: Leiomyoma: common pelvic neoplasm. Differential diagnosis-may include but not limited to- leiomyosarcoma which is a rare uterine sarcoma 3- 7/100,000, difficult to distinguish from fibroids on ultrasound from uterine sarcoma's. Unlikely any single test will have a highly positive predictive value. Hysterectomy is not recommended for sole purpose of excluding malignant neoplasm. Consult for surgical exploration, medical treatment, other treatments, verses expectant management, pros and cons, risks and benefits. Expectant management follow up in 6 months, then yearly for stability. Patient prefers to proceed with expectant management. Referral to MD if indicated for level of care if indicated Report any changes with AUB, pelvic pressure, bloating, or pain. The patient expressed understanding and agreement with the plan of care. All of her questions and concerns were addressed to the best of my ability. (2) Complex ovarian cyst: Comment: Left side x2 Code(s): N83.299 - Other ovarian cyst, unspecified side Category: Medical Plan: Counseled regarding findings of: Complex ovarian cyst, which is often benign, and most resolve on their own overtime. Some develop into premalignant or malignant tumors. Limitations of testing for diagnostic purposes. Further monitoring and evaluation is recommended with US, possible CT, or MRI study. If persists, or is indicated (Ca-125, Carbohydrate Antigen 19-9, & Carcinoembryonic Antigen) labs will be ordered and referral to [facility]/ON[facility] or general gynecology for MD care if indicated for possible surgical consult. Follow up in person for test results. All of her questions and concerns were addressed to the best of my ability and shared decision making. She is agreeable to the plan of care. This note is constructed using voice recognition software. While every effort has been made to ensure accuracy, school resource officer errors may have been included. (3) Abnormal uterine bleeding (AUB): Code(s): N93.9 - Abnormal uterine and vaginal bleeding, unspecified Category: Medical Plan Endometrial biopsy completed. See procedure notes. Counseled regarding treatment options including the Mirena IUD as 1st choice options, then OCPs or other. Undecided, we will review the literature via the booklet and review at her next visit. Orders: Orders AMB HCG Urine Test Today N93.9 - Abnormal uterine and vaginal bleeding, unspecified US pelvic and transvaginal 07/11/25 Z86.018 - Personal history of other benign neoplasm US pelvic and transvaginal 03/12/25 N83.299 - Other ovarian cyst, unspecified side Surgical Today N93.9 - Abnormal uterine and vaginal bleeding, unspecified Coding Level of Care Code Procedure Only Diagnoses History of uterine fibroid Z86.018 Complex ovarian cyst N83.299 Abnormal uterine bleeding (AUB) N93.9 CPT Codes Endometrial Biopsy - CPT: 67907-Xlekedygrur Biopsy ([id number])
--- OUTSIDE RECORDS SUMMARY | 2025-02-20 18:48 | XMS_ITS | Clinical Summary ---
Author Organization [facility] Address [address] [place] [phone] Phone Care Team Providers Care Business Database Analyst Name Role Phone Chayo Cevallos MD Primary [...] Health Maintenance Due Date Last Done Comments LIPID PANEL 1980 TSH LEVEL 1980 DEPRESSION SCREENING 1992 SMOKING Hx and SMOKELESS TOB ACCO SCREENING 01/10/1993 HEPATITIS C SCREENING 01/10/1998 HIV ONE-TIME SCREENING (18-6 5 YEARS) 01/10/1998 PAP SMEAR 01/10/2001 SCREENING FOR DIABETES 01/10/2015 MAMMOGRAM 2020 Adult Td,Tdap Booster 04/13/2022 04/13/2012 INFLUENZA VACCINE (#1) 2024 COVID-19 VACCINE ( - 2024-2 6 season) 2024 COLOGUARD 01/10/2025 COLONOSCOPY 01/10/2025 COLORECTAL CANCER SCREENING 01/10/2025 FIT TEST 01/10/2025 FOBT 01/10/2025 SIGMOIDOSCOPY 01/10/2025 VIRTUAL COLONOSCOPY 01/10/2025 HEPATITIS A VACCINES Aged Out No long er eligible based on patient's age to complete this topic HIB VACCINES Aged Out No longer eligi ble based on patient's age to complete this topic IPV VACCINES Aged Out No longer eligi ble [...] topic Medical Devices Not on file Insurance [facility] POS EPO [employer] [facility] POS [facility] Care Teams Business Database Analyst Relationship Specialty Start Date End Date Chayo Cevallos MD [address] [facility] [place] [address] PCP - General 03/06/23 Additional Source Comments The information contained in this document represents components of the legal health record. It is not the complete legal health record.[facility]
== END 2025-02-20 16:33 | disposition home or self-care (01) ==
LOC: HO.HWS 15:07
PROVIDERS: PCP Nurse Practitioner Family; Visit Provider Advanced Practice Midwife
DX: N83.292 Other ovarian cyst, left side (principal); N93.9 Abnormal uterine and vaginal bleeding, unspecified; Z86.018 Personal history of other benign neoplasm; Z32.02 Encounter for pregnancy test, result negative
CPT/HCPCS: 58100

== ENCOUNTER 2025-03-01 15:57 | Outpatient (AMB) | payer OTHER, SELFPAY ==
--- NOTE | 2025-03-01 15:57 | A.OFFVIS_ITS ---
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 Time spent included review of pertinent office notes in the electronic health record; review of laboratory and imaging results; review of personal family medical history; discussing diagnosis and plan of care with the patient; documenting the encounter in the EMR. Patient presents to discuss: Endometrial biopsy results, history of AUB. [facility] Medical History (Updated 02/20/25 @ 16:35 by Ivonne Richards CNM) Complex ovarian cyst Abnormal uterine bleeding (AUB) Elevated liver enzymes Elevated glucose level Impacted cerumen of both ears Surgical History No pertinent past surgical history Family History Father No problems noted. Mother No problems noted. 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 Current occupational exposures/hazards: No Gender identity: Female Cognitive needs: No Hearing needs: No Vision needs: No Female Reproductive History Menstrual Age of Menarche: 12 Review of Systems Const All systems reviewed & are unremarkable except as noted in HPI and below Endo Reports no additional complaints Physical Exam Const General: cooperative, healthy appearing and no acute distress Psych Appearance: well kempt Attitude: cooperative Thought process: Normal thought process present Telehealth Telehealth Telehealth Platform: [employer] Location of provider rendering services: practice address Location of patient: address on file Patient Identification confirmed using: Name, : Yes Telehealth method: video Patient verbally consented to treatment: Yes Patient verbally consented to billing insurance company: Yes Patient informed of any privacy concerns related to visit: Yes Results Reviewed Results Reviewed: Name: Lalita Brown Age/Sex: 45/F Attending: Ivonne Richards CNM : 1980 Submitted by: Ivonne Richards CNM Copies to: YoonSabrina Watson MUNICIPAL BOND TRADER-BC MR #: [id number] Status: DEP REF Collected: 02/20/25 Location: [facility] Received: 02/21/25 Diagnosis Endometrium, biopsy: Focal endometrial glandular crowding and squamous morular metaplasia; breakdown present. See comment. Comment: Recommend curettage for further characterization (as clinically appropriate Assessment & Plan Assessment & Plan (1) Encounter to discuss test results: Code(s): Z71.2 - Person consulting for explanation of examination or test findings Plan Discussed: Endometrial biopsy results- Diagnosis Endometrium, biopsy: Focal endometrial glandular crowding and squamous morular metaplasia; breakdown present. See comment. Comment: Recommend curettage for further characterization (as clinically appropriate). Advised hysteroscopy consult for curettage to gather more cells for evaluation. Consult appointment to be made with Dr. Salmon for next week. Anticipatory guidance for hysteroscopy reviewed including NPO after midnight, designated line driver, anesthesia required. The patient expressed understanding and agreement with the plan of care. All of her questions and concerns were addressed to the best of my ability. This note is constructed using voice recognition software. While every effort has been made to ensure accuracy, appraisal technician errors may have been included. Coding Level of Care Code Tele Est Pt Level 3 (51534) Diagnoses Encounter to discuss test results Z71.2
--- OUTSIDE RECORDS SUMMARY | 2025-03-01 22:05 | XMS_ITS | Clinical Summary ---
Author Organization [facility] Address [address] [place] [id number] Phone Care Team Providers Care Receiver/Laborer Name Role Phone Chayo Cevallos MD Primary [...] topic Medical Devices Not on file [facility] POS [facility] POS [facility]PO [facility] POS [facility]PO [facility] [employer] POS EPO [place] [employer] [facility] [employer] Care Teams Receiver/Laborer Relationship Specialty Start Date End Date Chayo Cevallos MD [address] [place] [address] PCP - General 03/06/23 Additional Source Comments The information contained in this document represents components of the legal health record. It is not the complete legal health record.[facility]
== END 2025-03-02 07:18 | disposition home or self-care (01) ==
LOC: HO.HWS 15:57
PROVIDERS: PCP Nurse Practitioner Family; Visit Provider Advanced Practice Midwife
DX: Z71.2 Person consulting for explanation of examination or test findings (principal)
CPT/HCPCS: 98005

== ENCOUNTER 2025-03-07 14:39 | Outpatient (AMB) | payer OTHER, SELFPAY ==
--- NOTE | 2025-03-07 14:44 | MHC.OFFVIS ---
Vital Signs 03/07/25 15:13 Height 5 ft 5.5 in Weight 195 lb BMI 32.0 BP 118/84 Intake Visit Reasons: Hysteroscopy consult Electrolysis Engineer Required: No Information Interpreted: non-clinical & clinical Manager Performance: Manager Performance Present Allergies Sulfa (Sulfonamide Antibiotics) Allergy (Mild, Verified 03/07/25 15:15) Rash Is last menstrual period known: Yes Last menstrual period: 02/15/25 Post menopausal: No Patient : No Do you need a note to return to daycare/school/sports/work: Yes (for surgery on wednesday) HPI Comments Details: Presenting referred from Ivonne Richards CNM regarding endometrial biopsy done on 02/21/2025 for AUB, the pathology of which showed the following: Endometrium, biopsy: Focal endometrial glandular crowding and squamous morular metaplasia; breakdown present. See comment. Comment: Recommend curettage for further characterization (as clinically appropriate) Last Co testing in 11/20 was negative [facility] Medical History Complex ovarian cyst Abnormal uterine bleeding (AUB) Elevated liver enzymes Elevated glucose level Impacted cerumen of both ears Surgical History No pertinent past surgical history Family History Father No problems noted. Mother No problems noted. 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 Current occupational exposures/hazards: No Gender identity: Female Cognitive needs: No Hearing needs: No Vision needs: No Female Reproductive History Menstrual Age of Menarche: 12 Duration of menses: 6-7 days Date of last menstrual period: 02/15/25 Total pregnancies: 2 Full term: 2 Review of Systems Card Reports as per HPI and Reports no additional complaints Resp Reports as per HPI and Reports no additional complaints GI Reports as per HPI and Reports no additional complaints Reports as per HPI Physical Exam Vital Signs: Last Vital Signs BP 118/84 03/07/25 15:13 BMI result Body Mass Index 32.0 Const General: cooperative, healthy appearing and comfortable Resp Effort & Inspection: normal respiratory effort Auscultation: clear to auscultation bilaterally Percussion: percussion normal Cardio Palpation: normal PMI Rate: regular rate Rhythm: regular rhythm Heart sounds: no murmurs and no rubs Peripheral pulses: Peripheral pulses 2+ throughout GI Inspection: Yes normal to inspection Palpation (GI): Soft to palpation, nontender, no guarding, not rigid and No hepatosplenomegaly present Percussion: Yes normal to percussion Auscultation: normal bowel sounds Rectal Exam - Female: deferred Assessment & Plan Assessment & Plan (1) Abnormal uterine bleeding (AUB): Comment: crowded glands on email path Code(s): N93.9 - Abnormal uterine and vaginal bleeding, unspecified Category: Medical Plan: Discussed with the patient the results the pathology, recommended hysteroscopy D&C possible polypectomy/myomectomy. Discussed with the patient the procedure , all benefits and risks including but not limited to inability to complete the procedure , insufficient endometrial tissue for a complete evaluation of the endometrial cavity , bleeding, infection, possible need for blood transfusion with all its risk ( HIV,syphilis, Hepatitis, anaphylaxis shock, others..), injury to bladder, rectum, possible need for laparoscopy/laparotomy or hysterectomy. The patient verbalized understanding and signed the consent. Instructions given the patient to stay NPO after midnight the day prior to the procedure and to take only the specific medication (s) discussed the morning of the surgical procedure and to schedule a 2 week postoperative appointment (2) Uterine myoma: Code(s): D25.9 - Leiomyoma of uterus, unspecified Category: Medical Plan: Discussed with the patient the findings on pelvic ultrasound & the risk of myosarcoma; in addition reviewed with the patient that malignancy and pre malignancy cannot be ruled out without hysterectomy for pathological evaluation ; furthermore, explained to the patient the limitation of pelvic ultrasound and endometrial biopsy in the setting. Discussed with the patient the typical symptoms that are caused by myomas including but not limited to pelvic pain, pressure symptoms, abnormal uterine bleeding. In addition discussed with the patient options of treatment for myomas including: Serial ultrasounds periodically to follow-up on the size of the myoma while targeting the treatment against fibroids related symptoms ( control pills, Mirena IUD, progesterone treatment, GnRH agonist/antagonist, uterine artery embolization or endometrial ablation) versus surgical treatment including hysterectomy and or myomectomy. All pros and cons, risks and benefits of all options were discussed with the patient. The patient understands that delay in surgical treatment in case of myosarcoma can affect her prognosis, after further discussion, the patient decided to think about it and get back to us next visit Coding Level of Care Code Est Pt Level 3 (16485) Diagnoses Abnormal uterine bleeding (AUB) N93.9 Uterine myoma D25.9
[2025-03-07 15:13] VITALS: BP 118/84; BMI 32.0
--- OUTSIDE RECORDS SUMMARY | 2025-03-07 23:00 | XMS_ITS | Clinical Summary ---
Author Organization [facility] Address [address] [place] [phone] Phone Care Team Providers Care Radar Engineer Name Role Phone Chayo Cevallos MD Primary [...] topic Medical Devices Not on file Insurance [facility] POS [facility]PO [facility] POS EPO [facility] POS EPO [facility] [employer] [facility] E[facility] [place] [employer] [facility] EPO [facility] [employer] Care Teams Radar Engineer Relationship Specialty Start Date End Date Chayo Cevallos MD [address] [facility] [place] [id number] PCP - General 03/06/23 Additional Source Comments The information contained in this document represents components of the legal health record. It is not the complete legal health record.[facility]
== END 2025-03-07 15:40 | disposition home or self-care (01) ==
LOC: HO.HWS 14:40
PROVIDERS: PCP Nurse Practitioner Family; Visit Provider Obstetrics & Gynecology
DX: N93.9 Abnormal uterine and vaginal bleeding, unspecified (principal); D25.9 Leiomyoma of uterus, unspecified
CPT/HCPCS: 99213

== ENCOUNTER 2025-03-12 12:49 | Day surgery (SDC) | payer OTHER, SELFPAY ==
[2025-03-12] VITALS (11 sets, daily range): BP systolic 76–130; BP diastolic 45–91; PULSE 43–65; RESP 12–17; TEMP 36.4–37.6; O2SAT 95–99; BMI 32.4
[2025-03-12 13:25] LABS: UPreg QC Valid YES
[2025-03-12] MEDS: Lactated Ringers 1,000 ML 100 ML IVCONT (13:31)
--- NOTE | 2025-03-12 14:43 | MHC.SHP ---
Pre-Procedural Eval Section A - 24 Hr Update-Section A only Date of Service: 03/12/25 The patient is an INPATIENT: No Changes since office visit: No Cold of Flu in the past 2 weeks, No New Medical Problems, No Changes in Medication and No Patient answered all questions The patient has been examined within 24 hours of the surgical procedure. The History & Physical has been completed within 30 days and I have reviewed it.: Yes Section B - Complete if H&P > 30 days Chief Complaint: Abnormal uterine and vaginal bleeding, unspecified Allergies: Allergies Allergy/AdvReac Type Severity Reaction Status Date / Time Sulfa (Sulfonamide Allergy Mild Rash Verified 03/07/25 15:15 Antibiotics) Plan Diagnosis/Plan: Unchanged I have reviewed the history and physical and performed a pertinent physical examination on my patient. No changes have occurred unless specified. Time Spent With Patient Time: Total time managing care of this patient today ____ minutes.
--- NOTE | 2025-03-12 15:29 | PM.OP ---
Brief Operative Note Date of Service: 03/12/25 Pre-op diagnosis: AUB with crowded glands on EMB pathology Post-op diagnosis: same (Endometrial polyp) Procedure: Hysteroscopy D&C, Polypectomy Surgeon: Kapil Salmon MD Anesthesia: GLMA Was an Brand Ambassador Promotional Model used for this Procedure?: No Estimated blood loss (mL): 0 Pathology: other (Endometrial Scrapping. Polyp) Condition: stable Disposition: PACU
--- NOTE | 2025-03-12 15:30 | W.PM.OPN ---
Operative Note Operative Note Date of Service: 03/12/25 Narrative: Preop Diagnosis: EMB with crowded glands on EMB pathology Operation: Diagnostic Hysteroscopy, Dilataion & Curettage and polypectomy Post Op Diagnosis: Endometrial Polyp QBL: Minimal Anesthesia: GLMA Surgeon: Kapil Salmon MD Project Management Advisor: None Complication: None Pathology: Endometrial Scrapings, Endometrial polyp Procedure: The patient was put in the dorsal lithotomy position, scrubbed, and draped in the usual manner. A sterile speculum was inserted in the patient's vagina. The anterior lip of the cervix was grasped with a single tooth tenaculum. The cervix was dilated up to 5 mm, then the scope was inserted in the patient's uterus. Inspection revealed endometrial polyp. The Myosure Reach device was used; it was introduced through the operative channel and polypectomy done with no complications. The scope was then taken out from the uterine cavity, sharp curettings was carried on with minimal to moderate amount of tissues retrieved. At the end of the procedure, all instruments were taken out of the patient uterine and vaginal cavity. The single tooth tenaculum was removed and homeostasis was assured using pressure,. The patient tolerated the procedure well and was transferred to the PACU in a stable condition.
== END 2025-03-12 17:14 | disposition home or self-care (01) ==
PROVIDERS: Nurse Practitioner; PCP Nurse Practitioner Family; Visit Provider Obstetrics & Gynecology
PROC: 0UDB8ZZ Extraction of Endometrium, Via Natural or Artificial Opening Endoscopic (ICD-10-PCS; CPT 58558; principal; 2025-03-12 15:10)
DX: N93.9 Abnormal uterine and vaginal bleeding, unspecified (principal); N84.0 Polyp of corpus uteri; D25.9 Leiomyoma of uterus, unspecified; N83.299 Other ovarian cyst, unspecified side; R74.8 Abnormal levels of other serum enzymes; R73.09 Other abnormal glucose; Z87.891 Personal history of nicotine dependence; Z88.2 Allergy status to sulfonamides
CPT/HCPCS: 58558; 81025; 88305; J1100; J2003; J2405; J2704; J3010

== ENCOUNTER → 2025-03-12 12:49 | Outpatient (BNV) | payer OTHER, SELFPAY | PROVIDERS: PCP Nurse Practitioner Family; Visit Provider Obstetrics & Gynecology | DX: R89.8 Other abnormal findings in specimens from other organs, systems and tissues (principal); N84.0 Polyp of corpus uteri | CPT/HCPCS: 58558 ==

== ENCOUNTER 2025-03-20 10:10 | Outpatient (AMB) | payer OTHER, SELFPAY ==
--- NOTE | 2025-03-20 10:22 | MHC.OFFVIS ---
Vital Signs 03/20/25 10:23 Height 5 ft 5.5 in Weight 195 lb BMI 32.0 Intake Visit Reasons: post op Dehairer Required: No Information Interpreted: non-clinical & clinical Accompanied by: Self / Same As Patient Allergies Sulfa (Sulfonamide Antibiotics) Allergy (Mild, Verified 03/20/25 10:24) Rash Is last menstrual period known: Yes HPI Comments Details: The patient is presenting post hysteroscopy D&C/polypectomy no complaints minimal vaginal bleeding no feverishness chills or abdominal pain. The pathology showed the following: A. Endometrial polyp, resection: Fragments of benign late secretory endometrium; no atypia or carcinoma. B. Endometrium, curettage: Focal crowded glands with squamous metaplasia, fragments consistent with polyp, focal features suggesting chronic endometritis, and benign late secretory endometrium (see comment). Comment: Squamous metaplasia may be associated with benign hyperplasia, atypical hyperplasia or neoplasia. No definitive atypia or carcinoma is identified. Follow-up with a repeat endometrial sample within 4-6 months is advised to exclude persistence, or earlier if there are clinical concerns, to exclude atypia. Chronic endometritis may be due to polyps. The specimens are reported as received [facility] Medical History Complex ovarian cyst Abnormal uterine bleeding (AUB) Elevated liver enzymes Elevated glucose level Impacted cerumen of both ears Surgical History No pertinent past surgical history Family History Father No problems noted. Mother No problems noted. 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 Current occupational exposures/hazards: No Gender identity: Female Cognitive needs: No Hearing needs: No Vision needs: No Female Reproductive History Menstrual Age of Menarche: 12 Review of Systems Const All systems reviewed & are unremarkable except as noted in HPI and below Reports as per HPI and Reports no additional complaints GI Reports no additional complaints Reports no additional complaints Physical Exam Vital Signs: BMI result Body Mass Index 32.0 Assessment & Plan Assessment & Plan (1) Abnormal uterine bleeding (AUB): Comment: crowded glands on D&C path Code(s): N93.9 - Abnormal uterine and vaginal bleeding, unspecified Category: Medical Plan: Discussed with the patient the results of pathology showing crowded glands with squamous metaplasia and its association with endometrial hyperplasia and/or or malignant. [employer] Consultant Oncology referral placed. Appointment scheduled with Dr. Carter on04/10 @ 2 pm Instructed the patient to call our office back in case a referral appointment is not scheduled, missed or canceled so that we will assist on rescheduling another appointment, the patient verbalized understanding agreed with the plan. (2) Complex ovarian cyst: Comment: Left side x2 Code(s): N83.299 - Other ovarian cyst, unspecified side Category: Medical Plan: The patient is scheduled for follow-up ultrasound on 04/11 and a follow-up appointment afterwards Orders: Referrals Gynecologic Oncology Referral N93.9 - Abnormal uterine and vaginal bleeding, unspecified Coding Level of Care Code Est Pt Level 3 (48420) Diagnoses Abnormal uterine bleeding (AUB) N93.9 Complex ovarian cyst N83.299
[2025-03-20 10:23] VITALS: BMI 32.0
== END 2025-03-20 11:15 | disposition home or self-care (01) ==
LOC: HO.HWS 10:11
PROVIDERS: PCP Nurse Practitioner Family; Visit Provider Obstetrics & Gynecology
DX: N93.9 Abnormal uterine and vaginal bleeding, unspecified (principal); N83.299 Other ovarian cyst, unspecified side
CPT/HCPCS: 99213